=== PATIENT | female | born 1975 | race Caucasian/White ===

== ENCOUNTER 2017-11-30 16:49 | Emergency (ER) | payer MEDICAID, SELFPAY ==
[2017-11-30 17:04] VITALS: BP 144/94; PULSE 90; RESP 20; TEMP 37.1; O2SAT 100; BMI 24.1
--- NOTE | 2017-11-30 17:13 | HMH.EDUTC ---
[facility] [place] Disposition Clinical Impression: Nausea Disposition: Home, Self-Care Condition on Discharge: Good Instructions: DI for Nausea -- Adult, Sore Throat Additional Instructions: Drink plenty of fluids Take medication as prescribed FOllow up with family doctor Return if needed Small frequent meals, no fried food for next few days to allow stomach time to settle Over the counter Motrin or Tylenol as needed for fever or pain If you began to have any life threatening conditions go straight to ER Prescriptions: Ondansetron [Zofran 4mg ODT] 4 mg PO Q8H PRN #20 tab.rapdis PRN Reason: Nausea Referrals: Richie Arora [Primary Care Provider] - Forms: Work/School Release Time of Disposition: 17:24 Medical Decision Making - Medical Records Medical records reviewed: Yes: I reviewed the patient's medical records. Vital Signs: 11/30/17 17:04 Temperature 98.7 F Temperature Source Temporal Artery Scan Pulse Rate [Right Radial] 90 Respiratory Rate 20 Blood Pressure [Right Arm] 144/94 Blood Pressure Mean [Right Arm] 110 02 Sat by Pulse Oximetry 100 Oxygen Delivery Method Room Air - Lab Data Lab results reviewed: Yes: I reviewed the patient's lab results. - Jeffry Inquiry Pt receiving controlled substance: No Jeffry was queried for this patient: No [facility] [place] HPI - General Stated complaint: Nausea Mode of Arrival: Family Vehicle Source of Information: Patient Limitations: No Limitations Description of Symptoms (Recalled from Triage Doc. by RN): PT C/O NAUSEA, HEADACHE,BODYACHES AND BILATERAL EAR PAIN FOR 2 DAYS. HEENT Symptoms (Recalled from RN notes): Yes (HEADACHE, EAR PAIN,BODY ACHES) Resp Symptoms (Recalled from RN notes): No Skin Symptoms (Recalled from RN notes): No MS Symptoms (Recalled from RN notes): No Functional Status (Recalled from RN notes): NA - History of Present Illness Provider Complaint: Patient state that she has not been feeling well for 2 days State that she has been having sore throat, cough, nausea, bilateral ear pain and sore throat States that several members of her family has had the flu and she was worried that she may have it too. State that all day today she has had nausea and state that she has not vomited yet but her stomach feels very upset - Related Data Home Medications Medication Instructions Recorded Confirmed Buprenorphine HCl/Naloxone HCl 1 each SL DAILY 11/30/17 11/30/17 [Suboxone 8 mg-2 mg Sl Film] Trazodone HCl 100 mg PO DAILY 11/30/17 11/30/17 Previous Rx's Medication Instructions Recorded Ondansetron [Zofran 4mg ODT] 4 mg PO Q8H PRN #20 tab.rapdis 11/30/17 Allergies Allergy/AdvReac Type Severity Reaction Status Date / Time Penicillins [PENICILLINS] Allergy Unknown Verified 11/30/17 17:09 buspirone [From BuSpar] Allergy Verified 11/30/17 17:09 - Worker's Comp Is this a Worker's Comp case?: No [facility] History I have reviewed the patient's past medical history: Yes Medical History: Denies:: Cancer, Diabetes Mellitus Type 1, Diabetes Mellitus Type 2, MRSA Laterality Cases: Bilateral: Carpal Tunnel Release Amputation: No - Social History Smoking Status: Never smoker Tobacco Type: cigarettes Alcohol Intake: never - Psychiatric History Expresses thoughts of harming self/others: None Suicide Plan Description: No Plan ROS Obtained: Yes All systems reviewed & no additional complaints - Constitutional Constitutional: Reports body ache, Reports chills - ENT Ears, Nose, Mouth, and Throat: Reports nasal congestion, Reports sore throat - Respiratory Respiratory: Yes cough - Gastrointestinal Gastrointestingal: Reports: nausea. Denies: diarrhea, vomiting Physical Exam - General General appearance: alert, in no apparent distress - Expanded ENT Exam Comment: Throat mildly red, irritated, no exudate - Respiratory Respiratory exam: Present: normal lung sounds bilaterally. Absent: respiratory distress - Cardiova
[2017-11-30 17:15] LABS: UTC Influenza A Antigen Negative (Negative); UTC Influenza B Antigen Negative (Negative)
--- NOTE | 2017-11-30 17:16 | ED_ITS ---
[facility] [place] Disposition Clinical Impression: Nausea Disposition: Home, Self-Care Condition on Discharge: Good Instructions: DI for Nausea -- Adult, Sore Throat Additional Instructions: Drink plenty of fluids Take medication as prescribed FOllow up with family doctor Return if needed Small frequent meals, no fried food for next few days to allow stomach time to settle Over the counter Motrin or Tylenol as needed for fever or pain If you began to have any life threatening conditions go straight to ER Prescriptions: Ondansetron [Zofran 4mg ODT] 4 mg PO Q8H PRN #20 tab.rapdis PRN Reason: Nausea Referrals: Richie Arora [Primary Care Provider] - Forms: Work/School Release Time of Disposition: 17:24 Medical Decision Making - Medical Records Medical records reviewed: Yes: I reviewed the patient's medical records. Vital Signs: 11/30/17 17:04 Temperature 98.7 F Temperature Source Temporal Artery Scan Pulse Rate [Right Radial] 90 Respiratory Rate 20 Blood Pressure [Right Arm] 144/94 Blood Pressure Mean [Right Arm] 110 02 Sat by Pulse Oximetry 100 Oxygen Delivery Method Room Air - Lab Data Lab results reviewed: Yes: I reviewed the patient's lab results. - Jeffry Inquiry Pt receiving controlled substance: No Jeffry was queried for this patient: No [facility] [place] HPI - General Stated complaint: Nausea Mode of Arrival: Family Vehicle Source of Information: Patient Limitations: No Limitations Description of Symptoms (Recalled from Triage Doc. by RN): PT C/O NAUSEA, HEADACHE,BODYACHES AND BILATERAL EAR PAIN FOR 2 DAYS. HEENT Symptoms (Recalled from RN notes): Yes (HEADACHE, EAR PAIN,BODY ACHES) Resp Symptoms (Recalled from RN notes): No Skin Symptoms (Recalled from RN notes): No MS Symptoms (Recalled from RN notes): No Functional Status (Recalled from RN notes): NA - History of Present Illness Provider Complaint: Patient state that she has not been feeling well for 2 days State that she has been having sore throat, cough, nausea, bilateral ear pain and sore throat States that several members of her family has had the flu and she was worried that she may have it too. State that all day today she has had nausea and state that she has not vomited yet but her stomach feels very upset - Related Data Home Medications Medication Instructions Recorded Confirmed Buprenorphine HCl/Naloxone HCl 1 each SL DAILY 11/30/17 11/30/17 [Suboxone 8 mg-2 mg Sl Film] Trazodone HCl 100 mg PO DAILY 11/30/17 11/30/17 Previous Rx's Medication Instructions Recorded Ondansetron [Zofran 4mg ODT] 4 mg PO Q8H PRN #20 tab.rapdis 11/30/17 Allergies Allergy/AdvReac Type Severity Reaction Status Date / Time Penicillins [PENICILLINS] Allergy Unknown Verified 11/30/17 17:09 buspirone [From BuSpar] Allergy Verified 11/30/17 17:09 - Worker's Comp Is this a Worker's Comp case?: No [facility] History I have reviewed the patient's past medical history: Yes Medical History: Denies:: Cancer, Diabetes Mellitus Type 1, Diabetes Mellitus Type 2, MRSA Laterality Cases: Bilateral: Carpal Tunnel Release Amputation: No - Social History Smoking Status: Never smoker Tobacco Type: cigarettes Alcohol Intake: never - Psychiatric History Expresses thoughts of harming self/others: None Suicide Plan Description: No Plan
[2017-11-30 17:27] VITALS: BP 139/86; PULSE 87; RESP 20; TEMP 37.1; O2SAT 100
== END 2017-11-30 17:31 | disposition home or self-care (01) ==
PROVIDERS: Emergency Provider Nurse Practitioner; Family Provider Emergency Medicine; PCP Internal Medicine
DX: R11.0 Nausea (principal)
CPT/HCPCS: 87804; 99202

== ENCOUNTER 2019-03-16 12:19 | Emergency (ER) | payer MEDICAID, SELFPAY ==
[2019-03-16 12:20] VITALS: BP 128/89; PULSE 86; RESP 18; TEMP 37.1; O2SAT 98; BMI 25.0
--- NOTE | 2019-03-16 12:46 | HMH.EDUTC ---
[facility] [place] Disposition Clinical Impression: Lymphadenopathy Athlete's foot Qualifiers: Laterality: bilateral Qualified Code(s): B35.3 - Tinea pedis Disposition: Home, Self-Care Condition on Discharge: Good Instructions: DI for Lymphadenopathy Additional Instructions: Apply warm wet compresses to the affected area on your neck three or four times per day until this resolves. Follow up with your regular doctor. Take the medications as prescribed. I put refills on the medication for athlete's foot. You will probably need to repeat it on down the road. Prescriptions: Clotrimazole [Antifungal] 1 applicatio TP BID 14 Days #1 tube Clindamycin HCl [Clindamycin HCl 300mg Cap] 300 mg PO Q8 10 Days #30 cap Referrals: Richie Arora [Primary Care Provider] - Forms: Work/School Release Time of Disposition: 13:04 Medical Decision Making - Medical Records Medical records reviewed: Yes: I reviewed the patient's medical records. - Jeffry Inquiry Pt receiving controlled substance: No Jeffry was queried for this patient: No Vital Signs: 03/16/19 12:20 03/16/19 13:07 Temperature 98.8 F 98.8 F Temperature Source Oral Oral Pulse Rate 86 Pulse Rate [Left Radial] 86 Respiratory Rate 18 18 Blood Pressure 128/89 Blood Pressure [Right Arm] 128/89 Blood Pressure Mean [Right Arm] 102 Blood Pressure Source Automatic Cuff Blood Pressure Source [Right Arm] Automatic Cuff Blood Pressure Position Sitting Blood Pressure Position [Right Arm] Sitting 02 Sat by Pulse Oximetry 98 Oxygen Delivery Method Room Air Room Air [facility] [place] HPI - General Stated complaint: neck swollen Time Seen by Provider: 03/16/19 12:46 Mode of Arrival: Ambulatory Source of Information: Patient Limitations: No Limitations Description of Symptoms (Recalled from Triage Doc. by RN): swollen gland and athlete's foot HEENT Symptoms (Recalled from RN notes): Yes Resp Symptoms (Recalled from RN notes): No Skin Symptoms (Recalled from RN notes): No MS Symptoms (Recalled from RN notes): Yes Functional Status (Recalled from RN notes): wnl - History of Present Illness Provider Complaint: She has a sore throat and a swollen lymph node in the right side of her neck. This has been going on for the past 4 days. Around a month ago she had similar symptoms. She took antibiotics that were prescribed by her doctor and it got better. She also states she has athelete's foot of both her feet. - Related Data Home Medications Medication Instructions Recorded Confirmed Trazodone HCl 100 mg PO DAILY 11/30/17 02/10/19 Previous Rx's Medication Instructions Recorded Clindamycin HCl [Clindamycin HCl 300 mg PO Q8 10 Days #30 cap 03/16/19 300mg Cap] Clotrimazole [Antifungal] 1 applicatio TP BID 14 Days #1 tube 03/16/19 Allergies Allergy/AdvReac Type Severity Reaction Status Date / Time Penicillins [PENICILLINS] Allergy Unknown Verified 11/30/17 17:09 buspirone [From BuSpar] Allergy Verified 11/30/17 17:09 - Worker's Comp Is this a Worker's Comp case?: No [facility] History - Hepatitis A Screen Drug use history?: No High risk sexual behaviors?: No History of sexually transmitted infection?: No Currently employed?: No Childcare worker?: No Do you have indoor plumbing?: Yes Do you have electricity?: Yes Attestation statement:: This patient has been screened for Hepatitis A risk factors. I have reviewed the patient's past medical history: Yes Medical History: Reports:: Hypertension Denies:: Cancer, Diabetes Mellitus Type 1, Diabetes Mellitus Type 2, Gastrointestinal Bleed, MRSA, Ulcer Laterality Cases: Bilateral: Carpal Tunnel Release Other Surgeries: Yes: Appendectomy, Cholecystectomy, , Hysterectomy-Total Amputation: No Fractures: No - Social History Educational Level: Completed High School Smoking Status: Current every day smoker Tobacco Type: cigarettes # Packs/Day (cigarettes): 1 Alcohol Intake: never Occupational St
--- NOTE | 2019-03-16 12:54 | ED_ITS ---
[facility] [place] Disposition Clinical Impression: Lymphadenopathy Athlete's foot Qualifiers: Laterality: bilateral Qualified Code(s): B35.3 - Tinea pedis Disposition: Home, Self-Care Condition on Discharge: Good Instructions: DI for Lymphadenopathy Additional Instructions: Apply warm wet compresses to the affected area on your neck three or four times per day until this resolves. Follow up with your regular doctor. Take the medications as prescribed. I put refills on the medication for athlete's foot. You will probably need to repeat it on down the road. Prescriptions: Clotrimazole [Antifungal] 1 applicatio TP BID 14 Days #1 tube Clindamycin HCl [Clindamycin HCl 300mg Cap] 300 mg PO Q8 10 Days #30 cap Referrals: Richie Arora [Primary Care Provider] - Forms: Work/School Release Time of Disposition: 13:04 Medical Decision Making - Medical Records Medical records reviewed: Yes: I reviewed the patient's medical records. - Jeffry Inquiry Pt receiving controlled substance: No Jeffry was queried for this patient: No Vital Signs: 03/16/19 12:20 03/16/19 13:07 Temperature 98.8 F 98.8 F Temperature Source Oral Oral Pulse Rate 86 Pulse Rate [Left Radial] 86 Respiratory Rate 18 18 Blood Pressure 128/89 Blood Pressure [Right Arm] 128/89 Blood Pressure Mean [Right Arm] 102 Blood Pressure Source Automatic Cuff Blood Pressure Source [Right Arm] Automatic Cuff Blood Pressure Position Sitting Blood Pressure Position [Right Arm] Sitting 02 Sat by Pulse Oximetry 98 Oxygen Delivery Method Room Air Room Air [facility] [place] HPI - General Stated complaint: neck swollen Time Seen by Provider: 03/16/19 12:46 Mode of Arrival: Ambulatory Source of Information: Patient Limitations: No Limitations Description of Symptoms (Recalled from Triage Doc. by RN): swollen gland and athlete's foot HEENT Symptoms (Recalled from RN notes): Yes Resp Symptoms (Recalled from RN notes): No Skin Symptoms (Recalled from RN notes): No MS Symptoms (Recalled from RN notes): Yes Functional Status (Recalled from RN notes): wnl - History of Present Illness Provider Complaint: She has a sore throat and a swollen lymph node in the right side of her neck. This has been going on for the past 4 days. Around a month ago she had similar symptoms. She took antibiotics that were prescribed by her doctor and it got better. She also states she has athelete's foot of both her feet. - Related Data Home Medications Medication Instructions Recorded Confirmed Trazodone HCl 100 mg PO DAILY 11/30/17 02/10/19 Previous Rx's Medication Instructions Recorded Clindamycin HCl [Clindamycin HCl 300 mg PO Q8 10 Days #30 cap 03/16/19 300mg Cap] Clotrimazole [Antifungal] 1 applicatio TP BID 14 Days #1 tube 03/16/19 Allergies Allergy/AdvReac Type Severity Reaction Status Date / Time Penicillins [PENICILLINS] Allergy Unknown Verified 11/30/17 17:09 buspirone [From BuSpar] Allergy Verified 11/30/17 17:09 - Worker's Comp Is this a Worker's Comp case?: No [facility] History - Hepatitis A Screen Drug use history?: No High risk sexual behaviors?: No History of s
[2019-03-16 13:07] VITALS: BP 128/89; PULSE 86; RESP 18; TEMP 37.1; O2SAT 98
== END 2019-03-16 13:08 | disposition home or self-care (01) ==
PROVIDERS: Emergency Provider Nurse Practitioner Family; PCP Internal Medicine
DX: R59.1 Generalized enlarged lymph nodes (principal); B35.3 Tinea pedis; I10 Essential (primary) hypertension; F17.210 Nicotine dependence, cigarettes, uncomplicated; Z88.0 Allergy status to penicillin
CPT/HCPCS: 99201

== ENCOUNTER → 2019-10-27 16:56 | Outpatient (CLI) | payer OTHER, SELFPAY | PROVIDERS: Visit Provider Internal Medicine | DX: N39.0 Urinary tract infection, site not specified (principal) | CPT/HCPCS: 87086 ==

== ENCOUNTER → 2019-11-03 15:25 | Outpatient (CLI) | payer OTHER, SELFPAY ==
--- NOTE | 2019-11-03 15:38 | ECG_ITS ---
APPROVED REPORT Exam: Resting ECG HR:80 bpm ECG Measurements Heart Rate 80 AXES GA 162 P 43 QRSd 80 QRS 30 QT 388 T 2 QTc 447 <Conclusion> Normal sinus rhythm Normal ECG Electronically signed by : Richie Arora, 11/03/2019 15:46:50
== END ==
PROVIDERS: PCP Internal Medicine; Visit Provider Internal Medicine
DX: R07.9 Chest pain, unspecified (principal); R03.0 Elevated blood-pressure reading, without diagnosis of hypertension
CPT/HCPCS: 93005

== ENCOUNTER → 2019-11-09 14:16 | Outpatient (CLI) | payer OTHER, SELFPAY ==
--- NOTE | 2019-11-09 14:23 | CT_ITS ---
PROCEDURE: CT ABDOMEN PELVIS WO CON CLINICAL INDICATION: LT FLANK PAIN,HEMATURIA,H/O RENAL CALCULI Left flank pain, recently passed a stone with microscopic hematuria [facility] wo con from 02/10/2019 TECHNIQUE: Axial images obtained with sagittal and coronal reformats. All CT scans at the facility use one or more dose reduction, viz: automated exposure control, ma/kV adjustment per patient size (including targeted exams where dose is matched to indication, i.e. head), or iterative reconstruction technique. FINDINGS: LOWER THORAX: Status post cholecystectomy. Liver, spleen, adrenal glands, and pancreas have an unremarkable appearance. Kidneys have an unremarkable appearance. No renal or ureteral calculi or hydronephrosis. There is a moderate amount of retained colonic feces. Scattered small nodes are present in the mesenteries and right lower quadrant. There is history of appendectomy. There has been a prior hysterectomy. There is a small umbilical hernia which contains fat. IMPRESSION: 1. No acute finding. 2. No renal or ureteral calculi. 3. Constipation Dictated by: Simon Coburn MD 11/09/2019 14:53 Electronically signed by Simon Coburn MD in [place] 11/09/2019 14:53
== END ==
PROVIDERS: PCP Internal Medicine; Visit Provider Internal Medicine
DX: R10.9 Unspecified abdominal pain (principal); R31.0 Gross hematuria; Z87.442 Personal history of urinary calculi
CPT/HCPCS: 74176

== ENCOUNTER → 2019-11-30 10:50 | Outpatient (CLI) | payer OTHER, SELFPAY ==
--- NOTE | 2019-11-30 | CA_ITS ---
APPROVED REPORT Exam: Exercise Treadmill Technologist: Sona Haley Ht: 5 ft 4 in Wt: 150 lbs BSA: 1.73 m2 HR: 75 bpm BP: 116/89 mmHg Medical History Medical History: HTN Medications: Aspirin,,,,, Losartan,,,,, Cephalaxin,,,,, Quetiapine,,,,, NeBivolol,,,,, Allergies: PCN,BUSPIRONE Stress Test Details Test: Manual Treadmill HR Resting HR: 96 bpm Max Heart Rate (APMHR): 177 bpm Max HR Achieved: 171 bpm Target HR (85% APMHR): 150 bpm % of APMHR: 96 Recovery HR: 106 bpm BP Resting BP: 129.0/91.0 mmHg Max BP: 162.0/86.0 mmHg Recovery BP: 120.0/72.0 mmHg ECG Resting ECG: NORMAL SINUS RHYTHM Clinical Exercise duration: 07:00 min Highest Stage Achieved: Exercise capacity: 10.1 METs Stress ECG Conclusion EXERCISED 7:00 ON STEFANO PROTOCOL STOPPING DUE TO SOA. MAX HEART RATE 166 BPM WHICH IS 94% OF PM FOR AGE. MAX BP 162/86. METS = 10.1. TEST STOPPED DUE TO SOA AND LEG FATIGUE. NO CHEST PAIN. FREQUENT PAC'S AND OCCASIONAL PVC. ALLOWING FOR MOTION ARTIFACT DURING EXERCISE THE ST RESPONSE IS PROBABLY WITHIN NORMAL. WITHIN NORMAL GXT. ECHO IMAGING (REST AND STRESS) REPORTED SEPARATELY. Electronically signed by : Waqar Laurent, 12/01/2019 13:54:31
--- NOTE | 2019-11-30 10:51 | CA_ITS ---
APPROVED REPORT EXAM: Comprehensive 2D, Doppler, and color-flow Echocardiogram Machine Quilt Stuffer: Rosalee Washburn RDCS Ht: 5 ft 4 in Wt: 150lbs BSA: 1.73 BP: 124/85 mmHg Indications: Shortness of Breath R06.02, Chest Pain R07.89 STRESS ECHO Conclusion 1. The EKG portion of the exercise stress echo is negative for ischemia, patient has good exercise capacity achieved 10.1 mets of workload on treadmill, the blood pressure response to exercise was adequate, there was no exercise-induced chest discomfort. 2. No obvious echocardiographic evidence of segmental wall motion abnormality with exercise to suggest underlying ischemic heart disease, preserved left ventricular systolic function. 3. Normal exercise stress echo. Electronically signed by : Waqar Laurent, 12/01/2019 13:56:38
== END ==
PROVIDERS: PCP Internal Medicine; Visit Provider Internal Medicine Cardiovascular Disease
DX: R07.89 Other chest pain (principal); R06.09 Other forms of dyspnea; I10 Essential (primary) hypertension; F17.200 Nicotine dependence, unspecified, uncomplicated; Z82.49 Family history of ischemic heart disease and other diseases of the circulatory system
CPT/HCPCS: 93017; 93350

== ENCOUNTER 2020-10-13 13:43 | Emergency (ER) | payer OTHER, SELFPAY ==
[2020-10-13 15:30] VITALS: BP 140/103; PULSE 91; RESP 20; TEMP 36.8; O2SAT 98; BMI 27.4
--- NOTE | 2020-10-13 15:49 | HMH.EDUTC ---
[facility] [place] Disposition Clinical Impression: Bronchitis Sinusitis Qualifiers: Sinusitis location: unspecified location Chronicity: unspecified Qualified Code(s): J32.9 - Chronic sinusitis, unspecified Disposition: Home, Self-Care Condition on Discharge: Good Instructions: Sinusitis, DI for Sinusitis, Acute Bronchitis, Azithromycin, Methylprednisolone, Albuterol Oral Inhalation Additional Instructions: ? Start antibiotic today. Be sure to complete entire prescription even if feeling better ? Monitor temp. Tylenol every 4 hours as needed and / or ibuprofen every 6 hours as needed ( As long as your primary care physician has told you that it ok to take both. For fever/aches/pains ER if no less than 101 despite Tylenol or Motrin ? Humidifier/vaporizer or hot steamy shower ? Inhaler every 4-6 hours as needed like we discussed. If unsure how to use it, ask pharmacist to demonstrate how. Should help open airways and improve cough, wheezing, and shortness of breath ? Mucinex during the day for your cough and cough suppressant only at night. Be sure to drink lots of water. Insurance may not cover a prescriptions for mucinex. Might be cheaper to get 400mg tablets and take 2 tablet in the morning, mid-day and evening with lots of water. *Start steroid today. Helps with inflammation therefore, cough and wheezing. Follow directions on the package. Reviewed side effects. Patient reports taking them before. Follow up IMMEDIATELY for new or worsening of symptoms OR no noticeable improvement over the next 48-72 hours. 911 immediately for any life threatening symptoms such as chest pain or difficulty breathing You were tested for today for COVID19 your test result should be back in the next 24-48 hours, you may call to the [facility] to see if your test results are back in the next 48 hours [phone] [facility] hours are 9am-9pm You was given a handout with instructions for Self Quarantine and Self isolation for while you wait on test results and what to do if they are positive If you are positive the Health Dept will be contacting you also Prescriptions: Albuterol Sulfate [Proventil-HFA 90mcg/puff Inh] 1 - 2 puffs IH Q4HP PRN #1 inh PRN Reason: Shortness Of Breath Transmission Status: Pending to [facility] # methylPREDNISolone [Medrol 4mg tab] 4 mg PO DIRECTED #21 tab Transmission Status: Pending to [id number] [facility] # Azithromycin [Z-Keaton 250mg Tab] 250 mg PO DIRECTED #6 tab Transmission Status: Pending to [facility] # Referrals: Richie Arora [Primary Care Provider] - As needed Time of Disposition: 15:57 Medical Decision Making - Jeffry Inquiry Pt receiving controlled substance: No Jeffry was queried for this patient: No Vital Signs: 10/13/20 15:30 Temperature 98.3 F Temperature Source Oral Pulse Rate [Right Brachial] 91 H Respiratory Rate 20 Blood Pressure [Right Arm] 140/103 H Blood Pressure Mean [Right Arm] 115 Blood Pressure Source [Right Arm] Automatic Cuff Blood Pressure Position [Right Arm] Sitting 02 Sat by Pulse Oximetry 98 Oxygen Delivery Method Room Air - Lab Data Lab results reviewed: Yes: I reviewed the patient's lab results. Orders (Tests/Meds): ORDERS Category Date Time Status Covid-19 Nasal PCR ([facility]) Routine Lab 10/13/20 15:15 Received [facility] [place] HPI - General Stated complaint: cough, MUSTAFA SOB Time Seen by Provider: 10/13/20 15:49 Mode of Arrival: Ambulatory Source of Information: Patient Limitations: No Limitations Description of Symptoms (Recalled from Triage Doc. by RN): PATIENT C/O COUGH, FEVER AND CHEST CONGESTION SINCE YESTERDAY MORNING HEENT Symptoms (Recalled from RN notes): No Resp Symptoms (Recalled from RN notes): Yes Skin Symptoms (Recalled from RN notes): No MS Symptoms (Recalled from RN notes): No Functional Status (Recalled from RN notes): wnl - History of Present Illness Provider Complaint: Patient states that she has been having cough, chest
[2020-10-13 16:00] VITALS: BP 140/103; PULSE 91; RESP 20; TEMP 36.8; O2SAT 98
[2020-10-13 20:07] LABS: UTC Influenza A Antigen Negative (Negative)
[2020-10-13 20:08] LABS: UTC Influenza B Antigen Negative (Negative)
== END 2020-10-13 16:08 | disposition home or self-care (01) ==
PROVIDERS: Emergency Provider Nurse Practitioner; PCP Internal Medicine
DX: Z20.822 Contact with and (suspected) exposure to COVID-19 (principal); J20.9 Acute bronchitis, unspecified; J32.9 Chronic sinusitis, unspecified; I10 Essential (primary) hypertension; F17.210 Nicotine dependence, cigarettes, uncomplicated; Z88.0 Allergy status to penicillin; R00.2 Palpitations; Z79.899 Other long term (current) drug therapy
CPT/HCPCS: 87804; 99202; G0463; U0003

== ENCOUNTER 2021-01-08 04:22 | Emergency (ER) | payer OTHER, SELFPAY ==
[2021-01-08 04:33] VITALS: BP 136/91; PULSE 88; RESP 16; TEMP 36.6; O2SAT 98; BMI 27.4
--- NOTE | 2021-01-08 04:55 | HMH.EDEYEP ---
ED Disposition Clinical Impression: Corneal abrasion Qualifiers: Encounter type: initial encounter Laterality: right Qualified Code(s): S05.01XA - Injury of conjunctiva and corneal abrasion without foreign body, right eye, initial encounter Disposition: Home, Self-Care Condition on Discharge: Good Instructions: DI for Corneal Abrasion Additional Instructions: call dr rothman this am for close follow up Referrals: Richie Arora [Primary Care Provider] - - Critical Care Critical Care Time: No Attestation: On 01/08/21, the high probability of a clinically significant, sudden or life threatening deterioration of the following system(s) required my full and direct attention, intervention and personal management. The time I documented below is in addition to time spent performing reported procedures but includes the following listed in this critical care notation. Medical Decision Making - Medical Records Medical records reviewed: Yes: I reviewed the patient's medical records. - Jeffry Inquiry Pt receiving controlled substance: No Vital Signs: 01/08/21 04:33 Temperature 97.9 F Temperature Source Oral Pulse Rate [Right] 88 Respiratory Rate 16 Blood Pressure [Right Arm] 136/91 H Blood Pressure Mean [Right Arm] 106 Blood Pressure Source [Right Arm] Automatic Cuff Blood Pressure Position [Right Arm] Supine 02 Sat by Pulse Oximetry 98 Oxygen Delivery Method Room Air Medical Decision Narrative: call dr rothman this am for follow up Eye Problem HPI - General Chief complaint: Eye Problems Stated complaint: Pain in Rt eye Time Seen by Provider: 01/08/21 04:45 Mode of Arrival: Ambulatory Source of Information: Patient, Medical Record Limitations: No Limitations Description of Symptoms (Recalled from ER Triage Doc. by RN): Pt states she got something in her eye yesterday and it got worse tonight, Pt's right eye red and watering - History of Present Illness HPI Narrative: fb sensation rt eye worse tonight - MD chief complaint: foreign body Onset (ago): hour(s) Onset description: gradual Location: right eye Eye Symptoms: foreign body sensation Place: home Severity: moderate Treatments Prior to Arrival: none - Related Data Patient tetanus UTD: Yes Home Medications Medication Instructions Recorded Confirmed aspirin 81 mg tablet,delayed 81 mg PO DAILY 11/15/19 11/15/19 release quetiapine 50 mg tablet 50 mg PO DAILY tab 11/15/19 11/15/19 bisoprolol fumarate 5 mg tablet 5 mg PO DAILY tab 12/12/19 12/12/19 Previous Rx's Medication Instructions Recorded losartan 50 mg-hydrochlorothiazide 1 tab PO DAILY #30 tab 11/15/19 12.5 mg tablet Albuterol Sulfate [Proventil-HFA 1 - 2 puffs IH Q4HP PRN #1 inh 10/13/20 90mcg/puff Inh] Azithromycin [Z-Keaton 250mg Tab] 250 mg PO DIRECTED #6 tab 10/13/20 methylPREDNISolone [Medrol 4mg 4 mg PO DIRECTED #21 tab 10/13/20 tab] Allergies Allergy/AdvReac Type Severity Reaction Status Date / Time Penicillins [PENICILLINS] Allergy Unknown Verified 12/12/19 08:48 buspirone [From BuSpar] Allergy Verified 12/12/19 08:48 [facility] History - Hepatitis A Screen Drug use history?: No High risk sexual behaviors?: No History of sexually transmitted infection?: No Currently employed?: No Childcare worker?: No Do you have indoor plumbing?: Yes Do you have electricity?: Yes Attestation statement:: This patient has been screened for Hepatitis A risk factors. I have reviewed the patient's past medical history: Yes Medical History: Reports:: Heart Murmur, Hypertension, Palpitations Denies:: Cancer, Diabetes Mellitus Type 1, Diabetes Mellitus Type 2, Gastrointestinal Bleed, MRSA, Ulcer Laterality Cases: Bilateral: Carpal Tunnel Release Other Surgeries: Yes: Appendectomy, Cholecystectomy, , Hysterectomy-Total Amputation: No Fractures: No - Social History Smoking Status: Current every day smoker Tobacco Type: cigarettes # Packs/Day (c
[2021-01-08 05:22] VITALS: BP 132/88; PULSE 82; RESP 16; TEMP 36.6; O2SAT 98
== END 2021-01-08 05:24 | disposition home or self-care (01) ==
PROVIDERS: Emergency Provider Emergency Medicine; PCP Internal Medicine
DX: S05.01XA Injury of conjunctiva and corneal abrasion without foreign body, right eye, initial encounter (principal); I10 Essential (primary) hypertension; R01.1 Cardiac murmur, unspecified; F17.210 Nicotine dependence, cigarettes, uncomplicated; Z88.0 Allergy status to penicillin
CPT/HCPCS: 99281

== ENCOUNTER → 2021-02-03 09:46 | Outpatient (CLI) | payer OTHER, SELFPAY ==
--- NOTE | 2021-02-03 09:49 | MM_ITS ---
PROCEDURE INFORMATION: Exam: MG Screening 3D Mammography Exam date and time: 02/03/2021 9:49 AM Age: 46 years old Clinical indication: Encounter for screening mammogram for malignant neoplasm of breast TECHNIQUE: Imaging protocol: Screening tomosynthesis and 2D mammography including computer-aided detection (CAD) when performed. COMPARISON: No relevant prior studies available. FINDINGS: MAMMOGRAPHY: Breast composition: The breast tissue is heterogeneously dense, which may obscure small masses. Mass: None. Architectural distortion: None. Calcifications: No suspicious calcifications. Asymmetric density: None. Skin thickening: None. Axillary adenopathy: None. IMPRESSION: No mammographic evidence of malignancy. Annual screening is recommended unless otherwise clinically indicated. ASSESSMENT: BI-RADS Category 1: Negative
== END ==
PROVIDERS: PCP Internal Medicine; Visit Provider Internal Medicine
DX: Z12.31 Encounter for screening mammogram for malignant neoplasm of breast (principal)
CPT/HCPCS: 77063; 77067

== ENCOUNTER → 2021-02-14 14:58 | Outpatient (CLI) | payer OTHER, SELFPAY ==
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
== END ==
PROVIDERS: PCP Internal Medicine; Visit Provider Internal Medicine
DX: M25.561 Pain in right knee (principal)
CPT/HCPCS: 73562

== ENCOUNTER 2021-05-24 18:18 | Emergency (ER) | payer OTHER, SELFPAY ==
[2021-05-24 19:10] VITALS: BP 166/104; PULSE 86; RESP 18; TEMP 37.1; O2SAT 100; BMI 25.4
--- NOTE | 2021-05-24 19:32 | HMH.EDUTC ---
[facility] [place] Clinical Impression: Exposure to COVID-19 virus Sinusitis Qualifiers: Sinusitis location: unspecified location Chronicity: unspecified Qualified Code(s): J32.9 - Chronic sinusitis, unspecified Disposition: Home, Self-Care Condition on Discharge: Good Instructions: DI for COVID-19 (Suspected or Confirmed ), Coronavirus Disease 2019, Preventing the Spread of Coronavirus Discharge Instructions Additional Instructions: *Monitor Temp, Over the counter Motrin or Tylenol as directed/as needed Tylenol every 4 hours and Motrin every 6 hours (as long as your family doctor has told you that you can take it) for fever or pain. and straight to ER if unable to lower temp less than 101.0 after medication given *Warm salt water gargles may help to soothe the throat *Throat Lozenges *Warm fluids like tea with honey may help to soothe the throat *Sleep elevated *Humidifier/Vaporizer Follow up IMMEDIATELY for new or worsening symptoms or no Noticeable improvement over the next 48-72 hours. 911 for difficulty breathing or swallowing Make sure to follow up with Family Doctor for further evaluation and treatment of your Blood pressure You were tested for today for COVID19 your test result should be back in the next 24-48 hours, you may call to the [facility] to see if your test results are back in the next 48 hours [phone] [facility] hours are 9am-9pm You was given a handout with instructions for Self Quarantine and Self isolation for while you wait on test results and what to do if they are positive If you are positive the Health Dept will be contacting you also Make sure to take your Vitamins Vit. C Vit D and Zinc if you can take them Prescriptions: methylPREDNISolone [Medrol 4mg tab] 4 mg PO DIRECTED #21 tab Transmission Status: Pending to [facility] Azithromycin [Z-Keaton 250mg Tab] 250 mg PO DIRECTED #6 tab Transmission Status: Pending to [facility] Referrals: Richie Arora [Primary Care Provider] - As needed Forms: Work/School Release Time of Disposition: 20:07 Medical Decision Making - Jeffry Inquiry Pt receiving controlled substance: No Jeffry was queried for this patient: No Vital Signs: 05/24/21 19:10 05/24/21 19:53 Temperature 98.8 F 98.8 F Temperature Source Oral Pulse Rate 86 Pulse Rate [Right Brachial] 86 Respiratory Rate 18 18 Blood Pressure 166/104 H Blood Pressure [Right Arm] 166/104 H Blood Pressure Mean [Right Arm] 124 Blood Pressure Source [Right Arm] Automatic Cuff Blood Pressure Position [Right Arm] Sitting 02 Sat by Pulse Oximetry 100 Oxygen Delivery Method Room Air Orders (Tests/Meds): ED MEDICATIONS Discontinued Medications Generic Name Dose Route Start Last Admin Trade Name Freq PRN Reason Stop Dose Admin Ketorolac Tromethamine 30 mg 05/24/21 19:40 05/24/21 19:50 Ketorolac 60mg/2ml Vial IM 05/24/21 19:41 30 mg ONCE ONE Administration ORDERS Category Date Time Status Covid-19 Nasal PCR ([facility]) Routine Lab 05/24/21 19:04 Received Medical Decision Narrative: Discussed with patient about blood pressure and recommended transfer to the ED for further work up and evaluation and patient declined states that she feels like her BP is elevated due to headache and will follow up with her PCP if needed for blood pressure wants to get tested for COVID Patient states that she has taken Toradol in the past without complications or reactions Patient state that she has taken azithromycin and medrol in the past without reaction or complication state that headache is better after medication [facility] HPI - General Stated complaint: exposure, headache,sore throat Time Seen by Provider: 05/24/21 19:32 Mode of Arrival: Ambulatory Source of Information: Patient Limitations: No Limitations Description of Symptoms (Recalled from Triage Doc. by RN): COVID TEST D/T EXPOSURE. C/O HEADACHE, DIZZINESS, AND SORE THROAT HEENT Symptoms (Recalled from RN notes):
[2021-05-24 19:53] VITALS: BP 166/104; PULSE 86; RESP 18; TEMP 37.1; O2SAT 100
== END 2021-05-24 20:10 | disposition home or self-care (01) ==
PROVIDERS: Emergency Provider Nurse Practitioner; PCP Internal Medicine
DX: Z20.822 Contact with and (suspected) exposure to COVID-19 (principal); J32.9 Chronic sinusitis, unspecified; I10 Essential (primary) hypertension; R01.1 Cardiac murmur, unspecified; R00.2 Palpitations; F17.210 Nicotine dependence, cigarettes, uncomplicated; Z79.899 Other long term (current) drug therapy
CPT/HCPCS: 96372; 99202; G0463; U0003

== ENCOUNTER → 2021-07-03 16:19 | Outpatient (CLI) | payer OTHER, SELFPAY ==
--- NOTE | 2021-05-31 09:06 | PC.NURSE ---
relayed positive covid results to pt.
== END ==
PROVIDERS: Visit Provider Nurse Practitioner Family
DX: Z20.822 Contact with and (suspected) exposure to COVID-19 (principal); U07.1 COVID-19
CPT/HCPCS: U0003

== ENCOUNTER 2021-10-23 10:10 | Emergency (ER) | payer OTHER, SELFPAY ==
[2021-10-23 12:27] VITALS: BP 126/95; PULSE 67; RESP 18; TEMP 36.6; O2SAT 99; BMI 25.7
--- NOTE | 2021-10-23 12:46 | HMH.EDUTC ---
[facility] [place] Disposition Clinical Impression: Gastroenteritis, Exposure to COVID-19 virus Disposition: Home, Self-Care Condition on Discharge: Good Instructions: Gastroenteritis Diet, Viral Gastroenteritis, DI for Viral Gastroenteritis -- Adult Additional Instructions: Drink plenty of fluids. Take tylenol or ibuprofen for pain or fever. Take the medications as directed. Follow up with your regular doctor. GO TO THE ER FOR ANY WORSENING SYMPTOMS Quarantine until you know the results of your covid-19 test. Notify your school or workplace of your results and follow their instructions regarding return to work/school. The promethazine will make you drowsy, so don't drive or operate heavy machinery after taking it. The zofran shouldn't make you as drowsy as the promethazine. Prescriptions: Ondansetron [Zofran 4mg ODT] 4 mg PO Q8HP PRN #20 tab PRN Reason: Nausea Transmission Status: Pending to [facility] Promethazine HCl [Phenergan 25mg tab] 25 mg PO Q6H PRN #20 tab PRN Reason: Nausea And Vomiting Transmission Status: Pending to [facility] Referrals: Richie Arora [Primary Care Provider] - Forms: Work/School Release Time of Disposition: 12:52 Medical Decision Making - Medical Records Medical records reviewed: No: I reviewed the patient's medical records. - Jeffry Inquiry Pt receiving controlled substance: No Vital Signs: 10/23/21 12:27 Temperature 97.8 F Temperature Source Oral Pulse Rate [Left] 67 Respiratory Rate 18 Blood Pressure [Right Arm] 126/95 H Blood Pressure Mean [Right Arm] 105 02 Sat by Pulse Oximetry 99 [facility] HPI - General Stated complaint: vomiting Time Seen by Provider: 10/23/21 12:46 Mode of Arrival: Ambulatory Source of Information: Patient Limitations: No Limitations Description of Symptoms (Recalled from Triage Doc. by RN): PT C/O N/V AND FEVER. PT DECLINES FLU/COVID AND STREP SWABS. PT STATES SHE NEEDS A WORK NOTE. HEENT Symptoms (Recalled from RN notes): No Resp Symptoms (Recalled from RN notes): No Skin Symptoms (Recalled from RN notes): No MS Symptoms (Recalled from RN notes): No Functional Status (Recalled from RN notes): WNL - History of Present Illness Provider Complaint: She states that she has had n/v since 0330 this morning. She denies any diarrhea but she has had abominal cramping like it was going to start. She denies any sore throat, cough, congestion or fever. She has had some chilling. Her daughter had a stomach virus about 4 days ago. She tested negative for covid then and she got better after about 24 hours of vomiting. This patient has been fully vaccinated against covid-19 and influenza. She works at the [employer]. - Related Data Home Medications Medication Instructions Recorded Confirmed buprenorphine 2 mg-naloxone 0.5 mg 1 film BUCCAL DAILY 05/30/21 05/30/21 sublingual film estradiol 2 mg tablet 2 mg PO DAILY 05/30/21 05/30/21 trazodone 100 mg tablet 100 mg PO HS PRN 05/30/21 05/30/21 Previous Rx's Medication Instructions Recorded Ondansetron [Zofran 4mg ODT] 4 mg PO Q8HP PRN #20 tab 10/23/21 Promethazine HCl [Phenergan 25mg 25 mg PO Q6H PRN #20 tab 10/23/21 tab] Allergies Allergy/AdvReac Type Severity Reaction Status Date / Time Penicillins [PENICILLINS] Allergy Unknown Verified 05/30/21 11:21 buspirone [From BuSpar] Allergy Verified 05/30/21 11:21 - Worker's Comp Is this a Worker's Comp case?: No [facility] History - Hepatitis A Screen Drug use history?: No High risk sexual behaviors?: No History of sexually transmitted infection?: No Currently employed?: No Childcare worker?: No Do you have indoor plumbing?: Yes Do you have electricity?: Yes Attestation statement:: This patient has been screened for Hepatitis A risk factors. I have reviewed the patient's past medical history: Yes Medical History: Reports:: Heart Murmur, Hypertension, Palpitations
[2021-10-23 13:00] VITALS: BP 126/95; PULSE 67; RESP 18; TEMP 36.6
== END 2021-10-23 13:01 | disposition home or self-care (01) ==
PROVIDERS: Emergency Provider Nurse Practitioner Family; PCP Internal Medicine
DX: K52.9 Noninfective gastroenteritis and colitis, unspecified (principal); Z20.822 Contact with and (suspected) exposure to COVID-19; I10 Essential (primary) hypertension; F17.210 Nicotine dependence, cigarettes, uncomplicated; Z79.899 Other long term (current) drug therapy
CPT/HCPCS: 99202; C9803; G0463; U0003; U0005

== ENCOUNTER → 2021-10-30 12:15 | Outpatient (CLI) | payer OTHER, SELFPAY ==
[2021-10-31 11:18] LABS: Covid-19 Nasal PCR Sendout Lex NOT DETECTED
== END ==
PROVIDERS: Visit Provider Nurse Practitioner
DX: Z20.822 Contact with and (suspected) exposure to COVID-19 (principal)
CPT/HCPCS: C9803; U0004; U0005

== ENCOUNTER → 2021-11-14 14:43 | Outpatient (CLI) | payer OTHER, SELFPAY ==
--- NOTE | 2021-11-14 | ECG_ITS ---
APPROVED REPORT Exam: Resting ECG HR:74 bpm ECG Measurements Heart Rate 74 AXES RI 169 P 47 QRSd 84 QRS 45 QT 386 T 26 QTc 413 Conclusion SINUS RHYTHM NORMAL ECG UNCONFIRMED REPORT Electronically signed by : Richie Arora MD 11/19/2021 13:58:12
== END ==
PROVIDERS: PCP Internal Medicine; Visit Provider Internal Medicine
DX: R07.89 Other chest pain (principal)
CPT/HCPCS: 93005

== ENCOUNTER 2021-12-14 12:45 | Emergency (ER) | payer OTHER, SELFPAY ==
[2021-12-14 13:22] VITALS: BP 134/101; PULSE 112; RESP 16; TEMP 36.9; O2SAT 96; BMI 25.7
[2021-12-14 13:30] LABS: UTC Influenza A Antigen Negative (Negative)
[2021-12-14 13:31] LABS: UTC Influenza B Antigen Negative (Negative)
--- NOTE | 2021-12-14 13:49 | HMH.EDUTC ---
[facility] [place] Disposition Clinical Impression: Viral syndrome Disposition: Home, Self-Care Condition on Discharge: Good Instructions: Cough, DI for Viral Syndrome, DI for Nausea -- Adult Additional Instructions: *Monitor Temp, Over the counter Motrin or Tylenol as directed/as needed Tylenol every 4 hours and Motrin every 6 hours (as long as your family doctor has told you that you can take it) for fever or pain. and straight to ER if unable to lower temp less than 101.0 after medication given *Warm salt water gargles may help to soothe the throat *Throat Lozenges *Warm fluids like tea with honey may help to soothe the throat *Sleep elevated *Humidifier/Vaporizer Drink extra fluids with and between meals. If you have difficulty drinking, try very small amounts of water or suck on ice chips. ? Avoid fruit juices, as these do not replace minerals and can actually increase diarrhea. ? Children and adults can use sports drinks to replenish electrolytes. Younger children and infants should use products formulated for children, like oral rehydration solutions. ? Eat food in small amounts and let your stomach recover. ? Get lots of rest. You may feel tired or weak. ? No greasy or fried foods for the next 24-48 hours BRAT diet Bananas Rice Apples and Hendron ? Make sure to drink plenty of liquids ? Return if needed ? Straight to ER if any life threatening symptoms ? Zofran as prescribed ?? Follow up with family doctor in the next 48-72 hours if no improvement or any worsening of symptoms Follow up IMMEDIATELY for new or worsening symptoms or no Noticeable improvement over the next 48-72 hours. 911 for difficulty breathing or swallowing Prescriptions: Benzonatate [Benzonatate 100mg cap] 100 mg PO Q8HP PRN #30 cap PRN Reason: Cough [facility] Status: [facility] Ondansetron [Zofran 4mg ODT] 4 mg PO TIDP PRN #12 tab PRN Reason: Nausea Transmission Status: [facility] to [facility] Referrals: Richie Arora [Primary Care Provider] - As needed Time of Disposition: 13:57 Medical Decision Making - Jeffry Inquiry Pt receiving controlled substance: No Jeffry was queried for this patient: No Vital Signs: 12/14/21 13:22 12/14/21 13:53 Temperature 98.5 F Temperature Source Oral Pulse Rate [Left] 112 H Respiratory Rate 16 Blood Pressure [Right Arm] 134/101 H 127/97 H Blood Pressure Mean [Right Arm] 112 107 02 Sat by Pulse Oximetry 96 - Lab Data Lab results reviewed: Yes: I reviewed the patient's lab results. Lab Results 12/14/21 13:18: Influenza Type A Ag Negative, Influenza Type B Ag Negative Orders (Tests/Meds): ORDERS Category Date Time Status Full Resp Panel w/COVID ([facility]) Routine Lab 12/14/21 13:53 Ordered [facility] HPI - General Stated complaint: fever,cough Time Seen by Provider: 12/14/21 13:49 Mode of Arrival: Ambulatory Source of Information: Patient Limitations: No Limitations Description of Symptoms (Recalled from Triage Doc. by RN): pt c/o a fever, cough, fatigue and congestion x2 days. HEENT Symptoms (Recalled from RN notes): Yes Resp Symptoms (Recalled from RN notes): Yes Skin Symptoms (Recalled from RN notes): No MS Symptoms (Recalled from RN notes): No Functional Status (Recalled from RN notes): wnl - History of Present Illness Provider Complaint: Patient state that she has been having body aches, cough, and fatigue States that this morning she was having some nausea States that she didnt throw up but felt like she was going too and had a low grade fever State that she took Home COVID test and it was negative but grandchild is having similar symptoms - Related Data Home Medications Medication Instructions Recorded Confirmed buprenorphine 2 mg-naloxone 0.5 mg 1 film BUCCAL DAILY 05/30/21 05/30/21 sublingual film estradiol 2 mg tablet 2 mg PO DAILY 05/30/21 05/30/21 trazodone 100 mg tablet 100 mg PO HS PRN 05/30/21 05/30/21 Previous Rx's Med
[2021-12-14 13:53] VITALS: BP 127/97
[2021-12-14 14:02] VITALS: BP 127/97; PULSE 112; RESP 16; TEMP 36.9
[2021-12-14 14:02] LABS: Adenovirus,PCR Not Detected (NotDetected); Coronavirus 229E Not Detected (NotDetected); Coronavirus NL63 Not Detected (NotDetected); Coronavirus OC43 Not Detected (NotDetected); Coronovirus HKU1,PCR Not Detected (NotDetected); Human Metapneumovirus Not Detected (NotDetected); Influenza A, PCR Not Detected (NotDetected); Influenza AH1, 2009 Not Detected (NotDetected); Influenza AH1, PCR Not Detected (NotDetected); Influenza AH3,PCR Not Detected (NotDetected); Rhinovirus/Enterovirus Not Detected (NotDetected)
[2021-12-14 14:03] LABS: Bordetella Pertussis Not Detected (NotDetected); Chlamydophila Pneumoniae, PCR Not Detected (NotDetected); Coronavirus 19, PCR Not Detected (NotDetected); Influenza B, PCR Not Detected (NotDetected); Mycoplasma Pneumoniae, PCR Not Detected (NotDetected); Parainfluenza 1, PCR Not Detected (NotDetected); Parainfluenza 2, PCR Not Detected (NotDetected); Parainfluenza 3, PCR Not Detected (NotDetected); Parainfluenza 4, PCR Not Detected (NotDetected); Respiratory Syncytial Virus Not Detected (NotDetected)
== END 2021-12-14 14:03 | disposition home or self-care (01) ==
PROVIDERS: Emergency Provider Nurse Practitioner; PCP Internal Medicine
DX: B34.9 Viral infection, unspecified (principal); I10 Essential (primary) hypertension; F17.210 Nicotine dependence, cigarettes, uncomplicated
CPT/HCPCS: 87581; 87632; 87798; 87804; 99213; C9803; G0463; U0003; U0005

== ENCOUNTER → 2021-12-15 11:45 | Outpatient (CLI) | payer OTHER, SELFPAY ==
--- NOTE | 2021-12-15 11:49 | XR_ITS ---
FINAL REPORT CLINICAL HISTORY: FEVER AND COUGH. -COVID TEST, smoker COMPARISON: January 03, 2017 FINDINGS: Two views of the chest were obtained. The heart size and pulmonary vascularity are within normal limits. The mediastinum is normal. No acute pulmonary abnormality is identified. There is no pneumothorax. The bony thorax is intact. IMPRESSION: No active cardiopulmonary disease. Reviewed, Interpreted and Dictated by Kayden Rizvi III, MD Transcribed by Catia Garibay Authenticated by Kayden Rizvi III, MD on 12/15/2021 01:14:19 PM [facility]
== END ==
PROVIDERS: PCP Internal Medicine; Visit Provider Internal Medicine
DX: R05.9 Cough, unspecified (principal); R50.9 Fever, unspecified; Z72.0 Tobacco use
CPT/HCPCS: 71046

== ENCOUNTER 2022-07-02 16:25 | Emergency (ER) | payer OTHER, SELFPAY ==
[2022-07-02 16:26] VITALS: BP 137/89; PULSE 73; RESP 18; TEMP 36.9; O2SAT 100; BMI 25.7
--- NOTE | 2022-07-02 16:49 | EXP.UTC ---
Discharge Plan Disposition Patient Disposition: Home, Self-Care Condition: Good Prescriptions Prescriptions: New promethazine-DM 6.25-15 mg/5 mL Syrup 5 ml PO Q6H PRN (Reason: Cough) Qty: 240 0RF methylprednisolone 4 mg Tablets,Dose Pack 4 mg PO DIRECTED Qty: 21 0RF benzonatate [benzonatate] 100 mg capsule 100 mg PO TIDP PRN (Reason: Cough) Qty: 30 0RF cefdinir 300 mg capsule 300 mg PO BID Qty: 20 0RF No Action trazodone 100 mg tablet 100 mg PO HS PRN estradiol 2 mg tablet 1 mg PO DAILY ondansetron 4 MG tablet,disintegrating 4 mg PO TIDP PRN (Reason: Nausea) Qty: 12 0RF Referrals Follow up/Referrals: Richie Arora MD [Primary Care Provider] - See instructions Lisa Shine DPM [Staff Physician] - See instructions Activity Restrictions/Add. Instructions Additional Instructions/Restrictions: Drink plenty of fluids. Take tylenol or ibuprofen for pain or fever. Take the medications as directed. Follow up with your regular doctor. GO TO THE ER FOR ANY WORSENING SYMPTOMS Don't start the oral steroids until tomorrow, since you had the shot here today. The cough medication (promethazine dm) will make you drowsy, so don't drive or operate heavy machinery after taking it. Clinical Impressions Clinical Impression: Asthma exacerbation in COPD, Acute bronchitis Stand Alone Forms Stand Alone Forms: Work/School Release Instructions Patient Instructions: DI for Crush Injury Discharge ED Provider: Brad Warren [facility] General Stated complaint: COUGH, BODY ACHES POSS FEVER Mode of Arrival: Ambulatory Source of Information: Patient Time Seen by Provider: 07/02/22 16:49 Description of Symptoms (Recalled from Triage Doc. by RN): COUGH AND FEVER HEENT Symptoms (Recalled from RN notes): Yes Resp Symptoms (Recalled from RN notes): Yes Skin Symptoms (Recalled from RN notes): No MS Symptoms (Recalled from RN notes): No Functional Status (Recalled from RN notes): NA History of Present Illness Provider Complaint: She states that for the past 3 days she has had worsening chest congestion and productive cough. she has a history of copd. She does get pneumonia at times, but she refuses a chest x-ray today because she states that she does not feel that she is that bad yet. She denies shortness of breath. Related Data Home Medications Medication Instructions Recorded Confirmed trazodone 100 mg tablet 100 mg PO HS PRN 05/30/21 01/05/22 estradiol 2 mg tablet 1 mg PO DAILY 01/05/22 01/05/22 Previous Rx's Medication Instructions Recorded ondansetron 4 mg disintegrating 4 mg PO TIDP PRN Nausea #12 tabs 12/14/21 tablet benzonatate 100 mg capsule 100 mg PO TIDP PRN Cough #30 caps 07/02/22 cefdinir 300 mg capsule 300 mg PO BID #20 caps 07/02/22 methylprednisolone 4 mg tablets in 4 mg PO DIRECTED #21 tabs 07/02/22 a dose pack promethazine-DM 6.25 mg-15 mg/5 mL 5 ml PO Q6H PRN Cough #240 mL 07/02/22 oral syrup Allergies Allergy/AdvReac Type Severity Reaction Status Date / Time Penicillins [PENICILLINS] Allergy Unknown Verified 01/05/22 15:16 buspirone [From BuSpar] Allergy Verified 01/05/22 15:16 Worker's Comp Is this a Worker's Comp case?: No PFSH PFSH Medical History Chest pain Dyspnea Family history of heart disease Tobacco dependence syndrome Social History Smoking Status: Current every day smoker tobacco type: cigarettes packs per day: 2 second hand exposure: Yes alcohol intake: never substance use type: former substance user and amphetamines current occupational status: employed Travel in the last 8 weeks: None housing: house current occupational exposures/hazards: No ROS Obtained: Yes All systems reviewed & no additional complaints except as documented Constitutional Constitutional: Reports chills and Report
[2022-07-02 17:58] VITALS: BP 137/89; PULSE 73; RESP 18; TEMP 36.9; O2SAT 100
== END 2022-07-02 18:00 | disposition home or self-care (01) ==
PROVIDERS: Emergency Provider Nurse Practitioner Family; PCP Internal Medicine
DX: J44.1 Chronic obstructive pulmonary disease with (acute) exacerbation (principal); J20.9 Acute bronchitis, unspecified
CPT/HCPCS: 96372; 99212; G0463; J0696

== ENCOUNTER 2022-08-22 16:12 | Emergency (ER) | payer OTHER, SELFPAY ==
--- NOTE | 2022-08-22 17:02 | EXP.UTC ---
Discharge Plan Disposition Patient Disposition: Home, Self-Care Condition: Good Prescriptions Prescriptions: New benzonatate [benzonatate] 100 mg capsule 100 mg PO TIDP PRN (Reason: Cough) Qty: 30 0RF azithromycin [Zithromax] 250 mg tablet 250 mg PO UD DOSE PK Qty: 6 0RF Rx Instructions: Take two (2) tablets today, then one (1) tablet days #2 thru #5 methylprednisolone 4 mg Tablets,Dose Pack 4 mg PO DIRECTED Qty: 21 0RF No Action trazodone 100 mg tablet 100 mg PO HS PRN estradiol 2 mg tablet 1 mg PO DAILY ondansetron 4 MG tablet,disintegrating 4 mg PO TIDP PRN (Reason: Nausea) Qty: 12 0RF promethazine-DM 6.25-15 mg/5 mL Syrup 5 ml PO Q6H PRN (Reason: Cough) Qty: 240 0RF methylprednisolone 4 mg Tablets,Dose Pack 4 mg PO DIRECTED Qty: 21 0RF benzonatate [benzonatate] 100 mg capsule 100 mg PO TIDP PRN (Reason: Cough) Qty: 30 0RF cefdinir 300 mg capsule 300 mg PO BID Qty: 20 0RF Referrals Follow up/Referrals: Richie Arora MD [Primary Care Provider] - See instructions Activity Restrictions/Add. Instructions Additional Instructions/Restrictions: Drink plenty of fluids. Take tylenol or ibuprofen for pain or fever. Take the medications as directed. Follow up with your regular doctor. GO TO THE ER FOR ANY WORSENING SYMPTOMS Don't start the oral steroids until tomorrow, since you had the shot here today. Clinical Impressions Clinical Impression: Acute bronchitis, Sinusitis Stand Alone Forms Stand Alone Forms: Work/School Release Instructions Patient Instructions: Sinusitis, Acute Bronchitis, DI for Sinusitis, DI for Acute Bronchitis Discharge ED Provider: Brad Warren [facility] [place] HPI General Stated complaint: sore throat,cough MUSTAFA Time Seen by Provider: 08/22/22 17:02 History of Present Illness Provider Complaint: She states that for the past 5 days she has had sinus congestion, sinus drainage, and chest congestion. She has a productive cough with greenish sputum. Related Data Home Medications Medication Instructions Recorded Confirmed trazodone 100 mg tablet 100 mg PO HS PRN 08/27/21 04/04/22 estradiol 2 mg tablet 1 mg PO DAILY 01/05/22 01/05/22 Previous Rx's Medication Instructions Recorded ondansetron 4 mg disintegrating 4 mg PO TIDP PRN Nausea #12 tabs 12/14/21 tablet benzonatate 100 mg capsule 100 mg PO TIDP PRN Cough #30 caps 07/02/22 cefdinir 300 mg capsule 300 mg PO BID #20 caps 07/02/22 methylprednisolone 4 mg tablets in 4 mg PO DIRECTED #21 tabs 07/02/22 a dose pack promethazine-DM 6.25 mg-15 mg/5 mL 5 ml PO Q6H PRN Cough #240 mL 07/02/22 oral syrup azithromycin 250 mg tablet 250 mg PO UD DOSE PK #6 tabs 08/22/22 (Zithromax) benzonatate 100 mg capsule 100 mg PO TIDP PRN Cough #30 caps 08/22/22 methylprednisolone 4 mg tablets in 4 mg PO DIRECTED #21 tabs 08/22/22 a dose pack Allergies Allergy/AdvReac Type Severity Reaction Status Date / Time Penicillins [PENICILLINS] Allergy Unknown Verified 08/22/22 17:26 buspirone [From BuSpar] Allergy Verified 08/22/22 17:26 [facility] Medical History Chest pain Dyspnea Family history of heart disease Tobacco dependence syndrome Social History Smoking Status: Current every day smoker tobacco type: cigarettes packs per day: 2 second hand exposure: Yes alcohol intake: never substance use type: former substance user and amphetamines current occupational status: employed Travel in the last 8 weeks: None housing: house current occupational exposures/hazards: No ROS Obtained: Yes All systems reviewed & no additional complaints except as documented Constitutional Constitutional: Reports chills and Reports fever(s) Eyes Eyes: Denies eye discharge ENT Ears, Nose, Mouth, and Throat: Reports as per HPI Cardiovascular Cardio
[2022-08-22 17:03] LABS: Adenovirus,PCR Not Detected (NotDetected); Bordetella Pertussis Not Detected (NotDetected); Chlamydophila Pneumoniae, PCR Not Detected (NotDetected); Coronavirus 19, PCR Not Detected (NotDetected); Coronavirus 229E Not Detected (NotDetected); Coronavirus NL63 Not Detected (NotDetected); Coronavirus OC43 Not Detected (NotDetected); Coronovirus HKU1,PCR Not Detected (NotDetected); Human Metapneumovirus Not Detected (NotDetected); Influenza A, PCR Not Detected (NotDetected); Influenza AH1, 2009 Not Detected (NotDetected); Influenza AH1, PCR Not Detected (NotDetected); Influenza AH3,PCR Not Detected (NotDetected); Influenza B, PCR Not Detected (NotDetected); Mycoplasma Pneumoniae, PCR Not Detected (NotDetected); Parainfluenza 1, PCR Not Detected (NotDetected); Parainfluenza 2, PCR Not Detected (NotDetected); Parainfluenza 3, PCR Not Detected (NotDetected); Parainfluenza 4, PCR Not Detected (NotDetected); Respiratory Syncytial Virus Not Detected (NotDetected); Rhinovirus/Enterovirus Not Detected (NotDetected)
[2022-08-22 17:04] LABS: UTC Influenza A Antigen Negative (Negative); UTC Strep Screen (Rapid) Negative (Negative)
[2022-08-22 17:05] LABS: UTC Influenza B Antigen Negative (Negative)
[2022-08-22 17:23] VITALS: BP 122/92; PULSE 80; RESP 16; TEMP 36.8; O2SAT 98; BMI 25.7
[2022-08-22 18:33] VITALS: BP 122/92; PULSE 80; RESP 16; TEMP 36.8
== END 2022-08-22 18:33 | disposition home or self-care (01) ==
PROVIDERS: Emergency Provider Nurse Practitioner Family; PCP Internal Medicine
DX: J20.9 Acute bronchitis, unspecified (principal); J32.9 Chronic sinusitis, unspecified
CPT/HCPCS: 87581; 87632; 87798; 87804; 87880; 96372; 99212; C9803; G0463; J0696; U0003; U0005

== ENCOUNTER → 2022-09-01 16:31 | Outpatient (CLI) | payer OTHER, SELFPAY ==
--- NOTE | 2022-09-01 16:42 | XR_ITS ---
PROCEDURE INFORMATION: Exam: XR Chest Exam date and time: 09/01/2022 4:47 PM Age: 47 years old Clinical indication: Cough TECHNIQUE: Imaging protocol: Radiologic exam of the chest. Views: 2 views. COMPARISON: CR XR CHEST 2V 12/15/2021 11:53 AM FINDINGS: Lungs: Punctate granuloma in the left lower lobe is re-identified. No evidence of pneumonia or interstitial edema. Pleural spaces: Unremarkable. No pleural effusion. No pneumothorax. Heart/Mediastinum: Unremarkable. No cardiomegaly. Bones/joints: Unremarkable. IMPRESSION: No evidence of pneumonia or interstitial edema.
== END ==
PROVIDERS: PCP Internal Medicine; Visit Provider Internal Medicine
DX: R05.9 Cough, unspecified (principal); R06.2 Wheezing; R09.81 Nasal congestion
CPT/HCPCS: 71046

== ENCOUNTER → 2023-01-04 15:04 | Outpatient (CLI) | payer OTHER, SELFPAY ==
[2023-01-04 16:24] LABS: Basophils # 0.2 K/mm3 (0-0.2); Basophils % 1.6 % (0.1-2.0); Eosinophils # 0.2 K/mm3 (0.0-0.4); Eosinophils % 2.3 % (0.1-12.0); Hematocrit 40.1 % (37.0-47.0); Hemoglobin 12.7 g/dL (12.2-16.2); Lymphocytes % 43.2 % (10-50); Mean Corpuscular HGB Conc 31.7 g/dL (31.8-35.4); Mean Corpuscular Hemoglobin 28.7 pg (27.0-31.2); Mean Corpuscular Volume 90.6 fl (81-99); Mean Platelet Volume 8.8 fl (7.4-10.4); Monocytes # 0.6 K/mm3 (0.1-1.0); Monocytes % 6.7 % (1.7-9.3); Neutrophils # 4.3 K/mm3 (1.8-7.8); Neutrophils % 46.2 % (37.0-80.0); Platelet Count 298 K/mm3 (142-424); Red Blood Count 4.43 M/mm3 (4.20-5.40); Red Cell Distribution Width 13.5 % (11.5-17.5); White Blood Count 9.3 K/mm3 (4.8-10.8)
[2023-01-04 17:27] LABS: Alanine Aminotransferase 20 U/L (12-78); Albumin Level 4.5 g/dl (3.5-5.0); Albumin/Globulin Ratio 1.8 (1.1-1.8); Alkaline Phosphatase 52 U/L (38-126); Aspartate Amino Transferase 25 U/L (14-36); Bilirubin,Total 0.3 mg/dl (0.2-1.3); Blood Urea Nitrogen 14 mg/dl (7-17); Calcium 9.2 mg/dl (8.4-10.2); Carbon Dioxide 28 mmol/L (22.0-30.0); Chloride 101 mmol/L (98-107); Estimated Glomerular Filt Rate 67 ml/min (>60); GFR (African American) 82 ML/MIN (>60); Globulin 2.5 g/dL (1.3-3.2); Glucose 75 mg/dl (74-100); Sodium 137 mmol/L (136-145)
== END ==
PROVIDERS: PCP Internal Medicine; Visit Provider Otolaryngology
DX: Z01.818 Encounter for other preprocedural examination (principal); H93.8X2 Other specified disorders of left ear
CPT/HCPCS: 36415; 80053; 85025

== ENCOUNTER 2023-01-11 07:59 | Day surgery (SDC) | payer OTHER, SELFPAY ==
[2023-01-06 10:05] VITALS: BMI 28.1
[2023-01-11 08:12] VITALS: BP 122/75; PULSE 68; RESP 18; TEMP 36.8; O2SAT 99
--- NOTE | 2023-01-11 08:40 | EXP.ANES.CKL ---
[facility] Disclaimer: The information contained in this section may have been updated after the patient was seen, as this information can be updated by other users. Medical History Chest pain Dyspnea Family history of heart disease Migraine Tobacco dependence syndrome Surgical History History of appendectomy History of section History of cholecystectomy History of hysterectomy Family History Other Family history of cancer Family history of hypertension Social History Smoking Status: Current every day smoker tobacco type: cigarettes packs per day: 2 second hand exposure: Yes alcohol intake: never substance use type: former substance user and amphetamines current occupational status: employed Travel in the last 8 weeks: None housing: house current occupational exposures/hazards: No [facility] Anesthesia Checklist Patient Identification Patient Identification: Arm Band and Verbal (Name & ) Structural Data Admitted From: Home Planned Operative Procedure/s: Excision lesion of ear Consent for Planned Operative Procedure(s) Verified: Yes NPO Status Verified Time NPO: 00:00 Additional verifications Anesthesia Reactions: No Hx Blood Transfusions: No Airway Assessment C-Spine Mobility Assessed: Yes TMJ Mobility Assessed: Yes Dentition: Poor Dentition Neurological Assessment Level of Consciousness: Awake Hx Seizures: No Numbness or tingling in extremities: No Anesthesia Plan Anesthesia Risk discussed: Yes Anesthesia Plan: Verified ASA Class: II Anesthesia Type: MAC
[2023-01-11 10:21] VITALS: BP 98/62; PULSE 64; RESP 16; TEMP 36.6; O2SAT 100
--- NOTE | 2023-01-11 10:23 | P.OP_ITS ---
Date of procedure: 01/11/23 Pre-op Diagnosis:: Left earlobe mass Post-op Diagnosis:: Left earlobe epidermoid cyst?1.3 cm Procedure performed:: Wide local excision of left ear lobe cyst with complex closure Surgeon:: Salvador Phoenix III, MD CHOCOLATE MAKER:: Darren Celeste Anesthesia: MAC Estimated blood loss (mL): 5 Operative findings:: Cystic structure in left earlobe that extended from anterior to posterior with direct adherence to the overlying epidermal layers Operative note:: Patient was brought to the operating room and given IV sedation along with monitoring per anesthesia. The left ear was prepared and draped in usual f ashion. I then preinjected 1% lidocaine with epinephrine into the cystic structure that was densely adherent to the earlobe skin anteriorly and posteriorly. I marked out an ellipse of skin and anteriorly and remove this along with the cystic mass. The mass was carefully dissected free from the anterior and lateral attachments until I was able to isolate the posterior connection to the skin. Small ellipse of skin was removed from posteriorly in the earlobe. This did get give us a through and through laceration with a thorough removal of the cystic structure. Initially it measured approximate 1.3 cm. It was ruptured and reduced in size prior to removal. The wound was then irrigated with sterile water solution. I closed the anterior portion incision with a running vertical mattress of 5-0 fast-absorbing chromic. The posterior portion of the incision was closed with an interrupted suture of the same variety. Topical Dermabond was applied anteriorly and posteriorly. The specimen was inspected grossly but also sent for pathologic evaluation. Condition: stable Disposition: PACU Complications:: none
[2023-01-11 10:31] VITALS: BP 114/73; PULSE 56; RESP 16; O2SAT 99
[2023-01-11 10:41] VITALS: BP 105/64; PULSE 55; RESP 16; TEMP 36.6; O2SAT 100
[2023-01-11 12:39] VITALS: TEMP 43
== END 2023-01-11 10:42 | disposition home or self-care (01) ==
PROVIDERS: PCP Internal Medicine; Visit Provider Otolaryngology
PROC: (CPT 11442; principal; 2023-01-11 09:30)
DX: L72.0 Epidermal cyst (principal); F17.210 Nicotine dependence, cigarettes, uncomplicated; Z79.899 Other long term (current) drug therapy
CPT/HCPCS: 11442; 13151; J2405

== ENCOUNTER → 2023-03-17 07:27 | Outpatient (CLI) | payer OTHER, SELFPAY ==
[2023-03-17 07:32] LABS: Microscopic, Urine URINE MICROSCOPIC (MICROSCOPIC)
[2023-03-17 07:57] LABS: Appearance,Urine SL CLOUDY (Clear); Bilirubin,Urine Negative (Negative); Blood, Urine 2+ (Negative); Color,Urine YELLOW (Yellow); Glucose,Urine (UA) Negative (Negative); Ketones,Urine Negative (Negative); Leukocyte Esterase,Urine 2+ (Negative); Nitrate,Urine Negative (Negative); PH,Urine 5.5 (5.0-8.5); Protein,Urine Negative (Negative); Specific Gravity, Urine 1.025 (1.005-1.030); Urobilinogen,Urine 0.2 EU/dl (0.2)
[2023-03-17 08:04] LABS: Basophils # 0.1 K/mm3 (0-0.2); Basophils % 1.1 % (0.1-2.0); Eosinophils # 0.2 K/mm3 (0.0-0.4); Eosinophils % 2.6 % (0.1-12.0); Hematocrit 40.3 % (37.0-47.0); Hemoglobin 12.9 g/dL (12.2-16.2); Lymphocytes # 2.9 K/mm3 (0.7-4.5); Lymphocytes % 45.4 % (10-50); Mean Corpuscular HGB Conc 32.1 g/dL (31.8-35.4); Mean Corpuscular Hemoglobin 28.6 pg (27.0-31.2); Mean Corpuscular Volume 89.3 fl (81-99); Mean Platelet Volume 8.8 fl (7.4-10.4); Monocytes # 0.5 K/mm3 (0.1-1.0); Monocytes % 7.2 % (1.7-9.3); Neutrophils # 2.8 K/mm3 (1.8-7.8); Neutrophils % 43.7 % (37.0-80.0); Platelet Count 252 K/mm3 (142-424); Red Blood Count 4.51 M/mm3 (4.20-5.40); White Blood Count 6.4 K/mm3 (4.8-10.8)
[2023-03-17 08:16] LABS: Bacteria,Urine 2+ /lpf; RBC,Urine Occasional #/hpf (0-3); Trichomonas,Urine 2+ /lpf
[2023-03-17 08:52] LABS: Alanine Aminotransferase 25 U/L (12-78); Albumin Level 4.1 g/dl (3.5-5.0); Albumin/Globulin Ratio 1.6 (1.1-1.8); Alkaline Phosphatase 55 U/L (38-126); Anion Gap 12.9 mEq/L (5-15); Aspartate Amino Transferase 31 U/L (14-36); Bilirubin,Total 0.2 mg/dl (0.2-1.3); Blood Urea Nitrogen 11 mg/dl (7-17); Calcium 8.7 mg/dl (8.4-10.2); Carbon Dioxide 28 mmol/L (22.0-30.0); Chloride 105 mmol/L (98-107); Estimated Glomerular Filt Rate 90 ml/min (>60); GFR (African American) 109 ML/MIN (>60); Globulin 2.6 g/dL (1.3-3.2); Glucose 106 mg/dl (74-100); Potassium 3.9 mmoL/L (3.5-5.1); Sodium 142 mmol/L (136-145); Total Protein,Serum 6.7 g/dl (6.3-8.2)
[2023-03-17 09:30] LABS: Thyroid Stimulating Hormone 2.82 uIU/mL (0.465-4.68)
[2023-03-17 13:57] LABS: T4 (Thyroxine) 7.5 ug/dl (5.53-11.0)
== END ==
PROVIDERS: PCP Internal Medicine; Visit Provider Internal Medicine
DX: I10 Essential (primary) hypertension (principal); R60.0 Localized edema
CPT/HCPCS: 36415; 80053; 81001; 84436; 84443; 85025; 87086

== ENCOUNTER → 2023-04-07 07:56 | Outpatient (CLI) | payer OTHER, SELFPAY | PROVIDERS: PCP Internal Medicine; Visit Provider Internal Medicine | DX: R06.09 Other forms of dyspnea (principal); R60.0 Localized edema; Z82.49 Family history of ischemic heart disease and other diseases of the circulatory system | CPT/HCPCS: 93306 ==

== ENCOUNTER → 2023-06-02 15:07 | Outpatient (CLI) | payer SELFPAY ==
[2023-06-02 20:14] VITALS: BMI 27.3
== END ==
PROVIDERS: Visit Provider Nurse Practitioner
DX: Z11.1 Encounter for screening for respiratory tuberculosis (principal)
CPT/HCPCS: 86580

== ENCOUNTER → 2023-06-15 12:00 | Outpatient (CLI) | payer OTHER, SELFPAY ==
[2023-06-15 20:18] LABS: Amphetamine/Metha Screen,Urine Positive ng/ml (<1000)
[2023-06-15 20:19] LABS: Barbiturates Screen,Urine Negative ng/ml (<200)
[2023-06-15 20:20] LABS: Benzodiazepines Screen,Urine Negative ng/ml (<200); Cannabinoid Screen,Urine Negative ng/ml (<50)
[2023-06-15 20:21] LABS: Cocaine Screen,Urine Negative ng/ml (<300); Methadone Screen,Urine Negative ng/ml (<300)
[2023-06-15 20:22] LABS: Opiate Screen,Urine Negative ng/ml (<300)
[2023-06-15 20:23] LABS: Phencyclidine Screen,Urine Negative ng/ml (<25)
== END ==
PROVIDERS: PCP Emergency Medicine; Visit Provider Emergency Medicine
DX: Z79.899 Other long term (current) drug therapy (principal)
CPT/HCPCS: 80305

== ENCOUNTER → 2023-06-16 13:34 | Outpatient (CLI) | payer OTHER, SELFPAY ==
--- NOTE | 2023-06-16 13:39 | XR_ITS ---
FINAL REPORT TECHNIQUE: 5 views CLINICAL HISTORY: neck pain COMPARISON: None FINDINGS: There is no fracture present. There is no malalignment. Mild degenerative changes present in the mid and lower cervical spine. IMPRESSION: Mild degenerative change mid and lower cervical spine, no acute process. Reviewed, Interpreted and Dictated by Kayden Rizvi III, MD Transcribed by Christy Abel Authenticated and . [facility]
== END ==
PROVIDERS: PCP Emergency Medicine; Visit Provider Emergency Medicine
DX: M54.2 Cervicalgia (principal)
CPT/HCPCS: 72050

== ENCOUNTER → 2023-07-01 07:27 | Outpatient (CLI) | payer OTHER, SELFPAY ==
--- NOTE | 2023-07-01 07:27 | MR_ITS ---
FINAL REPORT TECHNIQUE: Multiplanar and multisequence imaging of the cervical spine was obtained. CLINICAL HISTORY: neck pain. unable to tilt head to the left. headache. right arm numbness and tingling COMPARISON: None FINDINGS: Alignment is normal. Vertebral body height is preserved. Signal intensity within the substance of the spinal cord is normal. There is no bone marrow edema or pathologic marrow replacement. No acute paraspinal abnormality. C2/3: There is no focal disc herniation, central stenosis or neural foraminal narrowing. C3/4: There is no focal disc herniation, central stenosis or neural foraminal narrowing. C4/5: There is no focal disc herniation, central stenosis or neural foraminal narrowing. C5/6: Annular disc bulge with mild degenerative endplate change and facet osteoarthropathy. No central canal stenosis.. Minimal bilateral foraminal narrowing.. C6/7: Annular disc bulge with mild degenerative endplate change and facet osteoarthropathy. No central canal stenosis. Mild bilateral foraminal narrowing. C7/T1: There is no focal disc herniation, central stenosis or neural foraminal narrowing. IMPRESSION: Mild degenerative disc disease at C5-6 and C6-7 as above. Authenticated and [facility]
== END ==
PROVIDERS: PCP Emergency Medicine; Visit Provider Emergency Medicine
DX: M54.2 Cervicalgia (principal)
CPT/HCPCS: 72141; 76376

== ENCOUNTER → 2023-08-11 23:34 | Outpatient (CLI) | payer OTHER, SELFPAY ==
[2023-08-11 22:58] LABS: Amphetamine/Metha Screen,Urine Positive ng/ml (<1000)
[2023-08-11 22:59] LABS: Barbiturates Screen,Urine Negative ng/ml (<200)
[2023-08-11 23:03] LABS: Benzodiazepines Screen,Urine Negative ng/ml (<200)
[2023-08-11 23:04] LABS: Cannabinoid Screen,Urine Negative ng/ml (<50); Cocaine Screen,Urine Negative ng/ml (<300)
[2023-08-11 23:05] LABS: Methadone Screen,Urine Negative ng/ml (<300)
[2023-08-11 23:06] LABS: Opiate Screen,Urine Negative ng/ml (<300); Phencyclidine Screen,Urine Negative ng/ml (<25)
== END ==
PROVIDERS: PCP Emergency Medicine; Visit Provider Emergency Medicine
DX: Z79.899 Other long term (current) drug therapy (principal)
CPT/HCPCS: 80305

== ENCOUNTER 2023-08-25 09:49 | Emergency (ER) | payer OTHER, SELFPAY ==
[2023-08-25 09:49] VITALS: BP 99/72; PULSE 77; RESP 16; TEMP 37.2; O2SAT 100; BMI 27.0
--- NOTE | 2023-08-25 10:08 | EXP.UTC ---
Discharge Plan Disposition Patient Disposition: Home, Self-Care Condition: Good Prescriptions Prescriptions: New benzonatate [benzonatate] 100 mg capsule 100 mg PO TIDP PRN (Reason: Cough) Qty: 30 0RF azithromycin [Zithromax] 250 mg tablet 250 mg PO UD DOSE PK Qty: 6 0RF Rx Instructions: Take two (2) tablets today, then one (1) tablet days #2 thru #5 methylprednisolone 4 mg Tablets,Dose Pack 4 mg PO DIRECTED Qty: 21 0RF No Action estradiol 1 mg tablet 1 mg PO DAILY Ubrelvy 50 mg tablet 50 mg PO ONCE PRN buprenorphine-naloxone 8-2 mg tablet, sublingual 1 tab sublingual DAILY hydrochlorothiazide 25 mg tablet 25 mg PO DAILY Vraylar 1.5 mg capsule 1.5 mg PO DAILY Qty: 30 2RF gabapentin 600 mg tablet 600 mg PO BID Qty: 60 1RF dextroamphetamine-amphetamine [Adderall] 20 mg tablet 20 mg PO BID Qty: 60 0RF Rx Instructions: administer doses at least 4-6 hours apart bisoprolol fumarate 5 mg tablet 5 mg PO DAILY Qty: 90 0RF losartan 50 mg tablet 50 mg PO DAILY Qty: 90 0RF trazodone 100 mg tablet 100 mg PO HS PRN (Reason: Sleep) Qty: 90 0RF Referrals Follow up/Referrals: Oniel Bhatt MD [Primary Care Provider] - See instructions Activity Restrictions/Add. Instructions Additional Instructions/Restrictions: Drink plenty of fluids. Take tylenol or ibuprofen for pain or fever. Take the medications as directed. Follow up with your regular doctor. GO TO THE ER FOR ANY WORSENING SYMPTOMS Clinical Impressions Clinical Impression: Bronchitis, Sinusitis Stand Alone Forms Stand Alone Forms: Work/School Release Instructions Patient Instructions: Sinusitis, DI for Sinusitis Discharge ED Provider: Brad Warren [facility] [place] HPI General Stated complaint: FEVER, HEADACHE, BODY ACHES Mode of Arrival: Ambulatory Source of Information: Patient Limitations: No Limitations Time Seen by Provider: 08/25/23 10:08 Description of Symptoms (Recalled from Triage Doc. by RN): c/o fever 101.8, body aches, MUSTAFA since yesterday HEENT Symptoms (Recalled from RN notes): Yes Resp Symptoms (Recalled from RN notes): No Skin Symptoms (Recalled from RN notes): No MS Symptoms (Recalled from RN notes): No Functional Status (Recalled from RN notes): wnl History of Present Illness Provider Complaint: She states that for the past 4 days she has had body aches, chills, low grade fever and malaise. Related Data Home Medications Medication Instructions Recorded Confirmed buprenorphine 8 mg-naloxone 2 mg 1 tab sublingual DAILY 01/25/23 08/11/23 sublingual tablet estradiol 1 mg tablet 1 mg PO DAILY 01/25/23 08/11/23 ubrogepant 50 mg tablet (Ubrelvy) 50 mg PO ONCE PRN 01/25/23 08/11/23 hydrochlorothiazide 25 mg tablet 25 mg PO DAILY 08/11/23 08/11/23 Previous Rx's Medication Instructions Recorded bisoprolol fumarate 5 mg tablet 5 mg PO DAILY BP #90 tabs 07/30/23 losartan 50 mg tablet 50 mg PO DAILY bp #90 tabs 07/30/23 trazodone 100 mg tablet 100 mg PO HS PRN Sleep #90 tabs 07/30/23 cariprazine 1.5 mg capsule 1.5 mg PO DAILY #30 caps 08/11/23 (Vraylar) dextroamphetamine-amphetamine 20 20 mg PO BID #60 tabs 08/11/23 mg tablet (Adderall) gabapentin 600 mg tablet 600 mg PO BID #60 tabs 08/11/23 azithromycin 250 mg tablet 250 mg PO UD DOSE PK #6 tabs 08/25/23 (Zithromax) benzonatate 100 mg capsule 100 mg PO TIDP PRN Cough #30 caps 08/25/23 methylprednisolone 4 mg tablets in 4 mg PO DIRECTED #21 tabs 08/25/23 a dose pack Allergies Allergy/AdvReac Type Severity Reaction Status Date / Time Penicillins [PENICILLINS] Allergy Unknown Verified 08/11/23 15:49 buspirone [From BuSpar] Allergy Verified 08/11/23 15:49 Worker's Comp Is this a Worker's Comp case?: No [facility] Disclaimer: The information contained in this section may have been updated after the patient was seen, as this information can be updated by other users
[2023-08-25 11:19] LABS: Influenza A, PCR Not Detected (NotDetected); Influenza B, PCR Not Detected (NotDetected)
[2023-08-25 12:12] LABS: Coronavirus 19, PCR Detected (NotDetected)
[2023-08-25 12:20] VITALS: BP 99/72; PULSE 77; RESP 18; TEMP 37.2; O2SAT 100
== END 2023-08-25 12:20 | disposition home or self-care (01) ==
PROVIDERS: Emergency Provider Nurse Practitioner Family; PCP Emergency Medicine
DX: U07.1 COVID-19 (principal); R50.9 Fever, unspecified; R51.9 Headache, unspecified; J20.9 Acute bronchitis, unspecified; J01.90 Acute sinusitis, unspecified; R53.81 Other malaise; F17.210 Nicotine dependence, cigarettes, uncomplicated
CPT/HCPCS: 87636; 99212; 99214; G0463

== ENCOUNTER 2023-10-06 06:59 | Outpatient (CLI) | payer OTHER, SELFPAY ==
[2023-10-06 19:57] LABS: Cholesterol 288 mg/dl (140-200); Triglycerides 334 mg/dl (30-150); VLDL Cholesterol 67 mg/dL (0-40)
[2023-10-06 19:58] LABS: Chol/HDL Ratio 8.5 (1-3.5); HDL Cholesterol 34 mg/dl (40-60)
[2023-10-06 20:08] LABS: Direct LDL Cholesterol 160.03 mg/dL (100-129)
[2023-10-06 22:06] LABS: Creatinine,Urine Random 41 mg/dL (Not Estab.); Microalbumin < 6.000 mg/L (0-16.7)
[2023-10-06 22:58] LABS: Amphetamine/Metha Screen,Urine Positive ng/ml (<1000); Barbiturates Screen,Urine Negative ng/ml (<200); Benzodiazepines Screen,Urine Negative ng/ml (<200); Cannabinoid Screen,Urine Negative ng/ml (<50); Cocaine Screen,Urine Negative ng/ml (<300); Methadone Screen,Urine Negative ng/ml (<300); Opiate Screen,Urine Negative ng/ml (<300); Phencyclidine Screen,Urine Negative ng/ml (<25)
== END 2023-10-06 23:59 ==
LOC: LAB.DROPOF 10-07 07:00
PROVIDERS: PCP Internal Medicine; Visit Provider Internal Medicine
DX: Z79.899 Other long term (current) drug therapy (principal); E66.3 Overweight; Z68.28 Body mass index [BMI] 28.0-28.9, adult
CPT/HCPCS: 80061; 80307; 82043; 82570

== ENCOUNTER 2023-11-09 08:53 | Outpatient (CLI) | payer OTHER, SELFPAY ==
[2023-11-08 15:59] VITALS: BMI 27.8
[2023-11-09] VITALS (7 sets, daily range): BP systolic 98–128; BP diastolic 55–87; PULSE 59–77; RESP 16–18; O2SAT 99–100
--- NOTE | 2023-11-09 08:53 | CT_ITS ---
APPROVED REPORT Leaf Stripper: CLINICAL INDICATION Chest Pain TECHNIQUE Image Acquisition: A 128 slice MDCT scanner (StackIQa View) was used for data acquisition. A noncontrast coronary calcium scan was performed. A CT attenuation threshold of 130 Hounsfield units (HU) was used for the detection of calcium in contiguous voxels of 1 sq mm in area to be counted as individual lesions. Bolus tracking in the ascending aorta with a threshold of 180 HU was performed. Immediately afterwards, ECG synchronized cardiac CT was then performed from the cardiac base to apex using retrospective gating with ECG tube current modulation. A total of 85 mL of Isovue 370 mg/mL contrast medium was administered at 5 mL/sec followed by a saline flush using a biphasic injection protocol. A tube voltage of 120 KVp was used. The patient received the following medications prior to the cardiac CT. 75 mg of oral metoprolol 15 mg of oral ivabradine 0.8 mg of sublingual nitroglycerin The average heart rate at the time of acquisition was 59 bpm and regular. Image Reconstruction Transaxial images were reconstructed at 0.67 mm slide thickness. Data was reviewed interactively on an advanced workstation capable of 2 and 3-dimensional displays in all conventional reconstruction formats, including multiplanar reformations, maximum intensity projections, curved multiplanar reformations, and volume rendered reconstructions. When applicable, selected routine images describing the relevant coronary anatomy and pathology were saved and sent to PACS. Complications None Technical Quality Overall image quality was good. Coronary artery opacification was adequate. Total DLP (Dose-Length Product) is 1497.2 mGy-cm. The reported value represents the total of one or more individual components during the CT acquisition of this date and at this time, and as such, the same value may appear in more than one CT report depending on the interpreting/reporting physicians. COMPARISON None FINDINGS CT Coronary Calcium Scoring LMA (Left Main Artery) = 0 LAD (Left Anterior Descending) = 0 LCX (Left Coronary Circumflex) = 0 RCA (Right Coronary Artery) = 0 Total Calcium Score = 0 using the AJ-130 method. The interpretation of the calcium heart score is based on the following continuum*: 0 = no calcified plaque detected (risk of coronary artery disease is very low ??? less than 5%) 1-10 = calcium detected in extremely minimal levels (risk of coronary diseases is still low ??? less than 10%) 11-100 = mild levels of plaque detected with certainty (mild or minimal narrowing of heart arteries is likely) 101-400 = definite,at least moderate levels of plaque detected (relatively high risk of a heart attack within 3-5 years) >401-999 = extensive levels of plaque detected (high risk of heart attack, high levels of vascular disease are present, high likelihood of at least one significant coronary narrowing) *The calcium heart score quantifies the burden of coronary calcification/plaque in the coronary arteries. The calcium heart score is not able to evaluate the presence or burden of non-calcified (i.e. soft) plaque. There is no identifiable calcification in the aortic valve, mitral annulus or mitral valve, pericardium, or myocardium. Coronary CT Angiography The coronary arterial system is right dominant. Quantitative Stenosis Grading: Left Main (LM): The left main originates normally from the left sinus of Valsalva. The LM bifurcates into the left anterior descending artery and left circumflex artery. The LM is patent with no evidence of atherosclerosis. Left Anterior Descending (LAD) and Diagonal Branches: The LAD gives off 2 diagonal branches. The LAD and its branches are patent with no evidence of atherosclerosis. There is no evidence of LAD bridge. Left Circumflex (LCX) and Obtuse Marginals (OM): The LCX gives off 1 Obtuse Marginal (OM) branch. The LCX and its branches are patent with no evidence of atherosclerosis. Right Coronary Artery (RCA): The RCA originates normally from the right sinus of Valsalva. The RCA gives off a posterior descending artery (PDA) and posterolateral (PL) branches. The RCA and its branches are patent with no evidence of atherosclerosis. Non-Coronary Cardiac Findings: Analysis of the left ventricular (LV) structure and function was performed after 3-D reconstruction of the LV from axial images, with user-corrected automatic contouring for assessment of LV volumes and user-defined reconstruction from oblique planes for measurement of 3-D cardiac structure and function. LVEDV: 150 mL LVESV: 61 mL SV: 89 mL LVEF: 59% -The left ventricle is normal in size with normal left ventricular systolic function. -There is no left atrial appendage filling defect. Two right pulmonary veins and two left pulmonary veins drain normally into the left atrium. -No pericardial thickening or calcification. -Central and branch pulmonary arteries in the [id number] are unremarkable. -Thoracic aorta within the visualized thoracic aortic-branches in the [id number] is unremarkable. Extracardiac Structures No significant extra-cardiac findings. Note, however, that this study is focused on the cardiac findings. IMPRESSION -No coronary calcification with an Agatston score = 0 using the AJ-130 method. -No evidence of significant flow-limiting atherosclerosis of the coronary arteries. -CAD-RADS 0. Management recommendations per ACC/AHA guidelines*, as clinically appropriate. *Recommendations: CAD RADS 0: Reassurance. Consider non-atherosclerotic causes of chest pain. CAD RADS 1: Consider non-atherosclerotic causes of chest pain. Consider preventive therapy and risk factor modification. CAD RADS 2: Consider non-atherosclerotic causes of chest pain. Consider preventive therapy and risk factor modification, particularly for patients with nonobstructive plaque in multiple segments. CAD RADS 3: Consider further functional testing. Consider symptom-guided anti-ischemic and preventive pharmacotherapy as well as risk factor modification per published guideline statements. CAD RADS 4A: Consider further functional testing or invasive coronary angiography with revascularization per published guideline statements. Consider symptom-guided anti-ischemic and preventive pharmacotherapy as well as risk factor modification per published guideline statements. CAD RADS 4B: Invasive coronary angiography recommended with revascularization per published guideline statements. Consider symptom-guided anti-ischemic and preventive pharmacotherapy as well as risk factor modification per published guideline statements. CAD RADS 5: Consider invasive angiography and/or viability assessment with revascularization per published guideline statements. Consider symptom-guided anti-ischemic and preventive pharmacotherapy as well as risk factor modification per published guideline statements. CRITICAL RESULT None COMMUNICATION Per this written report The coronary and cardiac findings of this CCTA were reviewed, reported, and signed by Braulio Coffman MD (Equity [employer]) Conclusion Electronically signed by : Geeta Coffman MD 11/11/2023 13:03:55
[2023-11-09] MEDS: METOPROLOL TARTRATE 25MG TABLET 75 MG (09:20)
[2023-11-09] MEDS: IVABRADINE HCL 7.5MG TABLET *IVABRADINE+METOPROLOL REGIMINE 15 MG PO (09:24)
[2023-11-09 09:38] LABS: Anion Gap 8.5 mEq/L (5-15); Blood Urea Nitrogen 12 mg/dl (7-17); Calcium 9.5 mg/dl (8.4-10.2); Carbon Dioxide 34 mmol/L (22.0-30.0); Chloride 102 mmol/L (98-107); Creatinine Clearance Estimated 104 mL/min (50-200); Estimated Glomerular Filt Rate 77 ml/min (>60); GFR (African American) 93 ML/MIN (>60); Glucose 79 mg/dl (74-100); Potassium 3.5 mmoL/L (3.5-5.1); Sodium 141 mmol/L (136-145)
[2023-11-09] MEDS: IOPAMIDOL-370 (76%);100ML BOTTLE 85 ML IV (10:29)
[2023-11-09] MEDS: 0.9 % SODIUM CHLORIDE 50 ML VIAL IV (10:29)
[2023-11-09] MEDS: SODIUM CHLORIDE 0.9% 10ML SYR (RAD ONLY) 10 ML IV (10:29)
== END 2023-11-09 11:00 | disposition home or self-care (01) ==
PROVIDERS: PCP Internal Medicine; Visit Provider Nurse Practitioner Family
DX: R07.9 Chest pain, unspecified (principal); F17.200 Nicotine dependence, unspecified, uncomplicated; Z82.49 Family history of ischemic heart disease and other diseases of the circulatory system
CPT/HCPCS: 75571; 75574; 80048; Q9967

== ENCOUNTER 2023-11-25 09:53 | Outpatient (CLI) | payer OTHER, SELFPAY ==
--- NOTE | 2023-11-25 09:56 | XR_ITS ---
FINAL REPORT CLINICAL HISTORY: left wrist pain COMPARISON: None FINDINGS: LEFT WRIST Three views demonstrate no acute fracture or dislocation. The visualized joint spaces are normally aligned. The soft tissues are unremarkable. IMPRESSION: No acute bony abnormality. Reviewed, Interpreted and Dictated by Johnathon Li MD Transcribed by Bella Camacho Authenticated and [facility]
--- NOTE | 2023-11-25 09:56 | XR_ITS ---
FINAL REPORT CLINICAL HISTORY: right wrist pain COMPARISON: None FINDINGS: RIGHT WRIST Three views demonstrate no acute fracture or dislocation. The visualized joint spaces are normally aligned. The soft tissues are unremarkable. IMPRESSION: No acute bony abnormality. Reviewed, Interpreted and Dictated by Johnathon Li MD Transcribed by Bella Camacho Authenticated and [facility]
== END 2023-11-25 23:59 ==
LOC: RAD 09:54
PROVIDERS: PCP Internal Medicine; Visit Provider Orthopaedic Surgery
DX: M25.531 Pain in right wrist (principal); M25.532 Pain in left wrist
CPT/HCPCS: 73110

== ENCOUNTER 2023-11-26 15:38 | Emergency (ER) | payer OTHER, SELFPAY ==
[2023-11-26 16:40] VITALS: BP 139/92; PULSE 82; RESP 18; TEMP 36.8; O2SAT 100; BMI 26.9
--- NOTE | 2023-11-26 16:51 | EXP.UTC ---
Discharge Plan Disposition Patient Disposition: Home, Self-Care Condition: Good Prescriptions Prescriptions: New azithromycin [Zithromax] 250 mg tablet 250 mg PO UD DOSE PK Qty: 6 0RF Rx Instructions: Take two (2) tablets today, then one (1) tablet days #2 thru #5 benzonatate [benzonatate] 100 mg capsule 100 mg PO TIDP PRN (Reason: Cough) Qty: 30 0RF methylprednisolone 4 mg Tablets,Dose Pack 4 mg PO DIRECTED 6 Days Qty: 21 0RF Rx Instructions: Take 1 pack as directed for 6 days No Action dextroamphetamine-amphetamine [Adderall] 20 mg tablet 20 mg PO BID Qty: 60 0RF Rx Instructions: administer doses at least 4-6 hours apart gabapentin 600 mg tablet 600 mg PO TID 30 Days Qty: 90 1RF zolpidem 10 mg tablet 10 mg PO HS 30 Days Qty: 30 1RF losartan 50 mg tablet 50 mg PO DAILY Qty: 90 0RF estradiol 1 mg tablet 1 mg PO DAILY Qty: 30 2RF hydrochlorothiazide 25 mg tablet 25 mg PO DAILY Qty: 30 2RF bisoprolol fumarate 5 mg tablet 5 mg PO DAILY Qty: 90 0RF atorvastatin 40 mg tablet 40 mg PO DAILY buprenorphine-naloxone 8-2 mg tablet, sublingual 1 tab SUBLINGUAL DAILY Patient Comments: DISSOLVE 1 & 3/4 TABLET UNDER THE TONGUE EVERY DAY Referrals Follow up/Referrals: Vazquez Quintanilla DO [Primary Care Provider] - See instructions Activity Restrictions/Add. Instructions Additional Instructions/Restrictions: Drink plenty of fluids. Take tylenol or ibuprofen for pain or fever. Take the medications as directed. Follow up with your regular doctor. GO TO THE ER FOR ANY WORSENING SYMPTOMS Clinical Impressions Clinical Impression: Sinusitis Stand Alone Forms Stand Alone Forms: Work/School Release Instructions Patient Instructions: Sinusitis, DI for Sinusitis Discharge ED Provider: Brad [place] [facility] [place] General Stated complaint: body aches, sore throat, congestion Time Seen by Provider: 11/26/23 16:50 History of Present Illness Provider Complaint: She states that for the past 2 days she has had chills, body aches, malaise, cough, and sinus congestion. Related Data Home Medications Medication Instructions Recorded Confirmed atorvastatin 40 mg tablet 40 mg PO DAILY 11/26/23 11/26/23 buprenorphine 8 mg-naloxone 2 mg 1 tab sublingual DAILY 11/26/23 11/26/23 sublingual tablet Previous Rx's Medication Instructions Recorded losartan 50 mg tablet 50 mg PO DAILY bp #90 tabs 07/30/23 estradiol 1 mg tablet 1 mg PO DAILY #30 tabs 09/28/23 hydrochlorothiazide 25 mg tablet 25 mg PO DAILY #30 tabs 09/28/23 bisoprolol fumarate 5 mg tablet 5 mg PO DAILY BP #90 tabs 10/29/23 dextroamphetamine-amphetamine 20 20 mg PO BID #60 tabs 11/03/23 mg tablet (Adderall) gabapentin 600 mg tablet 600 mg PO TID 30 days #90 tabs 11/03/23 zolpidem 10 mg tablet 10 mg PO HS 30 days #30 tabs 11/03/23 azithromycin 250 mg tablet 250 mg PO UD DOSE PK #6 tabs 11/26/23 (Zithromax) benzonatate 100 mg capsule 100 mg PO TIDP PRN Cough #30 caps 11/26/23 methylprednisolone 4 mg tablets in 4 mg PO DIRECTED 6 days #21 tabs 11/26/23 a dose pack Allergies Allergy/AdvReac Type Severity Reaction Status Date / Time Penicillins [PENICILLINS] Allergy Unknown Verified 11/25/23 10:27 buspirone [From BuSpar] Allergy Verified 11/25/23 10:27 [facility] Disclaimer: The information contained in this section may have been updated after the patient was seen, as this information can be updated by other users. Medical History Chest pain COPD (chronic obstructive pulmonary disease) Dyspnea Epidermal cyst of ear This area is healed well. Family history of heart disease High blood pressure Patient's blood pressure has been well-controlled on the current regimen. Blood pressure today is 110/90. It is running about this at home. She denies any lightheadedness no dizziness. She is tolerating this well. History of anemia HLD (hyperlipidemia) The atorvastatin was increased to 40 mg at cardiology. Will follow-up with a lipid panel at their convenience. Kidney stone Migraine Patient indicates that the uprogepant is working well. Additionally the gabapentin seems to help her headaches as well. Will continue those. Tobacco dependence syndrome Urinary tract infection Surgical History History of appendectomy History of bilateral carpal tunnel release History of section History of cholecystectomy History of hysterectomy Family History Father Family history of myocardial infarction Other Family history of cancer Family history of hypertension Social History Smoking Status: Current every day smoker tobacco type: cigarettes packs per day: 2 second hand exposure: Yes alcohol intake: current substance use type: former substance user and amphetamines current occupational status: employed Travel in the last 8 weeks: None housing: house current occupational exposures/hazards: No ROS Obtained: Yes All systems reviewed & no additional complaints except as documented Constitutional Constitutional: Reports chills and Reports fever(s) Eyes Eyes: Denies eye discharge ENT Ears, Nose, Mouth, and Throat: Reports as per HPI Cardiovascular Cardiovascular: Denies chest pain Respiratory Respiratory: Denies chest congestion and Reports cough Gastrointestinal Gastrointestingal: Reports nausea; Denies abdominal pain, constipation, cramping, diarrhea or vomiting Musculoskeletal Musculoskeletal: Denies arthralgias Integumentary/Breasts Skin/Breast: Denies rash Neurologic Neurologic: Denies paresthesias Physical Exam General General appearance: alert and in no apparent distress Eye Eye exam: Present normal appearance, PERRL and EOMI ENT ENT exam: Present mucous membranes moist and normal external ear exam Expanded ENT Exam External ear exam: Present normal external inspection TM/Canal exam: Bilateral TM: erythema and bulging Nose exam: Absent sinus tenderness Nasal speculum exam: Bilateral: normal Mouth exam: Present normal external inspection; Absent drooling Teeth exam: Present normal inspection Throat exam: Present tonsillar erythema and tonsillomegaly Neck Neck exam: Present normal inspection, full ROM and trachea midline; Absent tenderness, lymphadenopathy or thyromegaly Chest Chest inspection: Present normal inspection and symmetric chest wall rise; Absent tenderness or rash Respiratory Respiratory exam: Present normal lung sounds bilaterally; Absent respiratory distress, wheezes, stridor or accessory muscle use Cardiovascular Cardiovascular exam: Present regular rate, normal rhythm and normal heart sounds Abdominal Exam Abdominal exam: Present soft; Absent distention, tenderness, guarding, rebound or rigidity Extremities Exam Extremities exam: Present normal inspection, full ROM and normal capillary refill; Absent tenderness or calf tenderness Back Exam Back exam: Present normal inspection and full ROM; Absent tenderness Neurological Exam Neurological exam: Present alert and oriented X3 Psychiatric Psychiatric exam: Present normal affect and normal mood Skin Skin exam: Present warm, dry, intact and normal color Lymphatic Lymphatic Findings: no adenopathy Medical Decision Making Medical Records Medical records reviewed: No I reviewed the patient's medical records. Jeffry Inquiry Pt receiving controlled substance: No Lab Data Lab results reviewed: Yes I reviewed the patient's lab results. Orders (Tests/Meds): ORDERS Category Date Time Status Rapid PCR Covid and Flu A/B Stat Lab 11/26/23 16:43 Ordered
[2023-11-26 16:55] LABS: Influenza A, PCR Not Detected (NotDetected); Influenza B, PCR Not Detected (NotDetected)
[2023-11-26 17:18] VITALS: BP 139/92; PULSE 82; RESP 18; TEMP 36.8; O2SAT 100
[2023-11-26 19:46] LABS: Coronavirus 19, PCR Detected (NotDetected)
== END 2023-11-26 17:20 | disposition home or self-care (01) ==
PROVIDERS: Emergency Provider Nurse Practitioner Family; PCP Internal Medicine
DX: U07.1 COVID-19 (principal); J01.90 Acute sinusitis, unspecified; R05.9 Cough, unspecified; R09.81 Nasal congestion; F17.210 Nicotine dependence, cigarettes, uncomplicated; J44.9 Chronic obstructive pulmonary disease, unspecified; I10 Essential (primary) hypertension; E78.5 Hyperlipidemia, unspecified
CPT/HCPCS: 87636; 99212; 99214; G0463

== ENCOUNTER 2024-01-03 14:31 | Emergency (ER) | payer OTHER, SELFPAY ==
[2024-01-03 14:45] VITALS: BP 129/86; PULSE 81; RESP 18; TEMP 37; O2SAT 97; BMI 28.6
--- NOTE | 2024-01-03 14:59 | ED_ITS ---
Discharge Plan Disposition Patient Disposition: Home, Self-Care Condition: Good Prescriptions Prescriptions: New azithromycin [Zithromax] 250 mg tablet 250 mg PO UD DOSE PK Qty: 6 0RF Rx Instructions: Take two (2) tablets today, then one (1) tablet days #2 thru #5 benzonatate 100 mg capsule 100 mg PO TIDP PRN (Reason: Cough) Qty: 30 0RF methylprednisolone 4 mg Tablets,Dose Pack 4 mg PO DIRECTED 6 Days Qty: 21 0RF Rx Instructions: Take 1 pack as directed for 6 days No Action atorvastatin 40 mg tablet 40 mg PO DAILY 90 Days Qty: 90 4RF bisoprolol fumarate 5 mg tablet 5 mg PO DAILY 90 Days Qty: 90 4RF estradiol 1 mg tablet 1 mg PO DAILY Qty: 90 4RF hydrochlorothiazide 25 mg tablet 25 mg PO DAILY Qty: 90 4RF losartan 50 mg tablet 50 mg PO DAILY Qty: 90 4RF zolpidem 10 mg tablet 10 mg PO HS 30 Days Qty: 30 2RF gabapentin 600 mg tablet 600 mg PO BID 30 Days Qty: 60 2RF dextroamphetamine-amphetamine [Adderall] 20 mg tablet 40 mg PO DAILY buprenorphine-naloxone 8-2 mg tablet, sublingual 1 tab SUBLINGUAL DAILY Patient Comments: DISSOLVE 1 & 3/4 TABLET UNDER THE TONGUE EVERY DAY Referrals Follow up/Referrals: Vazquez Quintanilla DO [Primary Care Provider] - See instructions Activity Restrictions/Add. Instructions Additional Instructions/Restrictions: Drink plenty of fluids. Take tylenol or ibuprofen for pain or fever. Take the medications as directed. Follow up with your regular doctor. GO TO THE ER FOR ANY WORSENING SYMPTOMS Clinical Impressions Clinical Impression: Pharyngitis, Sinusitis Stand Alone Forms Stand Alone Forms: Work/School Release Instructions Patient Instructions: DI for Pharyngitis/Tonsillopharyngitis -- Adult, DI for Sinusitis Discharge ED Provider: Brad Warren [facility] General Stated complaint: sore throat, drainage Mode of Arrival: Ambulatory Source of Information: Patient Limitations: No Limitations Time Seen by Provider: 01/03/24 14:59 Description of Symptoms (Recalled from Triage Doc. by RN): Pt has sore throat. HEENT Symptoms (Recalled from RN notes): Yes Resp Symptoms (Recalled from RN notes): No Skin Symptoms (Recalled from RN notes): No MS Symptoms (Recalled from RN notes): No Functional Status (Recalled from RN notes): n/a History of Present Illness Provider Complaint: She states that for the past 3 days she has had sore throat, sinus congestion and a cough. She states that she has felt bad, but she denies fever/chills/body aches. Related Data Home Medications Medication Instructions Recorded Confirmed buprenorphine 8 mg-naloxone 2 mg 1 tab sublingual DAILY 11/26/23 01/03/24 sublingual tablet dextroamphetamine-amphetamine 20 40 mg PO DAILY 01/03/24 01/03/24 mg tablet (Adderall) Previous Rx's Medication Instructions Recorded atorvastatin 40 mg tablet 40 mg PO DAILY 90 days #90 tabs 12/29/23 bisoprolol fumarate 5 mg tablet 5 mg PO DAILY BP 90 days #90 tabs 12/29/23 estradiol 1 mg tablet 1 mg PO DAILY #90 tabs 12/29/23 gabapentin 600 mg tablet 600 mg PO BID 30 days #60 tabs 12/29/23 hydrochlorothiazide 25 mg tablet 25 mg PO DAILY #90 tabs 12/29/23 losartan 50 mg tablet 50 mg PO DAILY bp #90 tabs 12/29/23 zolpidem 10 mg tablet 10 mg PO HS 30 days #30 tabs 12/29/23 azithromycin 250 mg tablet 250 mg PO UD DOSE PK #6 tabs 01/03/24 (Zithromax) benzonatate 100 mg capsule 100 mg PO TIDP PRN Cough #30 caps 01/03/24 methylprednisolone 4 mg tablets in 4 mg PO DIRECTED 6 days #21 tabs 01/03/24 a dose pack Allergies Allergy/AdvReac Type Severity Reaction Status Date / Time Penicillins [PENICILLINS] Allergy Unknown Verified 01/03/24 14:54 buspirone [From BuSpar] Allergy Verified 01/03/24 14:54 Worker's Comp Is this a Worker's Comp case?: No [facility] Disclaimer: The information contained in this section may have been updated after the patient was seen, as this information can be updated by other users. Medical History Chest pain COPD (chronic obstructive pulmonary disease) Dyspnea Epidermal cyst of ear This area is healed well. Family history of heart disease High blood pressure Patient's blood pressure has been well-controlled on the current regimen. Blood pressure today is 110/90. It is running about this at home. She denies any lightheadedness no dizziness. She is tolerating this well. History of anemia HLD (hyperlipidemia) The atorvastatin was increased to 40 mg at cardiology. Will follow-up with a lipid panel at their convenience. Kidney stone Migraine Patient indicates that the uprogepant is working well. Additionally the gabapentin seems to help her headaches as well. Will continue those. Tobacco dependence syndrome Urinary tract infection Surgical History History of appendectomy History of bilateral carpal tunnel release History of section History of cholecystectomy History of hysterectomy Family History Father Family history of myocardial infarction Other Family history of cancer Family history of hypertension Social History Smoking Status: Current every day smoker tobacco type: cigarettes packs per day: 2 second hand exposure: Yes alcohol intake: current substance use type: former substance user and amphetamines current occupational status: employed Travel in the last 8 weeks: None housing: house current occupational exposures/hazards: No ROS Obtained: Yes All systems reviewed & no additional complaints except as documented Constitutional Constitutional: Reports chills and Reports fever(s) Eyes Eyes: Denies eye discharge ENT Ears, Nose, Mouth, and Throat: Reports as per HPI Cardiovascular Cardiovascular: Denies chest pain Respiratory Respiratory: Denies chest congestion and Reports cough Gastrointestinal Gastrointestingal: Reports nausea; Denies abdominal pain, constipation, cramping, diarrhea or vomiting Musculoskeletal Musculoskeletal: Denies arthralgias Integumentary/Breasts Skin/Breast: Denies rash Neurologic Neurologic: Denies paresthesias Physical Exam General General appearance: alert and in no apparent distress Head Head exam: atraumatic, normocephalic and normal inspection Eye Eye exam: Present normal appearance, PERRL and EOMI ENT ENT exam: Present mucous membranes moist and normal external ear exam Expanded ENT Exam TM/Canal exam: Bilateral TM: erythema and bulging Nose exam: Absent sinus tenderness Mouth exam: Present normal external inspection; Absent drooling Teeth exam: Present normal inspection Throat exam: Present tonsillar erythema, tonsillomegaly and tonsillar exudate Neck Neck exam: Present normal inspection, full ROM and trachea midline; Absent tenderness, meningismus or lymphadenopathy Chest Chest inspection: Present normal inspection and symmetric chest wall rise; Absent tenderness Respiratory Respiratory exam: Present normal lung sounds bilaterally; Absent respiratory distress, wheezes, stridor or accessory muscle use Cardiovascular Cardiovascular exam: Present regular rate and normal rhythm; Absent systolic murmur or diastolic murmur Abdominal Exam Abdominal exam: Present soft and normal bowel sounds; Absent distention, tenderness, guarding, rebound or rigidity Extremities Exam Extremities exam: Present normal inspection and normal capillary refill; Absent calf tenderness Back Exam Back exam: Present normal inspection and full ROM; Absent tenderness, CVA tende rness (R) or CVA tenderness (L) Neurological Exam Neurological exam: Present alert, oriented X3 and CN II-XII intact Psychiatric Psychiatric exam: Present normal affect and normal mood Skin Skin exam: Present warm, dry, intact and normal color Medical Decision Making Medical Records Medical records reviewed: No I reviewed the patient's medical records. Jeffry Inquiry Pt receiving controlled substance: No Vital Signs: 01/03/24 14:45 Temperature 98.6 F Temperature Source Oral Pulse Rate [Right Radial] 81 Respiratory Rate 18 Blood Pressure [Right Arm] 129/86 Blood Pressure Mean [Right Arm] 100 Blood Pressure Source [Right Arm] Automatic Cuff Blood Pressure Position [Right Arm] Sitting 02 Sat by Pulse Oximetry 97 Oxygen Delivery Method Room Air Lab Data Lab results reviewed: Yes I reviewed the patient's lab results.
[2024-01-03 15:05] LABS: UTC Strep Screen (Rapid) Negative (Negative)
[2024-01-03 15:38] VITALS: BP 129/86; PULSE 81; RESP 18; TEMP 37; O2SAT 97
== END 2024-01-03 15:37 | disposition home or self-care (01) ==
PROVIDERS: Emergency Provider Nurse Practitioner Family; PCP Internal Medicine
DX: J01.90 Acute sinusitis, unspecified (principal); J02.9 Acute pharyngitis, unspecified; R05.9 Cough, unspecified; R09.81 Nasal congestion; F17.210 Nicotine dependence, cigarettes, uncomplicated; J44.9 Chronic obstructive pulmonary disease, unspecified; I10 Essential (primary) hypertension; E78.5 Hyperlipidemia, unspecified
CPT/HCPCS: 87880; 99212; 99214; G0463

== ENCOUNTER 2024-03-15 15:44 | Outpatient (CLI) | payer OTHER, SELFPAY ==
--- NOTE | 2024-03-15 15:58 | XR_ITS ---
FINAL REPORT CLINICAL HISTORY: neck pain FINDINGS: CERVICAL SPINE Three views demonstrate no acute fracture. There are mild degenerative changes in the lower cervical spine. There is no malalignment. IMPRESSION: No acute process. Reviewed, Interpreted and Dictated by Kayden Rizvi III, MD Transcribed by Luann Caraballo Authenticated and [facility]
== END 2024-03-15 23:59 | disposition home or self-care (01) ==
LOC: RAD 15:47
PROVIDERS: PCP Internal Medicine; Visit Provider Family Medicine
DX: M54.2 Cervicalgia (principal)
CPT/HCPCS: 72040

== ENCOUNTER 2024-03-19 15:09 | Emergency (ER) | payer OTHER, SELFPAY ==
[2024-03-19 15:10] VITALS: BP 158/103; PULSE 96; RESP 20; TEMP 36.8; O2SAT 99; BMI 29.2
--- NOTE | 2024-03-19 15:17 | PC.NURSE ---
DR KING AT BEDSIDE
--- NOTE | 2024-03-19 15:23 | ED_ITS ---
Discharge Plan Disposition Patient Disposition: Home, Self-Care Prescriptions Prescriptions: No Action atorvastatin 40 mg tablet 40 mg PO DAILY 90 Days Qty: 90 4RF bisoprolol fumarate 5 mg tablet 5 mg PO DAILY 90 Days Qty: 90 4RF estradiol 1 mg tablet 1 mg PO DAILY Qty: 90 4RF hydrochlorothiazide 25 mg tablet 25 mg PO DAILY Qty: 90 4RF methylprednisolone 4 mg tablets,dose pack 4 mg PO DIRECTED 6 Days Qty: 21 0RF Rx Instructions: Take 1 pack as directed for 6 days cyclobenzaprine 10 mg tablet 10 mg PO HS PRN (Reason: muscle spasm) Qty: 20 0RF Wegovy 0.25 mg/0.5 mL pen injector 0.25 mg SQ Q7D Qty: 2 1RF losartan 50 mg tablet See Rx Instructions .ROUTE .COMPLEX Qty: 15 0RF Dose Instruction: TAKE ONE TABLET BY MOUTH ONCE A DAY Rx Instructions: TAKE ONE TABLET BY MOUTH ONCE A DAY zolpidem 10 mg tablet 10 mg PO HS 30 Days Qty: 30 2RF gabapentin 600 mg tablet 600 mg PO BID 30 Days Qty: 60 2RF dextroamphetamine-amphetamine [Adderall] 20 mg tablet 40 mg PO DAILY Qty: 60 0RF buprenorphine-naloxone 8-2 mg tablet, sublingual 1 tab SUBLINGUAL DAILY Patient Comments: DISSOLVE 1 & 3/4 TABLET UNDER THE TONGUE EVERY DAY Referrals Follow up/Referrals: Vazquez Quintanilla DO [Primary Care Provider] - See instructions Activity Restrictions/Add. Instructions Additional Instructions/Restrictions: Your symptoms are most consistent with a lumbosacral myofascial strain. Continue to do the medications you are already prescribed he may also talk to your primary care doctor about physical therapy for not improving. There was no evidence of infection on your urinalysis. However there was microscopic hematuria which is nonspecific could be myoglobin presents in the setting of muscle strain however other pathology remains on the differential such as genitourinary malignancy etc. Please follow-up with primary care doctor and/or urology to ensure resolution of this. Clinical Impressions Clinical Impression: Acute lumbosacral myofascial strain, Hematuria, microscopic Discharge ED Provider: Harman Whitehead General Adult HPI General Chief complaint: PAIN Stated complaint: lower left back pain Time Seen by Provider: 03/19/24 15:16 History of Present Illness HPI narrative: Patient is a 49-year-old female present today with back pain. 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 No other trauma that she is aware of. She states this began on Wednesday was located in the left paraspinal muscular region. She denies any urinary symptoms burning frequency urgency hematuria. Denies any pain in the midline. She also denies saddle anesthesia or urine or bowel incontinence lower extremity paralysis history of injection drug use or cancer. She has been being treated with 60 mg of ibuprofen Flexeril and also a steroid Dosepak without any significant improvement. Related Data Home Medications Medication Instructions Recorded Confirmed buprenorphine 8 mg-naloxone 2 mg 1 tab sublingual DAILY 11/26/23 03/15/24 sublingual tablet Previous Rx's Medication Instructions Recorded atorvastatin 40 mg tablet 40 mg PO DAILY 90 days #90 tabs 12/29/23 bisoprolol fumarate 5 mg tablet 5 mg PO DAILY BP 90 days #90 tabs 12/29/23 estradiol 1 mg tablet 1 mg PO DAILY #90 tabs 12/29/23 hydrochlorothiazide 25 mg tablet 25 mg PO DAILY #90 tabs 12/29/23 losartan 50 mg tablet See Rx Instructions .Route 01/06/24 .COMPLEX #15 tabs zolpidem 10 mg tablet 10 mg PO HS 30 days #30 tabs 02/02/24 gabapentin 600 mg tablet 600 mg PO BID 30 days #60 tabs 03/01/24 dextroamphetamine-amphetamine 20 40 mg (2 x 20 mg) PO DAILY #60 tabs 03/02/24 mg tablet (Adderall) cyclobenzaprine 10 mg tablet 10 mg PO HS PRN muscle spasm #20 03/15/24 tabs methylprednisolone 4 mg tablets in 4 mg PO DIRECTED 6 days #21 tabs 03/15/24 a dose pack semaglutide (weight loss) 0.25 0.25 mg (0.5 mL) SQ Q7D #2 mL 03/15/24 mg/0.5 mL subcutaneous pen injector (Wegovy) Allergies Allergy/AdvReac Type Severity Reaction Status Date / Time Penicillins [PENICILLINS] Allergy Unknown Verified 03/15/24 14:59 buspirone [From BuSpar] Allergy Verified 03/15/24 14:59 [facility] Disclaimer: The information contained in this section may have been updated after the patient was seen, as this information can be updated by other users. Medical History (Updated 03/19/24 @ 15:55 by Harman Whitehead MD) Vomiting Viral pharyngitis Nausea Pharyngitis Sinusitis Urinary tract infection Kidney stone COPD (chronic obstructive pulmonary disease) History of anemia HLD (hyperlipidemia) Epidermal cyst of ear Migraine Tobacco dependence syndrome Family history of heart disease Dyspnea Chest pain High blood pressure Surgical History History of bilateral carpal tunnel release History of appendectomy History of cholecystectomy History of hysterectomy History of section Family History Father Family history of myocardial infarction Other Family history of cancer Family history of hypertension Social History Smoking Status: Current every day smoker tobacco type: cigarettes packs per day: 2 second hand exposure: Yes alcohol intake: current substance use type: former substance user and amphetamines current occupational status: employed Travel in the last 8 weeks: None housing: house current occupational exposures/hazards: No ROS Obtained: Yes All systems reviewed & no additional complaints except as documented Physical Exam General General appearance: alert Respiratory Respiratory exam: Present normal lung sounds bilaterally Cardiovascular Cardiovascular exam: Present regular rate Back Exam Back exam: Present tenderness (There is tenderness in the left paraspinal and lumbosacral region also some tenderness in the left CVA region no midline cervical thoracic or lumbar spine tenderness lower extremity neurovascular exam is normal) and CVA tenderness (L) Neurological Exam Neurological exam: Present alert and oriented X3 Medical Decision Making Jeffry Inquiry Pt receiving controlled substance: No Vital Signs: 03/19/24 15:10 Temperature 98.2 F Temperature Source Oral Pulse Rate [Right] 96 H Respiratory Rate 20 Blood Pressure [Right Arm] 158/103 H Blood Pressure Mean [Right Arm] 121 Blood Pressure Source [Right Arm] Automatic Cuff 02 Sat by Pulse Oximetry 99 Oxygen Delivery Method Room Air Lab Data Lab results reviewed: Yes I reviewed the patient's lab results. Lab Results 03/19/24 15:16: Urine Color Yellow, Urine Appearance Clear, Urine pH 6.5, Ur Specific [place] 1.020, Urine Protein Negative, Urine Glucose (UA) Negative, Urine Ketones Negative, Urine Blood 2+, Urine Nitrate Negative, Urine Bilirubin Negative, Urine Urobilinogen 0.2, Ur Leukocyte Esterase Negative, Urine RBC 3-5, Urine WBC None, Ur Squamous Epith Cells Occasional, Urine Bacteria None, Urine HCG, Qual Negative Orders (Tests/Meds): ED MEDICATIONS Discontinued Medications Generic Name Dose Route Start Last Admin Trade Name Alonzo PRN Reason Stop Dose Admin Lidocaine 1 each 03/19/24 15:21 03/19/24 15:45 Lidocaine 5% Transdermal Patch TP 03/19/24 15:22 1 each ONCE ONE Administration ORDERS Category Date Time Status UA [Urinalysis and Microscopic] Stat Lab 03/19/24 15:16 Completed Urine , HCG Qual. Stat Lab 03/19/24 15:16 Completed Medical Decision Narrative: 49-year-old female presenting today with above history and physical no red flags from a [employer]OW [employer] standpoint no indication for any imaging. Most likely lumbosacral strain. However she does have some tenderness over her CVA region we will get a urinalysis pyelonephritis is on the differential but is unlikely. I have applied a lidocaine patch and she will continue the medication she is already trying at home. She may follow-up with her primary care doctor for physical therapy as well. Reassessment 3:56 PM urinalysis returned which does not demonstrate any evidence of urinary tract infection will not treat for pyelonephritis. However there is microscopic hematuria patient had a hysterectomy 23 years ago is not on her period. She denies any gross hematuria. Genitourinary malignancy kidney stone are still on the differential. Also myoglobin and muscle strain certainly could be the cause of this as well. This is nonspecific. I offered her a CT scan for further evaluation management and she declined this and will follow-up closely with her primary care doctor. She is aware of the microscopic hematuria and will follow this with her doctor to resolution or further workup. She has been advised to continue medications already prescribed. She was discharged in stable condition. Critical Care Critical Care Time Critical Care Time: No
[2024-03-19 15:26] LABS: Microscopic, Urine URINE MICROSCOPIC (MICROSCOPIC)
[2024-03-19 15:30] LABS: Appearance,Urine CLEAR (Clear); Bilirubin,Urine Negative (Negative); Blood, Urine 2+ (Negative); Color,Urine YELLOW (Yellow); Glucose,Urine (UA) Negative (Negative); Ketones,Urine Negative (Negative); Leukocyte Esterase,Urine Negative (Negative); Nitrate,Urine Negative (Negative); PH,Urine 6.5 (5.0-8.5); Protein,Urine Negative (Negative); Urobilinogen,Urine 0.2 EU/dl (0.2)
[2024-03-19 15:34] LABS: Urine Pregnancy, HCG Qual. Negative (Negative)
[2024-03-19] MEDS: LIDOCAINE 5% TRANSDERMAL PATCH 1 EACH TP (15:45)
[2024-03-19 15:48] LABS: Squamous Epithelial Cell,Urine Occasional #/hpf (0-5)
[2024-03-19 15:58] VITALS: BP 133/91; PULSE 82; RESP 18; TEMP 36.7; O2SAT 98
--- NOTE | 2024-03-19 15:59 | PC.NURSE ---
Pt refusing to get further treatment to r/o hematuria. States she will be alight. I'll talk to Dr. Quintanilla about the urine .
== END 2024-03-19 15:59 | disposition home or self-care (01) ==
PROVIDERS: Emergency Provider Student in an Organized Health Care Education/Training Program; PCP Internal Medicine
DX: S39.012A Strain of muscle, fascia and tendon of lower back, initial encounter (principal); R31.29 Other microscopic hematuria; F17.210 Nicotine dependence, cigarettes, uncomplicated; X50.0XXA Overexertion from strenuous movement or load, initial encounter
CPT/HCPCS: 81001; 81025; 99283

== ENCOUNTER 2024-06-21 14:40 | Outpatient (CLI) | payer OTHER, SELFPAY ==
[2024-06-24 00:08] LABS: QuantiFERON-TB Gold Plus Negative (Negative)
== END 2024-06-21 23:59 | disposition home or self-care (01) ==
LOC: LAB 14:41
PROVIDERS: PCP Internal Medicine; Visit Provider Internal Medicine
DX: Z11.1 Encounter for screening for respiratory tuberculosis (principal)
CPT/HCPCS: 86480

== ENCOUNTER 2024-07-09 17:04 | Emergency (ER) | payer OTHER, SELFPAY ==
[2024-07-09 17:38] VITALS: BP 120/95; PULSE 97; RESP 20; TEMP 36.6; O2SAT 98; BMI 29.2
--- NOTE | 2024-07-09 17:39 | EXP.UTC ---
Discharge Plan Disposition Patient Disposition: Home, Self-Care Condition: Good Prescriptions Prescriptions: New methylprednisolone 4 mg Tablets,Dose Pack 4 mg PO DIRECTED 6 Days Qty: 21 0RF Rx Instructions: Take 1 pack as directed for 6 days No Action dextroamphetamine-amphetamine [Adderall] 20 mg tablet 40 mg PO DAILY 30 Days Qty: 60 0RF gabapentin 600 mg tablet 600 mg PO BID 30 Days Qty: 60 2RF estradiol 1 mg tablet 1 mg PO DAILY Qty: 90 4RF losartan 50 mg tablet See Rx Instructions .ROUTE .COMPLEX Qty: 15 0RF Dose Instruction: TAKE ONE TABLET BY MOUTH ONCE A DAY Rx Instructions: TAKE ONE TABLET BY MOUTH ONCE A DAY zolpidem 10 mg tablet 10 mg PO HS 30 Days Qty: 30 2RF Referrals Follow up/Referrals: Montez Humphrey DO [Staff Physician] - See instructions Vazquez Quintanilla DO [Primary Care Provider] - See instructions Activity Restrictions/Add. Instructions Additional Instructions/Restrictions: Rest the extremity, Wear the devin wrap for compression, Elevate the extremity as tolerated while you are resting. Take the medication as directed. Follow up with Dr. Humphrey (orthopedics). I put in a referral but you need to call his office and schedule an appointment. Follow up with your regular doctor. GO TO THE ER FOR ANY WORSENING SYMPTOMS Clinical Impressions Clinical Impression: Effusion of left knee joint, Left knee pain Stand Alone Forms Stand Alone Forms: Work/School Release Instructions Patient Instructions: DI for Knee Effusion, DI for Knee Pain Print Language Print Language: Qatari Discharge ED Provider: Brad Warren [facility] General Stated complaint: left knee is swollen , pressure Time Seen by Provider: 07/09/24 17:39 Related Data Previous Rx's ?Medication ?Instructions ?Recorded estradiol 1 mg tablet 1 mg PO DAILY #90 tabs 12/29/23 losartan 50 mg tablet See Rx Instructions .Route 01/06/24 .COMPLEX #15 tabs zolpidem 10 mg tablet 10 mg PO HS 30 days #30 tabs 05/23/24 dextroamphetamine-amphetamine 20 40 mg (2 x 20 mg) PO DAILY 30 days 06/15/24 mg tablet (Adderall) #60 tabs gabapentin 600 mg tablet 600 mg PO BID 30 days #60 tabs 06/15/24 methylprednisolone 4 mg tablets in 4 mg PO DIRECTED 6 days #21 tabs 10/06/24 a dose pack Allergies Allergy/AdvReac Type Severity Reaction Status Date / Time Penicillins [PENICILLINS] Allergy Unknown Verified 06/14/24 15:07 buspirone [From BuSpar] Allergy Verified 06/14/24 15:07 sumatriptan [From Imitrex] AdvReac Mild Verified 06/14/24 15:07 [facility] Disclaimer: The information contained in this section may have been updated after the patient was seen, as this information can be updated by other users. Medical History (Updated 07/09/24 @ 18:10 by Brad Warren APRN) Tuberculosis screening Vomiting Viral pharyngitis Nausea Pharyngitis Sinusitis Urinary tract infection Kidney stone COPD (chronic obstructive pulmonary disease) History of anemia HLD (hyperlipidemia) Epidermal cyst of ear Migraine Tobacco dependence syndrome Family history of heart disease Dyspnea Chest pain High blood pressure Surgical History History of bilateral carpal tunnel release History of appendectomy History of cholecystectomy History of hysterectomy History of section Family History Father Family history of myocardial infarction Other Family history of cancer Family history of hypertension Social History Smoking Status: Current every day smoker tobacco type: cigarettes packs per day: 2 second hand exposure: Yes alcohol intake: current substance use type: former substance user and amphetamines current occupational status: employed Travel in the last 8 weeks: None housing: house current occupational exposures/hazards: No ROS Obtained: Yes All systems reviewed & no additional complaints except as documented Constitutional Constitutional: Denies chills and Denies fever(s) Eyes Eyes: Denies eye discharge ENT Ears, Nose, Mouth, and Throat: Denies dizziness, Denies otalgia and Denies sore throat Cardiovascular Cardiovascular: Denies chest pain Respiratory Respiratory: Denies shortness of breath, Denies chest congestion, Denies cough, Denies stridor and Denies wheezing Gastrointestinal Gastrointestingal: Denies nausea or vomiting Musculoskeletal Musculoskeletal: Reports system reviewed and no additional complaints, except as documented and Denies arthralgias Integumentary/Breasts Skin/Breast: Denies rash Neurologic Neurologic: Denies dizziness and Denies paresthesias Allergic/Immunologic Allergic/Immunologic: Denies wheezing Physical Exam General General appearance: alert and in no apparent distress Head Head exam: atraumatic, normocephalic and normal inspection Eye Eye exam: Present normal appearance, PERRL and EOMI ENT ENT exam: Present normal exam, normal oropharynx, mucous membranes moist, TM's normal bilaterally and normal external ear exam Neck Neck exam: Present normal inspection, full ROM and trachea midline; Absent meningismus or lymphadenopathy Chest Chest inspection: Present normal inspection and symmetric chest wall rise; Absent tenderness Respiratory Respiratory exam: Present normal lung sounds bilaterally; Absent respiratory distress Cardiovascular Cardiovascular exam: Present regular rate and normal rhythm; Absent JVD Abdominal Exam Abdominal exam: Present soft and normal bowel sounds; Absent distention, tenderness or guarding Extremities Exam Extremities exam: Present normal inspection, full ROM and normal capillary refill; Absent calf tenderness Back Exam Back exam: Present normal inspection; Absent tenderness Neurological Exam Neurological exam: Present alert and oriented X3 Psychiatric Psychiatric exam: Present normal affect and normal mood Skin Skin exam: Present warm, dry, intact and normal color Lymphatic Lymphatic Findings: no adenopathy Medical Decision Making Medical Records Medical records reviewed: No I reviewed the patient's medical records. Screening: Per USPSTF and CDC recommendations, given the prevalence of disease in our region, it is our hospital?s policy to screen for HIV and viral Hepatitis for all patients aged 18 and over and those with ongoing risk factors. Jeffry Inquiry Pt receiving controlled substance: No
[2024-07-09 18:12] VITALS: BP 120/95; PULSE 97; RESP 20; TEMP 36.6
== END 2024-07-09 18:16 | disposition home or self-care (01) ==
PROVIDERS: Emergency Provider Nurse Practitioner Family; PCP Internal Medicine
DX: M25.462 Effusion, left knee (principal); M25.562 Pain in left knee
CPT/HCPCS: 99213; G0381

== ENCOUNTER 2024-07-19 15:39 | Outpatient (CLI) | payer OTHER, SELFPAY ==
[2024-07-19 18:01] LABS: Basophils # 0.2 K/mm3 (0-0.2); Basophils % 1.5 % (0.1-2.0); Eosinophils # 0.2 K/mm3 (0.0-0.4); Eosinophils % 1.9 % (0.1-12.0); Hematocrit 39.7 % (37.0-47.0); Hemoglobin 13.7 g/dL (12.2-16.2); Lymphocytes # 3.8 K/mm3 (0.7-4.5); Lymphocytes % 38.5 % (10-50); Mean Corpuscular HGB Conc 34.5 g/dL (31.8-35.4); Mean Corpuscular Hemoglobin 30.2 pg (27.0-31.2); Mean Corpuscular Volume 87.7 fl (81-99); Mean Platelet Volume 8.6 fl (7.4-10.4); Monocytes # 0.7 K/mm3 (0.1-1.0); Monocytes % 6.7 % (1.7-9.3); Neutrophils % 51.4 % (37.0-80.0); Platelet Count 261 K/mm3 (142-424); Red Blood Count 4.53 M/mm3 (4.20-5.40); Red Cell Distribution Width 13.5 % (11.5-17.5); White Blood Count 9.8 K/mm3 (4.8-10.8)
[2024-07-19 19:19] LABS: Albumin Level 4.7 g/dl (3.5-5.0); Chloride 101 mmol/L (98-107)
[2024-07-19 19:20] LABS: Potassium 3.6 mmoL/L (3.5-5.1); Sodium 137 mmol/L (136-145)
[2024-07-19 19:22] LABS: Alanine Aminotransferase 49 U/L (12-78); Albumin/Globulin Ratio 1.7 (1.1-1.8); Alkaline Phosphatase 76 U/L (38-126); Anion Gap 7.6 mEq/L (5-15); Aspartate Amino Transferase 37 U/L (14-36); Bilirubin,Total 0.4 mg/dl (0.2-1.3); Blood Urea Nitrogen 16 mg/dl (7-17); Carbon Dioxide 32 mmol/L (22.0-30.0); Cholesterol 303 mg/dl (140-200); Estimated Glomerular Filt Rate 89 ml/min (>60); GFR (African American) 108 ML/MIN (>60); Globulin 2.8 g/dL (1.3-3.2); Total Protein,Serum 7.5 g/dl (6.3-8.2); Triglycerides 353 mg/dl (30-150); VLDL Cholesterol 71 mg/dL (0-40)
[2024-07-19 19:23] LABS: Calcium 10.1 mg/dl (8.4-10.2); Chol/HDL Ratio 6.1 (1-3.5); Glucose 85 mg/dl (74-100); HDL Cholesterol 50 mg/dl (40-60)
[2024-07-19 19:34] LABS: Direct LDL Cholesterol 158.08 mg/dL (100-129)
[2024-07-19 19:40] LABS: Free T4 (Free Thyroxine) 1.09 ng/dl (0.78-2.19)
[2024-07-19 19:52] LABS: Thyroid Stimulating Hormone 0.91 uIU/mL (0.465-4.68)
== END 2024-07-19 23:59 | disposition home or self-care (01) ==
LOC: LAB.DROPOF 07-20 13:32
PROVIDERS: PCP Nurse Practitioner Acute Care; Visit Provider Nurse Practitioner Acute Care
DX: R53.83 Other fatigue (principal); Z13.220 Encounter for screening for lipoid disorders; R63.5 Abnormal weight gain; Z68.29 Body mass index [BMI] 29.0-29.9, adult
CPT/HCPCS: 80050; 80053; 80061; 84439; 84443; 85025

== ENCOUNTER 2024-09-20 13:43 | Outpatient (CLI) | payer OTHER, SELFPAY ==
[2024-09-20 22:47] LABS: Creatinine,Urine Random 59 mg/dL (Not Estab.); Microalbumin < 6.000 mg/L (0-16.7)
== END 2024-09-20 23:59 | disposition home or self-care (01) ==
LOC: LAB.DROPOF 09-28 13:43
PROVIDERS: PCP Internal Medicine; Visit Provider Internal Medicine
DX: I10 Essential (primary) hypertension (principal)
CPT/HCPCS: 82043; 82570

== ENCOUNTER 2024-09-29 11:07 | Emergency (ER) | payer OTHER, SELFPAY ==
[2024-09-29 12:55] VITALS: BP 126/84; PULSE 101; RESP 21; TEMP 37.9; O2SAT 98; BMI 29.1
--- NOTE | 2024-09-29 13:12 | EXP.UTC ---
Discharge Plan Disposition Patient Disposition: Home, Self-Care Condition: Good Prescriptions Prescriptions: New oseltamivir [Tamiflu] 75 mg capsule 75 mg PO BID 5 Days Qty: 10 0RF No Action dextroamphetamine-amphetamine [Adderall] 20 mg tablet 40 mg PO DAILY 60 Days Qty: 120 0RF gabapentin 600 mg tablet 600 mg PO BID 30 Days Qty: 60 2RF zolpidem 10 mg tablet 10 mg PO HS 30 Days Qty: 30 2RF losartan 50 mg tablet See Rx Instructions .ROUTE .COMPLEX Qty: 15 0RF Dose Instruction: TAKE ONE TABLET BY MOUTH ONCE A DAY Rx Instructions: TAKE ONE TABLET BY MOUTH ONCE A DAY estradiol 1 mg tablet See Rx Instructions .ROUTE .COMPLEX Qty: 90 0RF Dose Instruction: TAKE ONE TABLET BY MOUTH ONCE A DAY Rx Instructions: TAKE ONE TABLET BY MOUTH ONCE A DAY bisoprolol fumarate 5 mg tablet 5 mg PO DAILY Qty: 90 0RF atorvastatin 40 mg tablet See Rx Instructions .ROUTE .COMPLEX Qty: 90 0RF Dose Instruction: TAKE ONE TABLET BY MOUTH ONCE A DAY Rx Instructions: TAKE ONE TABLET BY MOUTH ONCE A DAY Referrals Follow up/Referrals: Vazquez Quintanilla DO [Primary Care Provider] - See instructions Activity Restrictions/Add. Instructions Additional Instructions/Restrictions: Start Tamiflu today if you are going to take it. Discussed risk and possible benefits. Lots of rest Increase Fluids water, Gatorade, powerade, pedialyte,if infant/toddler/child Alternate Tylenol and / or ibuprofen as discussed for fever, aches, chills Follow up IMMEDIATELY with your family doctor for new or worsening Symptoms OR no noticeable improvement over the next 48-72 hours, 911 for difficulty or breathing You or your child area contagious until no fever, aches, chills for 24 hours with medication for symptoms Help Prevent the spread of influenza: ?Wash your hands often. Use soap and water. Wash your hands after you use the bathroom, change a child's diapers, or sneeze. Wash your hands before you prepare or eat food. Use gel hand cleanser that has 60% alcohol, when soap and water are not available. Do not touch your eyes, nose, or mouth unless you have washed your hands first. Cover your mouth when you sneeze or cough. Cough into a tissue or the bend of your arm. If you use a tissue, throw it away immediately and wash your hands. Clean shared items with a germ-killing yard cleaner. Clean table surfaces, doorknobs, and light switches. Do not share towels, silverware, and dishes with people who are sick. Wash bed sheets, towels, silverware, and dishes with soap and water. Wear a mask over your mouth and nose if you are sick. The face mask may help protect others from becoming infected with the flu. Wear the mask when in common areas of your home or if you seek care with a healthcare provider. Stay away from others if you are sick. Stay at home until 24 hours after your fever and symptoms are gone. Clinical Impressions Clinical Impression: Influenza Instructions Patient Instructions: DI for Influenza -- Adult, Influenza Print Language Print Language: Bolivian Discharge ED Provider: Rebeca Dominguez [facility] HPI General Stated complaint: fever, headache, cough, body aches, flu exp Time Seen by Provider: 09/29/24 13:12 History of Present Illness Provider Complaint: Patient states that she was exposed to flu now she is having symptoms States that she started yesterday with fever, chills, headache, body aches, and nasal congestion States today she was feeling worse so she came in to get checked Related Data Previous Rx's ?Medication ?Instructions ?Recorded losartan 50 mg tablet See Rx Instructions .Route 01/06/24 .COMPLEX #15 tabs zolpidem 10 mg tablet 10 mg PO HS 30 days #30 tabs 08/30/24 dextroamphetamine-amphetamine 20 40 mg (2 x 20 mg) PO DAILY 60 days 09/20/24 mg tablet (Adderall) #120 tabs gabapentin 600 mg tablet 600 mg PO BID 30 days #60 tabs 09/20/24 atorvastatin 40 mg tablet See Rx Instructions .Route 09/28/24 .COMPLEX #90 tabs bisoprolol fumarate 5 mg tablet 5 mg PO DAILY BP #90 tabs 09/28/24 estradiol 1 mg tablet See Rx Instructions .Route 09/28/24 .COMPLEX #90 tabs oseltamivir 75 mg capsule (Tamiflu) 75 mg PO BID 5 days #10 caps 09/29/24 Allergies Allergy/AdvReac Type Severity Reaction Status Date / Time Penicillins (PENICILLINS) Allergy Unknown Verified 09/20/24 14:38 buspirone (From BuSpar) Allergy Verified 09/20/24 14:38 sumatriptan (From Imitrex) AdvReac Mild Verified 09/20/24 14:38 [facility] Disclaimer: The information contained in this section may have been updated after the patient was seen, as this information can be updated by other users. Medical History ADD (attention deficit disorder) Tuberculosis screening Vomiting Viral pharyngitis Nausea Pharyngitis Sinusitis Urinary tract infection Kidney stone COPD (chronic obstructive pulmonary disease) History of anemia HLD (hyperlipidemia) Epidermal cyst of ear This area is healed well. Migraine Tobacco dependence syndrome Family history of heart disease Dyspnea Chest pain High blood pressure Patient's blood pressure has been well-controlled on the current regimen. Blood pressure today is 110/90. It is running about this at home. She denies any lightheadedness no dizziness. She is tolerating this well. Surgical History History of bilateral carpal tunnel release History of appendectomy History of cholecystectomy History of hysterectomy History of section Family History Father Family history of myocardial infarction Other Family history of cancer Family history of hypertension Social History Smoking Status: Current every day smoker tobacco type: cigarettes packs per day: 2 second hand exposure: Yes alcohol intake: current substance use type: former substance user and amphetamines current occupational status: employed Travel in the last 8 weeks: None housing: house current occupational exposures/hazards: No Have you lived/traveled outside [place] in past 30 days?: No Contact w/someone who lives/traveled outside [place] past 30 days?: No Exposure to someone with infectious disease in past 14 days?: No Do you have a fever (greater than 100.4 F or 38 C)?: Yes Have you tested positive for COVID-19: No Exposed to someone with COVID-19 in past 14 days?: No Do you have a sore throat?: Yes Do you have a cough?: Yes Do you have any weakness?: No Do you have any diarrhea?: No Are you experiencing any unusual bleeding?: No Do you have any muscle aches/pain?: No Do you have any abdominal pain?: No Are you experiencing loss of taste or smell?: No ROS Obtained: Yes All systems reviewed & no additional complaints except as documented and Yes Systems reviewed as appropriate & no additional complaints except as documented Constitutional Constitutional: Reports system reviewed and no additional complaints, except as documented, Reports as per HPI, Reports body ache, Reports chills, Reports fever(s) and Reports headache(s) ENT Ears, Nose, Mouth, and Throat: Reports system reviewed and no additional complaints, except as documented, Reports headache(s), Reports nasal congestion and Reports nasal discharge Cardiovascular Cardiovascular: Reports system reviewed and no additional complaints, except as documented and Reports as per HPI Respiratory Respiratory: Reports system reviewed and no additional complaints, except as documented and Reports as per HPI Gastrointestinal Gastrointestingal: Reports system reviewed and no additional complaints, except as documented and as per HPI Neurologic Neurologic: Reports headache(s) Physical Exam General General appearance: alert and in no apparent distress ENT ENT exam: Present mucous membranes moist Expanded ENT Exam Nose exam: Present other (clear drainage) Throat exam: Present normal inspection Respiratory Respiratory exam: Present normal lung sounds bilaterally; Absent respiratory distress or wheezes Cardiovascular Cardiovascular exam: Present regular rate, normal rhythm and normal heart sounds Abdominal Exam Abdominal exam: Present soft and normal bowel sounds; Absent distention or tenderness Neurological Exam Neurological exam: Present alert, oriented X3 and normal gait Medical Decision Making Medical Records Screening: Per USPSTF and CDC recommendations, given the prevalence of disease in our region, it is our hospital?s policy to screen for HIV and viral Hepatitis for all patients aged 18 and over and those with ongoing risk factors. Jeffry Inquiry Pt receiving controlled substance: No Jeffry was queried for this patient: No Lab Data Lab results reviewed: Yes I reviewed the patient's lab results.
[2024-09-29 13:14] LABS: UTC Influenza A Antigen Positive (Negative)
[2024-09-29 13:15] LABS: UTC Influenza B Antigen Negative (Negative)
[2024-09-29 13:16] VITALS: BP 126/84; PULSE 101; RESP 21; TEMP 37.9; O2SAT 98
== END 2024-09-29 13:19 | disposition home or self-care (01) ==
PROVIDERS: Emergency Provider Nurse Practitioner; PCP Internal Medicine
DX: J10.1 Influenza due to other identified influenza virus with other respiratory manifestations (principal)
CPT/HCPCS: 87804; 99213; G0381

== ENCOUNTER 2024-12-30 09:57 | Outpatient (CLI) | payer OTHER, SELFPAY ==
[2024-12-30 17:14] LABS: Coronavirus 19, PCR Not Detected (NotDetected); Influenza A, PCR Not Detected (NotDetected); Influenza B, PCR Not Detected (NotDetected)
== END 2024-12-30 23:59 | disposition home or self-care (01) ==
LOC: LAB.DROPOF 01-01 09:58
PROVIDERS: PCP Internal Medicine; Visit Provider Nurse Practitioner Family
DX: R52 Pain, unspecified (principal); Z20.828 Contact with and (suspected) exposure to other viral communicable diseases
CPT/HCPCS: 87636

== ENCOUNTER 2025-01-03 15:20 | Outpatient (CLI) | payer OTHER, SELFPAY ==
[2025-01-03 20:13] LABS: Alanine Aminotransferase 99 U/L (12-78); Albumin Level 4.3 g/dl (3.5-5.0); Albumin/Globulin Ratio 1.6 (1.1-1.8); Alkaline Phosphatase 110 U/L (38-126); Anion Gap 13.1 mEq/L (5-15); Aspartate Amino Transferase 76 U/L (14-36); Bilirubin,Direct 0.2 mg/dl (0.0-0.4); Bilirubin,Indirect 0.1 mg/dL (0.0-0.9); Bilirubin,Total 0.3 mg/dl (0.2-1.3); Bilirubin,Unconjugated 0.1 mg/dL (0.0-1.1); Blood Urea Nitrogen 10 mg/dl (7-17); Calcium 9.4 mg/dl (8.4-10.2); Carbon Dioxide 27 mmol/L (22.0-30.0); Chloride 104 mmol/L (98-107); Chol/HDL Ratio 3.3 (1-3.5); Cholesterol 159 mg/dl (140-200); Estimated Glomerular Filt Rate 89 ml/min (>60); GFR (African American) 108 ML/MIN (>60); Globulin 2.7 g/dL (1.3-3.2); Glucose 76 mg/dl (74-100); HDL Cholesterol 48 mg/dl (40-60); Potassium 4.1 mmoL/L (3.5-5.1); Sodium 140 mmol/L (136-145); Triglycerides 182 mg/dl (30-150); VLDL Cholesterol 36 mg/dL (0-40)
[2025-01-03 20:25] LABS: Direct LDL Cholesterol 77.97 mg/dL (100-129)
[2025-01-03 21:00] LABS: HIV Combo NEGATIVE (Negative)
[2025-01-03 21:03] LABS: Vitamin B12 545 pg/mL (239-931)
[2025-01-03 21:06] LABS: Hepatitis C Ab Qual. W/ RFX NEGATIVE (Negative)
[2025-01-03 21:59] LABS: Hemoglobin A1C 5.7 % (4.0-6.0)
== END 2025-01-03 23:59 | disposition home or self-care (01) ==
LOC: LAB.DROPOF 01-04 09:48
PROVIDERS: PCP Family Medicine; Visit Provider Family Medicine
DX: Z11.59 Encounter for screening for other viral diseases (principal); Z13.1 Encounter for screening for diabetes mellitus; I10 Essential (primary) hypertension; E78.2 Mixed hyperlipidemia; G47.00 Insomnia, unspecified
CPT/HCPCS: 80053; 80061; 80076; 82607; 83036; 86803; 87389

== ENCOUNTER 2025-01-18 16:43 | Outpatient (CLI) | payer OTHER, SELFPAY ==
[2025-01-18 18:15] LABS: Albumin Level 4.5 g/dl (3.5-5.0)
[2025-01-18 18:18] LABS: Alanine Aminotransferase 26 U/L (12-78); Alkaline Phosphatase 79 U/L (38-126); Aspartate Amino Transferase 32 U/L (14-36); Bilirubin,Indirect 0.2 mg/dL (0.0-0.9); Bilirubin,Total 0.2 mg/dl (0.2-1.3); Bilirubin,Unconjugated 0.2 mg/dL (0.0-1.1); Total Protein,Serum 7.3 g/dl (6.3-8.2)
[2025-01-20 08:12] LABS: Hepatitis B Core Antibody, IgM Negative (Negative); Hepatitis B Surface Antigen Negative (Negative)
== END 2025-01-18 23:59 | disposition home or self-care (01) ==
LOC: LAB.DROPOF 16:43
PROVIDERS: PCP Internal Medicine; Visit Provider Internal Medicine
DX: R74.8 Abnormal levels of other serum enzymes (principal)
CPT/HCPCS: 80076; 86705; 87340

== ENCOUNTER 2025-01-26 07:51 | Outpatient (CLI) | payer OTHER, SELFPAY ==
--- NOTE | 2025-01-26 08:07 | US_ITS ---
FINAL REPORT CLINICAL HISTORY: elevated liver enzymes COMPARISON: None FINDINGS: Sonographic images of the right upper quadrant were obtained. The pancreas is partially obscured. There is mild intrahepatic biliary ductal dilatation. The gallbladder has been surgically resected. The common bile duct is enlarged, measuring 13 mm in diameter. No evidence of choledocholithiasis is seen. Limited images of the right kidney are unremarkable. IMPRESSION: Prior cholecystectomy. Enlarged common bile duct, measuring 13 mm in diameter. Mild intrahepatic biliary ductal dilatation is noted as well. No evidence of choledocholithiasis is seen, however would consider MRCP for further evaluation, particularly of the distal common bile duct. Reviewed, Interpreted and Dictated by Johnathon Li MD Transcribed by Christy Abel Authenticated and [facility]
== END 2025-01-26 23:59 | disposition home or self-care (01) ==
PROVIDERS: PCP Internal Medicine; Visit Provider Internal Medicine
DX: R74.8 Abnormal levels of other serum enzymes (principal)
CPT/HCPCS: 76705

== ENCOUNTER 2025-02-08 08:48 | Outpatient (CLI) | payer OTHER, SELFPAY ==
--- NOTE | 2025-02-08 09:00 | MR_ITS ---
FINAL REPORT TECHNIQUE: Multiplanar multisequence imaging of the abdomen was obtained without contrast. MRCP images were obtained and evaluated as well, with multiplanar 3D reconstructions obtained. CLINICAL HISTORY: Elevated liver enzymes, abnormal bile ducts dilate COMPARISON: None FINDINGS: The liver is homogeneous. There is no focal hepatic lesion. The gallbladder is absent. The spleen is normal in size and signal intensity. The adrenal glands and pancreas are unremarkable. The kidneys are without mass or hydronephrosis. Limited evaluation of the GI tract is within normal limits. There is no ascites or lymphadenopathy. The gallbladder is absent. There is intra and extrahepatic biliary ductal dilatation, the common bile duct measuring up to 13 mm in size. No filling defect or stricture is identified. There is a low medial insertion of the cystic duct, a not uncommon normal variant. The pancreatic duct appears normal. IMPRESSION: Intra and extrahepatic biliary ductal dilatation without filling defect or stricture. Favor that this is related to prior cholecystectomy. Reviewed, Interpreted and Dictated by Fatemeh [place] MD Transcribed by Christy Abel Authenticated and [facility]
== END 2025-02-08 23:59 | disposition home or self-care (01) ==
LOC: RAD 08:48
PROVIDERS: PCP Internal Medicine; Visit Provider Internal Medicine
DX: R74.8 Abnormal levels of other serum enzymes (principal); K83.9 Disease of biliary tract, unspecified
CPT/HCPCS: 74181; 76376

== ENCOUNTER 2025-04-28 16:04 | Emergency (ER) | payer OTHER, SELFPAY ==
[2025-04-28 16:16] VITALS: BP 168/95; PULSE 99; RESP 18; TEMP 37.4; O2SAT 100; BMI 28.3
--- NOTE | 2025-04-28 16:20 | ED_ITS ---
Discharge Plan Prescriptions Prescriptions: No Action buprenorphine-naloxone 8-2 mg tablet, sublingual 1 tab sublingual DAILY famotidine 20 mg tablet 20 mg PO HS Qty: 30 1RF naproxen 500 mg tablet 500 mg PO BID PRN (Reason: pain in feet) Qty: 60 1RF Rx Instructions: Take with food or meal trazodone 50 mg tablet 50 mg PO HS Qty: 90 1RF hydrochlorothiazide 25 mg tablet 25 mg PO DAILY Qty: 90 1RF Ubrelvy 50 mg tablet 50 mg PO ONCE PRN (Reason: migraine) Qty: 90 1RF dextroamphetamine-amphetamine [Adderall] 20 mg tablet 20 mg PO BID Qty: 60 0RF Rx Instructions: administer doses at least 4-6 hours apart escitalopram oxalate [Lexapro] 10 mg tablet 10 mg PO DAILY Qty: 30 2RF bisoprolol fumarate 5 mg tablet 5 mg PO DAILY Qty: 90 1RF atorvastatin 40 mg tablet 40 mg PO HS Qty: 90 1RF estradiol 1 mg tablet See Rx Instructions .ROUTE .COMPLEX Qty: 90 1RF Dose Instruction: TAKE ONE TABLET BY MOUTH ONCE A DAY Rx Instructions: TAKE ONE TABLET BY MOUTH ONCE A DAY losartan 50 mg tablet 50 mg .ROUTE .COMPLEX Qty: 90 1RF Rx Instructions: 50 mg ; ondansetron 4 mg tablet,disintegrating 4 mg PO Q8H PRN (Reason: nausea and vomiting) Qty: 30 1RF Referrals Follow up/Referrals: Demetrius Pitt PA [Primary Care Provider, Medical] - See instructions Print Language Print Language: Thai Discharge ED Provider: Taya Pascual General Adult HPI General Stated complaint: A/O 04-28 1600 Cut left hand knife Time Seen by Provider: 04/28/25 16:12 History of Present Illness HPI narrative: This patient is a 50-year-old female with a history of obesity, Genny's, hypertension, tobacco dependence, migraines, hyperlipidemia, anxiety, ADHD, COPD presenting to the emergency department for evaluation with concern her body has gone crazy. Patient is alert, oriented, and conversational but is having generalized body tremors, eye fluttering, frequent bleeding. Patient states that she was feeling fine with nothing out of the ordinary until today, when she states that her body started going crazy, feeling weird and shaking all over. She arrives by EMS who noted tremulousness en route, but they state the patient was alert and conversational the entire time. They noted she was afebrile with reassuring vitals. They administered IM Versed and a bolus of IV fluids without good improvement in her symptoms. Patient states that nothing like this is ever happened before. Her only complaint aside from the tremulousness is headache. She denies any recent medication changes, fevers, chills, infectious symptoms, traumatic injury, or other concerns. Related Data Home Medications ?Medication ?Instructions ?Recorded ?Confirmed buprenorphine 8 mg-naloxone 2 mg 1 tab sublingual DUNG Y 12/30/24 03/26/25 sublingual tablet Previous Rx's ?Medication ?Instructions ?Recorded hydrochlorothiazide 25 mg tablet 25 mg PO DAILY #90 ta bs 01/03/25 ubrogepant 50 mg tablet (Ubrelvy) 50 mg PO ONCE PRN mi graine #90 tabs 01/03/25 famotidine 20 mg tablet 20 mg PO HS For GI protectio n 01/18/25 while on NSAID #30 tabs naproxen 500 mg tablet 500 mg PO BID PRN pain in fe et #60 01/18/25 tabs trazodone 50 mg tablet 50 mg PO HS #90 tabs 5 atorvastatin 40 mg tablet 40 mg PO HS #90 tabs 5 bisoprolol fumarate 5 mg tablet 5 mg PO DAILY BP #90 t abs 01/26/25 estradiol 1 mg tablet See Rx Instructions .Route 0 01/26/25 .COMPLEX #90 tabs losartan 50 mg tablet 50 mg .Route .COMPLEX #90 ta bs 01/26/25 ondansetron 4 mg disintegrating 4 mg PO Q8H PRN nausea and 02/13/25 tablet vomiting #30 tabs dextroamphetamine-amphetamine 20 20 mg PO BID #60 tabs 03/26/25 mg tablet (Adderall) escitalopram oxalate 10 mg tablet 10 mg PO DAILY #30 t abs 03/26/25 (Lexapro) Allergies Allergy/AdvReac Type Severity Reaction Status Date / Time Penicillins (PENICILLINS) Allergy Unknown Unknown Verified 04/28/25 16:26 allergy reaction buspirone (From BuSpar) Allergy Unknown Verified 04/28/25 16:26 allergy reaction sumatriptan (From Imitrex) AdvReac Mild Unknown Verified 04/28/25 16:26 allergy reaction [facility] Disclaimer: The information contained in this section may have been updated after the patient was seen, as this information can be updated by other users. Medical History Sinusitis Sinusitis Acute bronchitis Asthma exacerbation in COPD Viral syndrome Gastroenteritis Exposure to COVID-19 virus Corneal abrasion Sinusitis Parotitis, acute Athlete's foot Lymphadenopathy Bronchitis Influenza Right lateral epicondylitis Upper respiratory infection, viral ADD (attention deficit disorder) Tuberculosis screening Vomiting Viral pharyngitis Nausea Pharyngitis Sinusitis Urinary tract infection Kidney stone COPD (chronic obstructive pulmonary disease) History of anemia HLD (hyperlipidemia) Epidermal cyst of ear Migraine Tobacco dependence syndrome Family history of heart disease Dyspnea Chest pain High blood pressure Surgical History History of bilateral carpal tunnel release History of appendectomy History of cholecystectomy History of hysterectomy History of section Family History Father Family history of myocardial infarction Other Family history of cancer Family history of hypertension Social History Smoking Status: Current every day smoker tobacco type: cigarettes packs per day: 2 second hand exposure: Yes alcohol intake: current substance use type: former substance user and amphetamines current occupational status: employed Travel in the last 8 weeks?: None housing: house current occupational exposures/hazards: No Other Medical History Have you received the Flu Vaccine for this season: No Have you received the Pneumonia Vaccine: No ROS Obtained: Yes All systems reviewed & no additional complaints except as documented Physical Exam General General appearance: alert Comment: Generalized tremulousness, head shaking, bleeding frequently, eye rolling. Alert, oriented, conversational Head Head exam: atraumatic and normocephalic Eye Eye exam: Present normal appearance, PERRL and EOMI ENT ENT exam: Present normal exam, normal oropharynx, mucous membranes moist and normal external ear exam Neck Neck exam: Present normal inspection, full ROM and trachea midline; Absent tenderness Chest Chest inspection: Present normal inspection and symmetric chest wall rise; Absent tenderness Respiratory Respiratory exam: Present normal lung sounds bilaterally; Absent respiratory distress, wheezes, stridor or accessory muscle use Cardiovascular Cardiovascular exam: Present regular rate and normal rhythm Abdominal Exam Abdominal exam: Present soft; Absent distention, tenderness or guarding Extremities Exam Extremities exam: Present normal inspection, full ROM and normal capillary refill; Absent tenderness or edema Back Exam Back exam: Present normal inspection and full ROM; Absent tenderness Neurological Exam Neurological exam: Present alert, oriented X3 and other (Tremulousness as above, difficult to tell whether she has clonus in her lower extremities versus involuntary movements versus rigidity. No obvious focal deficits) Psychiatric Psychiatric exam: Present normal affect and normal mood Skin Skin exam: Present warm and dry Medical Decision Making Medical Records Medical records reviewed: Yes I reviewed the patient's medical records. Screening: Per USPSTF and CDC recommendations, given the prevalence of disease in our region, it is our hospital?s policy to screen for HIV and viral Hepatitis for all patients aged 18 and over and those with ongoing risk factors. Jeffry Inquiry Pt receiving controlled substance: No Lab Data Lab results reviewed: Yes I reviewed the patient's lab results. Medical Decision Narrative: In summary, this patient is a 50-year-old female presenting to the Emergency Department for evaluation of tremulousness and shaking all over, stating her body has gone crazy. Differential diagnoses considered include but are not limited to serotonin syndrome, extraparametal effects from dopaminergic medications, seizure, complex migraine, PNES, electrolyte derangements among others. Ruling out the most morbid conditions drove assessment. It should be noted patient's history includes obesity, generalized anxiety disorder, major depressive disorder, ADHD, hypothyroidism, hypertension, tobacco abuse, hyperlipidemia which may or may not be at goal therapy. This complicates all aspects of care by increasing patient's risk for morbidity. I reviewed patient's past medical records and noted prior evaluations by behavioral health as well as by PCP for maintenance of health. She is on multiple medications that could potentially have serotonergic/dopaminergic effects including buprenorphine, Adderall, Lexapro, trazodone. On exam, patient has generalized tremulousness, eye fluttering, involuntary head movements. I do not feel that she likely has true seizure activity at this time, as she is alert and oriented. Given that she has generalized body shaking, I would not expect that she would be able to converse and verbally res pond if she were truly having seizure activity. She is afebrile and nontoxic- appearing with reassuring vitals on cardiac telemetry. Workup included lab evaluation to evaluate for infectious, metabolic, cardiac derangements as well as EKG, CT head without contrast, CT angiogram head and neck. I administered IV Valium and a bolus of IV fluids to assess for symptomatic improvement. I independently interpreted [] prior to the radiologist read and noted []. Please see their read for final interpretation. Labs were obtained that demonstrated []. On reassessment, patient had [] improvement after administration of []. At this time, patient was deemed to be appropriate for []. I had an interactive discussion with [] who advised []. The patient was given instructions for close outpatient follow-up, very strict return precautions, and the patient was discharged in stable condition with prescriptions for []. It should be noted that social factors including [] complicates care. We discu ssed [].
[2025-04-28 16:30] VITALS: BP 136/94; PULSE 78; O2SAT 98
--- OUTSIDE RECORDS SUMMARY | 2025-04-28 16:34 | XMS_ITS | Clinical Summary ---
Author Organization [facility] Address [address] [place] [address] Phone Care Team Providers Care Benefits Manager Name Role Phone Unavailable Primary Care Provider Unavailabl e Social History Tobacco Use Types Packs/Day Years Used Date Smoking Tobacco: Never Assessed Comments Unknown Sex and Gender Information Value Date Recorded Sex Assigned at Not on file Legal Sex Female 11:41 AM EDT Gender Identity Not on file Sexual Orientation Not on file Plan of Treatment Health Maintenance Due Date Last Done Comments Annual Wellness Exam 01/28/1979 DTaP/TDaP/Td (1 - Tdap) 01/28/1995 Hepatitis B Vaccine (1 of 3 - 19+ 3-dose series) 01/28/1995 Cologuard 01/28/2021 Colon Cancer Screening 01/28/2021 Colonoscopy 01/28/2021 FIT 01/28/2021 Sigmoidoscopy 01/28/2021 Virtual Colonography 01/28/2021 COVID-19 Vaccine (1 - 2023-2 5 season) 2024 Influenza Vaccine (#1) 2025 Meningococcal B Vaccine Aged Out No l onger eligible based on patient's age to complete this topic Pneumococcal Vaccine 0-49 Aged Out No longer eligible based on patient's age to complete this topic
--- OUTSIDE RECORDS SUMMARY | 2025-04-28 16:34 | XMS_ITS | Clinical Summary ---
Author Organization [facility] Address [address] [place] [address] Care Team Providers Care Pharmacogeneticist Name Role Phone Unavailable Primary Care Provider Unavailabl e Social History Tobacco Use Types Packs/Day Years Used Date Smoking Tobacco: Never Assessed Comments Unknown Sex and Gender Information Value Date Recorded Sex Assigned at Not on file Legal Sex Female 7:38 PM EDT Gender Identity Not on file Sexual Orientation Not on file Last Filed Vital Signs Vital Sign Reading Time Taken Comments Blood Pressure 122/79 04/07/2023 11:15 AM EDT Pulse - - Temperature - - Respiratory Rate - - Oxygen Saturation - - Inhaled Oxygen Concentration - - Weight 73.5 kg (162 lb) 04/07/2023 11:15 AM EDT Height 162.6 cm (5' 4 ) 04/07/2023 11:15 AM EDT Body Mass Index 27.81 04/07/2023 11:15 AM EDT Plan of Treatment Health Maintenance Due Date Last Done Comments [facility]-Depression Screening 1976 [facility]-Infant/Child/Adol SDOH Screenings 1975 [facility]- SDOH Screenings 01/28/1994 [facility]-Adult SDOH Screenings 01/28/1994 [facility]-Hepatitis B Vaccines (1 of 3 - 19+ 3-dose series) 01/28/1995 [facility]-Pap Smear 01/28/1997 [facility]-Cervical Cancer Screening 01/28/2006 [facility]-HPV/Cotest 01/28/2006 CT Colonography 01/28/2021 Colonoscopy 01/28/2021 FIT-DNA 01/28/2021 FIT 01/28/2021 FOBT 01/28/2021 Sigmoidoscopy 01/28/2021 [facility]-Colorectal Cancer Screening 01/28/2021 [id number] Vaccine (2 - 20 24-25 season) 2024 01/08/2021 [facility]-Influenza Vaccine (#1) 2025 [facility]-Zoster Vaccines (1 of 2) 01/28/2026 [facility]-DTaP,Tdap,and Td Vaccine s (2 - Td or Tdap) 04/22/2026 04/22/2016 [facility]-Hepatitis A Vaccines Aged Out 10/01/2018 No longer eligible based on patient's age to complete this topic HPV Vaccines Aged Out No longer eligi ble based on patient's age to complete this topic [facility]-HIB Vaccines Aged Out No longer e ligible based on patient's age to complete this topic [facility]-IPV Vaccines Aged Out No longer e ligible based on patient's age to complete this topic [facility]-Pneumococcal Vaccine: Pediatrics (0 to 5 Years) and At-Risk Patients (6 to 49 Years) Aged Out No long er eligible based on patient's age to complete this topic [facility]-Rotavirus Vaccines Aged Out No lo nger eligible based on patient's age to complete this topic Insurance [employer] [facility] MEDICAID
--- OUTSIDE RECORDS SUMMARY | 2025-04-28 16:34 | XMS_ITS | Continuity of Care Document ---
Author Organization [facility] Address [address] [place] [address] Care Team Providers Care Medical Billing Associate Name Role Phone MATIAS LAKHANI Primary Care Provider Assessment No assessment recorded. Plan of Treatment Reminders Order Date Submit Date Provider Last Modified By Organization Details Last Modified Time Details Appointments Medicatio n Managemen t 30 2024 03:00P LESLIE ANGLIN Not available Not available Not available Medicatio n Managemen t 30 2024 03:30P LESLIE ANGLIN Not available Not available Not available Establish ed Visit 30 min 2025 08:00A M ALIYAH WU Not available Not available Not available Lab urinalysi s, dipstick 2024 025 tpardini [facility], [address] [place], [address], 04/16/2025 08:26:10 lipid panel, serum 2024 025 [facility] (Laboratory), [address] [place] [address] [place], [address], 04/16/2025 13:28:59 Referral None recorded. Procedures None recorded. Surgeries None recorded. Imaging None recorded. Medication Orders hydrochlo rothiazid e 25 mg tablet 2024 025 [facility], [address], [address], [place], [address], 04/16/2025 08:32:34 Ubrelvy 50 mg tablet 2024 025 [facility], [address] [place] [address], [place] [address], [place], [address], 04/16/2025 08:32:32 bisoprolo l fumarate 5 mg tablet 2024 025 [facility], [address] [place] [address], [address], [address], 04/16/2025 08:32:35 losartan 50 mg tablet 2024 025 [facility], [address] [place] [address], [address], 04/16/2025 08:32:29 atorvasta tin 40 mg tablet 2024 025 [facility], [address] [place] [address], [address], 04/16/2025 08:32:31 Patient TargetsNo targets recorded. Patient InstructionsNo instructions recorded. Reason for Referral None Reported. Results Created Date Observation Date Name Description Value Unit Range Abnormal Flag Note LastModifiedBy Organization Detail LastModifiedTime 04/16/2004/16/2025 LIPID PANEL triglyceride 112 mg/dL 20-200 [facility] (COUNT INCLUDES THE [facility] ) has set the follo wing guide lines for Fasti ng Trigl yceri cornelius: CATHY L: <150 mg/dL BORDE RLINE HIGH: 150 - 199 mg/dL HIGH: 200 - 499 mg/dL VERY HIGH: > or =500 mg/dL Not Available [facility] (Lab Registration) [address], [place], [address], 04/16/2025 13:28:59 04/16/20 25 04/16/2025 LIPID PANEL cholesterol 128 mg/dL 0-200 [facility] (COUNT INCLUDES THE [facility] ) has set the follo wing guide lines for Fasti ng Mena stero l: CHARANJIT ABLE: <200 mg/dL BORDE RLINE HIGH: 200 - 239 mg/dL HIGH: > or =240 mg/dL Not Available [facility] (Lab Registration) [address], [place], [address], 04/16/2025 13:28:59 04/16/20 25 04/16/2025 LIPID PANEL HDL cholesterol 42 mg/dL 60- low [facility] (COUNT INCLUDES THE [facility] ) has set the follo wing guide lines for Fasti ng HDL Mena stero l: LOW HDL: <40 mg/dL CATHY L: 40 - 60 mg/dL CHARANJIT ABLE: >60 mg/dL Not Available [facility] (Lab Registration) [address] [place], [address], 04/16/2025 13:28:59 04/16/20 25 04/16/2025 LIPID PANEL LDL calculated 64 mg/dL 100- low [facility] (COUNT INCLUDES THE [facility] ) has set the follo wing guide lines for Fasti ng LDL Mena stero l: OPTIM AL: < 100 mg/dL LOW RISK: 100 - 129 mg/dL BORDE RLINE HIGH: 130 - 159 mg/dL HIGH: 160 - 189 mg/dL VERY HIGH: > or = 190 mg/dL Not Available [facility] (Lab Registration) [address], [place], [address], 04/16/2025 13:28:59 04/16/20 25 04/16/2025 LIPID PANEL chol/HDL ratio 3 -5 Not Available [facility] (Lab Registration) [address] [place], [address], 04/16/2025 13:28:59 04/16/20 25 04/16/2025 LIPID PANEL note Unles s other underwood noted testi ng perfo rmed at: [facility] [address] [place] [address] [phone] Mario villa MD CLIA: [id number] Not Available [facility] (Lab Registration) [address] [place], [address], 04/16/2025 13:28:59 04/16/20 25 04/16/2025 urina lysis , dipst ick Leukocytes (reference range) negati ve Not Available [address] [place], [address], 04/16/2025 08:18:48 04/16/20 25 04/16/2025 urina lysis , dipst ick Nitrite (reference range:) negati ve Not Available [address] [place], [address], 04/16/2025 08:18:48 04/16/20 25 04/16/2025 urina lysis , dipst ick Urobilinogen (reference range) 0.2 Not Available [address] [place], [address], 04/16/2025 08:18:48 04/16/20 25 04/16/2025 urina lysis , dipst ick Protein (reference range) negati ve Not Available [address] [place], [address], 04/16/2025 08:18:48 04/16/20 25 04/16/2025 urina lysis , dipst ick pH (reference range 5-8.5) 5.5 Not Available [address] [place], [address], 04/16/2025 08:18:48 04/16/20 25 04/16/2025 urina lysis , dipst ick Blood (reference range:) small Not Available [address] [place], [address], 04/16/2025 08:18:48 04/16/20 25 04/16/2025 urina lysis , dipst ick Specific Antler (reference range) 1.025 Not Available [address] [place], [address], 04/16/2025 08:18:48 04/16/20 25 04/16/2025 urina lysis , dipst ick Ketone (reference range) negati ve Not Available [address] [place], [address], 04/16/2025 08:18:48 04/16/20 25 04/16/2025 urina lysis , dipst ick Bilirubin (reference range) negati ve Not Available [address] [place], [address], 04/16/2025 08:18:48 04/16/20 25 04/16/2025 urina lysis , dipst ick Glucose (reference range) negati ve Not Available [address] [place], [address], 04/16/2025 08:18:48 04/16/2004/16/2025 urina lysis , dipst ick Color (reference range: yellow-brown ) Yellow Not Available [address] [place], [address], 04/16/2025 08:18:48 Result Notes None recorded. Problems Name Problem SNOMED Code Status Onset Date Resolution Date Notes Provider Name and Address Organization Details Recorded Time Essential hypertension 07075192 Active 2024 Dmitry Davi null, [place] - [facility] - [place] & [place] 5 08:31:47 Attention deficit hyperactivity disorder 984543862 Active 2024 Dmitry Tomlinson null, [place] - [facility] [place] [facility] [place] 5 08:31:56 Hyperlipidemia 31472980 Active 2024 Dmitry Tomlinson null, [place] - [facility] - [place] [facility] [place] 5 08:32:10 Migraine 68416292 Active 2024 [place] Pantoja - [facility] & [place] 08:32:35 Insomnia 618739017 Active 2024 [place] Pantoja - [facility] - [place] [facility] [place] 08:33:10 Problem Notes None recorded. Procedures Surgical History Date Name Laterality Status Provider Name and Address Organization Details Recorded Time 10/04/19 Carpal Tunnel Surgery completed Dmitry FARRELL - [facility] & [place] 03/15/2025 08:35:36 03/15/20 appendectomy completed Dmitry FARRELL - [facility] & [place] 03/15/2025 08:35:58 10/04/19 hysterectomy completed Dmitry Castro [facility] & [place] 03/15/2025 08:36:35 11/05/19 00 section completed Dmitry Castro [facility] & [place] 03/15/2025 08:36:18 10/04/18 98 Gallbladder Surgery completed Dmitry Castro [facility] & [place] 03/15/2025 08:36:53 Other completed Sandra Granadosi [place] - [facility] & [place] 04/16/2025 08:03:57 Appendectomy completed Sandra Fernandezdini [place] - [facility] & [place] 04/16/2025 08:03:57 Colonoscopy completed Sandra Fernandezdini [place] - [facility] & [place] 04/16/2025 08:03:57 Floor Director Surgery completed Sandra Fernandezdini [place] - [facility] & [place] 04/16/2025 08:03:57 Imaging Results None recorded. Procedure Notes None recorded. Medical Equipment None Reported. Allergies Allergen ID Allergen Name Allergen Category Reaction Reaction Severity Criticality Documentation Date Start Date Code Code System Note Provider Name and Address Organization Details Recorded Time 447149 Product containin g penicilli n (product) medicatio n rash Not available high 03/15/2025 88740 8001 SNOMED BUD Pantoja - [facility] - [place] [facility] [place] 08:29:45 574537 Imitrex medicatio n hallucina tions Not available high 03/15/2025 78966 3 RxNorm [place] Pantoja - [facility] & [place] 5 08:30:09 371662 buspirone medicatio n myalgias (muscle pain) Not available [facility] 03/15/2025 1827 RxNorm [place] Pantoja - [facility] & [place] 5 08:30:26 Medications Name Sig Start Date Stop Date Status Note LastModified by Organization Details LastModified Time losartan 50 mg tablet Take 1 tablet every day by oral route for 30 days. 2024 active Not Available Not Available Not Avai lable atorvastati n 40 mg tablet Take 1 tablet every day by oral route for 30 days. 2024 active Not Available Not Available Not Avai lable Adderall 20 mg tablet Take 1 tablet twice a day by oral route. active Not Available Not Available No t Available gabapentin 600 mg tablet Take 1 tablet twice a day by oral route. active Not Available Not Available No t Available trazodone 50 mg tablet Take 1 tablet every day by oral route for 30 days. 2024 active Not Available Not Available Not Avai lable meloxicam 15 mg tablet TAKE ONE TABLET BY MOUTH ONCE A DAY 03/15 completed Not Available Not Available Not Available bisoprolol fumarate 5 mg tablet Take 1 tablet every day by oral route for 30 days. 2024 active Not Available Not Available Not Avai lable estradiol 1 mg tablet TAKE 1 TABLET BY MOUTH ONCE DAILY 2024 active Not Available Not Available Not Avai lable docusate sodium 100 mg capsule TAKE 2 CAPSULES BY MOUTH ONCE A DAY NEEDED 03/15 completed Not Available Not Available Not Available hydrochloro thiazide 25 mg tablet Take 1 tablet every day by oral route for 30 days. 2024 active Not Available Not Available Not Avai lable buprenorphi ne 8 mg-naloxone 2 mg sublingual tablet DISSOLVE 1 AND 1/4 tablets UNDER THE TONGUE ONCE A DAY active Not Available Not Available No t Available Ubrelvy 50 mg tablet Take 1 tablet as needed by oral route. 2024 active Not Available Not Available Not Avai lable Vitals Date Recorded Body height Body mass index (BMI) Body weight Body temperature Oxygen saturation Oxygen saturation in Arterial blood by Pulse oximetry Heart rate Respiratory rate Systolic And Diastolic Provider Name and Address Organization Details Last Updated DateTime 165.1 cm 27.4 kg/m2 12237.3 g 97.8 [degF] 98 % 98 % 75 /min 14 /min 120/75 mm[Hg] Sandra Arnold [facility] & [place] 08:03:31 Social History Question Answer Notes LastModified by Organizat ion Details LastModified Time Tobacco Smoking Status Current Every Day Smoker Dmitry cotter, [facility] & [place] 03/15/2025 08:34:28 Do You Have An Advance Directive? No [email or web address] Information not available 03/15/2025 If You Are , What Was Your Level Of Alcohol Consumption Prior To ? None [email or web address] Information not available 03/15/2025 Do You Wear A Helmet When Biking? Yes [email or web address] Information not available 03/15/2025 Are You Blind Or Do You Have Difficulty Seeing? No [email or web address] Information not available 03/15/2025 What Is Your Level Of Caffeine Consumption? Occasional [email or web address] Information not available 03/15/2025 In The 14 Days Before Symptom Onset, Have You Had Close Contact With A Laboratory-confir med COVID-19 While That Case Was Ill? No Information not available 03/15/2025 In The 14 Days Before Symptom Onset, Have You Had Close Contact With A Person Who Is Under Investigation For COVID-19 While That Person Was Ill? No [email or web address] Information not available 03/15/2025 Have You Been To An Area Known To Be High Risk For COVID-19? No [email or web address] Information not available 03/15/2025 Are You Deaf Or Do You Have Serious Difficulty Hearing? No [email or web address] Information not available 03/15/2025 What Type Of Diet Are You Following? REGULAR [email or web address] Information not available 03/15/2025 Have You Processed Blood Or Body Fluids From An Ebola Virus Disease Patient Without Appropriate PPE? No [email or web address] Information not available 03/15/2025 Do You Reside In Or Have You Traveled To An Area Where Ebola Virus Transmission Is Active? No [email or web address] Information not available 03/15/2025 Have There Been Any Changes To Your Family Or Social Situation? No [email or web address] Information no t available 03/15/2025 What Is The Fluoride Status Of Your Home? Unknown Information not available 03/15/2025 Are There Any Guns Present In Your Home? No [email or web address] Information not available 03/15/2025 Have You Recently Or Are You Planning To Travel To An Area With Zika Virus? No Information not available 03/15/2025 Do You Use Insect Repellent Routinely? Yes [email or web address] Information not available 03/15/2025 Do You Feel Safe At Home? Yes [email or web address] Information not available 03/15/2025 Do You Have A Medical Power Of Production Sanitizer? No [email or web address] Information not available 03/15/2025 What Was The Date Of Your Most Recent Tobacco Screening? 03/15/2025 [email or web address] Information not available 03/15/2025 What Is Your Current Pack Years? 10-19packyears [email or web address] Information not available 03/15/2025 Do You Have Any Pets? No [email or web address] Information not available 03/15/2025 Do You Use Your Seat Belt Or Car Seat Routinely? Yes [email or web address] Information not available 03/15/2025 Do You Have Smoke And Carbon Monoxide Detectors In Your Home? Yes [email or web address] Information not available 03/15/2025 Are You Passively Exposed To Smoke? No [email or web address] Information no t available 03/15/2025 How Much Tobacco Do You Smoke? 1 PPD [email or web address] Information not available 03/15/2025 Do You Use Sunscreen Routinely? Yes [email or web address] Information not available 03/15/2025 Has Tobacco Cessation Counseling Been Provided? Yes [email or web address] Information not available 03/15/2025 On What Date Was Tobacco Cessation Counseling Provided? 03/15/2025 [email or web address] Information not available 03/15/2025 How Many Years Have You Smoked Tobacco? 30 [email or web address] Information not available 03/15/2025 Do You Have Difficulty Walking Or Climbing Stairs? No [email or web address] Information not available 03/15/2025 Are You Currently In School? No [email or web address] Information not available 03/15/2025 Sex: Female Functional Status Question Answer Note LastModified by Organizat ion Details LastModified Time Do you use any illicit or recreational drugs? No [email or web address] Information not available 03/15/2025 Do you or have you ever used any other forms of tobacco or nicotine? No [email or web address] Information not available 03/15/2025 What is your level of alcohol consumption? None [email or web address] Information not available 03/15/2025 Are you currently employed? Yes [email or web address] Information not available 03/15/2025 Do you have transportation difficulties? No [email or web address] Information not available 03/15/2025 Are you able to walk? YESWOREST [email or web address] Information not available 03/15/2025 Do you have difficulty doing errands alone? No [email or web address] Information not available 03/15/2025 Are you able to care for yourself independently? Yes [email or web address] Information not available 03/15/2025 Do you have difficulty dressing, bathing, grooming, or toileting? No Information not available 03/15/2025 What is your exercise level? None [email or web address] Information not available 03/15/2025 Mental Status Question Answer Note LastModified by Organizat ion Details LastModified Time Do you feel stressed (tense, restless, nervous, or anxious, or unable to sleep at night)? [id number] [email or web address] Information not available 04/16/2025 Do you have difficulty concentrating, remembering or making decisions? No [email or web address] Information no t available 03/15/2025 Family History Relationship Description Onset Age of this Age Resolved Age Notes LastModified by Organization Details LastModified Time Unspecified Relation Allergy CHART_MERGE Not available 03/15 11:10:17 Unspecified Relation Arthritis [email or web address] Not available 04/03 07:52:14 Unspecified Relation Malignant tumor of stomach [email or web address] Not available 04/16 07:52:14 Unspecified Relation Hyperlipidem ia [email or web address] Not available 04/16 07:52:14 Unspecified Relation Essential hypertension [email or web address] Not available 07:52:14 Unspecified Relation Migraine [email or web address] Not available 04/16 07:52:14 Unspecified Relation Kidney stone [email or web address] Not available 0 04/16/2025 07:52:14 Unspecified Relation Ischemic stroke [email or web address] Not available 04/16 07:52:14 Medical History Condition Response Osteoporosis/Osteopenia Y Obesity Y Substance Abuse Y High Cholesterol Y Psychiatric/Mental Health Condition Y Headaches Y Back Problems Y Hypertension Y Gynecological History Statement/Question Response Menses Monthly N Abnormal Pap N Date of LMP 10/04/2000 Sexually Active? N Obstetrics History GPAL:G 0 P 0 0 0 0 Past Encounters Encounter ID Performer Location Encounter Start Date Encounter Closed Date Diagnosis/Indication Diagnosis SNOMED-CT Code Diagnosis ICD10 Code Diagnosis Note [id number] ALIYAH WU [facility] [address] [place] [address] 04/16/2025 07:51:40 04/16/2025 16:17:39 Hyperlipidemia 55911967 E78.5 awaiting lab resultsMed ication refillTake medication as prescribed Essential hypertension 62658227 I10 negative UAMedicati on refillTake medication as directedBP is compliant; continue current medication regimen Edema of l ower extremity 834108645 R60.0 reports longstandi ng history of peripheral edemaTake medication as prescribed Medication refill Migraine 38323954 G43.90 9 reports success with UbrelvyNo current symptomsMe dication refillTake medication as prescribed Follow-up with office if symptoms worsen Health Concerns Section Related Observation LastModified by Organization Detai ls LastModified Time None Recorded Concern Status LastModified by Organization Details LastModified Time None Recorded Payers Encounter Date Sequence Insurance Name Policy Number Policy Torres Covered Member ID Torres Member ID Guarantor Name 04/16/2025 1 [facility] (MEDICAID HMO) Arleth Whitehead [id number] Geni Whitehead Notes Date Note Type Note Provider Name and Address Organization Details Recorded Time 04/16/2025 text/html ROS as noted in the HPI 50-year-old female with past medical history of ADHD, hypertension, and hyperlipidemia presents to the clinic for medication refill and a 1 month follow-up since establishment of care. Patient has no new complaints or concerns. Patient reports that she has not been contacted by GI to schedule a colonoscopy or has been contacted by imaging to get a mammogram scheduled. Reports that she is fasting today. Reports no new concerns with medication. Denies chest pain, shortness of breath, abdominal pain, headaches, vision abnormalities, nausea, vomiting, and fever. ALIYAH WU [address] [place] [address], [place], [address], [facility] & [place] 04/16/2025 08:30:04 OBGyn Episode No OBEpisode recorded.
--- OUTSIDE RECORDS SUMMARY | 2025-04-28 16:34 | XMS_ITS | Continuity of Care Document ---
Author Organization [facility] Address [address] [address] Care Team Providers Care Hand Baseball Sewer Name Role Phone MATIAS PITT Primary Care Provider Assessment No assessment recorded. Plan of Treatment Reminders Order Date Submit Date Provider Last Modified By Organization Details Last Modified Time Details Appointments Medicatio n Managemen t 30 2024 03:00P HELEN ANGLINP Not available Not available Not available Medicatio n Managemen t 30 2024 03:30P ELEUTERIO ANGLINHNShona Not available Not available Not available Establish ed Visit 30 min 2025 08:00A M ALIYAH WU Not available Not available Not available Lab CBC w/ auto diff 2024 025 [facility] (Laboratory), [address] [place], [address], 03/15/2025 14:29:20 iron + TIBC + ferritin, serum [address] (Laboratory), [address] [place], [address], 03/22/2025 09:41:17 vitamin B12 + folate, serum or blood [address] (Laboratory), [address] [place], [address], 03/22/2025 09:41:17 TSH + free T4, serum [email or web address] [place] [address] (Laboratory), [address] [place], [address], 03/22/2025 09:41:17 hemoglobi n A1C/hemog lobin total, QN, blood [email or web address] (Laboratory), [address] [place], [address], 03/22/2025 09:41:17 CMP, serum or plasma 2024 025 [facility] (Laboratory), [address] [place], [address], 03/15/2025 14:28:16 vitamin D, 25-hydrox y, total, serum [email or web address] (Laboratory), [address] [place], [address], 03/22/2025 09:41:17 Referral gastroent erologist referral - colonosco py; previousl y done 10+ years ago 2024 025 [email or web address] Ren Malagon MD, [address], [place], [address], 04/12/2025 10:07:49 behaviora health referral 2024 025 [email or web address] Jefry Moyer Pmhnp, [address] [place], [address], 03/22/2025 09:41:25 Procedures None recorded. Surgeries None recorded. Imaging MAMMO, screening , bilateral [email or web address] (Scheduling), [address] [place], [address], 03/29/2025 08:07:15 Medication Orders trazodone 50 mg tablet 2024 025 [facility], [address] [place] [address], [address], [place], [address], 03/15/2025 10:04:45 losartan 50 mg tablet [address] [place] [address], [address] [place] [address], [facility], [place], [address], 03/15/2025 10:04:48 bisoprolo l fumarate 5 mg tablet [address] [place] [address], [address] [place] [address], [facility], [place], [address], 03/15/2025 10:04:47 atorvasta tin 40 mg tablet [address] [place] [address], [address] [place] [address], [facility], [place], [address], 03/15/2025 10:04:49 hydrochlo rothiazid e 25 mg tablet [address] [place] [address], [address] [place] [address], [facility], [place], [address], 03/15/2025 10:04:51 Ubrelvy 50 mg tablet [address] [place] [address], [address] [place] [address], [facility], [place], [address], 03/15/2025 10:04:53 Patient TargetsNo targets recorded. Patient InstructionsNo instructions recorded. 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 malignant neoplasm of colon colonoscopy; previously done 10+ years ago Referring Physician: Family Ga [facility], Encounter Date: 03/15/2025 Behavioral Health Referral f or Attention deficit hyperactivity disorder Referring Physician: Matias [facility], Encounter Date: 03/15/2025 Results Created Date Observation Date Name Description Value Unit Range Abnormal Flag Note LastModifiedBy Organization Detail LastModifiedTime 03/15/20 25 03/15/2025 CBC AUTO W DIFF WBC 9.0 10 4.5-11 .5 Not Available [facility] (Lab Registration) [address] [place], [address], 03/15/2025 12:43:32 03/15/20 25 03/15/2025 CBC AUTO W DIFF RBC 4.53 10 4.25-5 .57 Not Available [facility] (Lab Registration) [address] [place], [address], 03/15/2025 12:43:32 03/15/20 25 03/15/2025 CBC AUTO W DIFF HGB 13.3 g/dL 12.0-1 5.7 Not Available [facility] (Lab Registration) [address] [place], [address], 03/15/2025 12:43:32 03/15/20 25 03/15/2025 CBC AUTO W DIFF HCT 40.0 % 36.0-4 7.0 Not Available [facility] (Lab Registration) [address] [place], [address], 03/15/2025 12:43:32 03/15/20 25 03/15/2025 CBC AUTO W DIFF MCV 88.3 fL 80-95 Not Available [facility] (Lab Registration) [address] [place], [address], 03/15/2025 12:43:32 03/15/20 25 03/15/2025 CBC AUTO W DIFF MCH 29.4 pg 27.0-3 4.0 Not Available [facility] (Lab Registration) [address] [place], [address], 03/15/2025 12:43:32 03/15/20 25 03/15/2025 CBC AUTO W DIFF MCHC 33.3 g/dL 32.0-3 6.0 Not Available [facility] (Lab Registration) [address] [place], [address], 03/15/2025 12:43:32 03/15/20 25 03/15/2025 CBC AUTO W DIFF platelet count 277 10 150-45 0 Not Available [facility] (Lab Registration) [address] [place], [address], 03/15/2025 12:43:32 03/15/20 25 03/15/2025 CBC AUTO W DIFF RDW 12.4 % 12.3-1 5.1 Not Available [facility] (Lab Registration) [address] [place], [address], 03/15/2025 12:43:32 03/15/20 25 03/15/2025 CBC AUTO W DIFF MPV 11.7 fL 7.4-10 .4 high Not Available [facility] (Lab Registration) [address] [place], [address], 03/15/2025 12:43:32 03/15/20 25 03/15/2025 CBC AUTO W DIFF granulocyte% 62.5 % 40-75 Not Available [facility] (Lab Registration) [address] [place], [address], 03/15/2025 12:43:32 03/15/20 25 03/15/2025 CBC AUTO W DIFF lymphocyte% 28.4 % 15-57 Not Available [facility] (Lab Registration) [address] [place], [address], 03/15/2025 12:43:32 03/15/20 25 03/15/2025 CBC AUTO W DIFF monocyte% 6.7 % 4.0-12 .0 Not Available [facility] (Lab Registration) [address] [place], [address], 03/15/2025 12:43:32 03/15/20 25 03/15/2025 CBC AUTO W DIFF eosinophil% 1.3 % 0.0-4. 0 Not Available [facility] (Lab Registration) [address] [place], [address], 03/15/2025 12:43:32 03/15/20 25 03/15/2025 CBC AUTO W DIFF basophil% 1.0 % 0.0-1. 0 Not Available [facility] (Lab Registration) [address] [place], [address], 03/15/2025 12:43:32 03/15/20 25 03/15/2025 CBC AUTO W DIFF immature granulocytes % 0.1 % 0.0-0. 8 Not Available [facility] (Lab Registration) [address] [place], [address], 03/15/2025 12:43:32 03/15/20 25 03/15/2025 CBC AUTO W DIFF granulocyte# 5.62 10 Not Available [facility] (Lab Registration) [address] [place], [address], 03/15/2025 12:43:32 03/15/20 25 03/15/2025 CBC AUTO W DIFF lymphocyte# 2.55 10 Not Available [facility] (Lab Registration) [address] [place], [address], 03/15/2025 12:43:32 03/15/20 25 03/15/2025 CBC AUTO W DIFF monocyte# 0.60 10 Not Available [facility] (Lab Registration) [address] [place], [address], 03/15/2025 12:43:32 03/15/20 25 03/15/2025 CBC AUTO W DIFF eosinophil# 0.12 10 Not Available [facility] (Lab Registration) [address] [place], [address], 03/15/2025 12:43:32 03/15/20 25 03/15/2025 CBC AUTO W DIFF basophil# 0.09 10 Not Available [facility] (Lab Registration) [address] [place], [address], 03/15/2025 12:43:32 03/15/20 25 03/15/2025 CBC AUTO W DIFF immature granulocytes # 0.01 10 Not Available [facility] (Lab Registration) [address] [place], [address], 03/15/2025 12:43:32 03/15/20 25 03/15/2025 CBC AUTO W DIFF manual differential NO Not Available [facility] (Lab Registration) [address] [place], [address], 03/15/2025 12:43:32 03/15/20 25 03/15/2025 CBC AUTO W DIFF note Unles s other underwood noted testi ng perfo [facility]med at: [facility] [address] [place] [address] [phone] Mario villa MD CLIA: [id number] Not Available [facility] (Lab Registration) [address] [place], [address], 03/15/2025 12:43:32 03/15/20 25 03/15/2025 HEMOG LOBIN A1C glycosylated hemoglobin A1C 5.7 % 4.5-6. 2 Not Available [facility] (Lab Registration) [address] [place], [address], 03/15/2025 12:43:37 03/15/20 25 03/15/2025 HEMOG LOBIN A1C estimated average glucose 117 mg/dL 82-131 Not Available [facility] (Lab Registration) [address] [place], [address], 03/15/2025 12:43:37 03/15/20 25 03/15/2025 HEMOG LOBIN A1C note Unles s other underwood noted testi ng perfo rmed at: [facility] [address] [place] [address] [phone] Mario villa MD CLIA: [id number] Not Available [facility] (Lab Registration) [address] [place], [address], 03/15/2025 12:43:37 03/15/20 25 03/15/2025 UA DIP ONLY NO MICRO SCOPI C color yellow yellow Not Available [facility] (Lab Registration) [address] [place], [address], 03/15/2025 13:21:13 03/15/20 25 03/15/2025 UA DIP ONLY NO MICRO SCOPI C appearance clear clear Not Available [facility] (Lab Registration) [address] [place], [address], 03/15/2025 13:21:13 03/15/20 25 03/15/2025 UA DIP ONLY NO MICRO SCOPI C glucose NORM normal Not Available [facility] (Lab Registration) [address] [place], [address], 03/15/2025 13:21:13 03/15/20 25 03/15/2025 UA DIP ONLY NO MICRO SCOPI C bilirubin NEGATI VE negati ve Not Available [facility] (Lab Registration) [address] [place], [address], 03/15/2025 13:21:13 03/15/20 25 03/15/2025 UA DIP ONLY NO MICRO SCOPI C ketone NEGATI VE mg/dL negati ve Not Available [facility] (Lab Registration) [address] [place], [address], 03/15/2025 13:21:13 03/15/20 25 03/15/2025 UA DIP ONLY NO MICRO SCOPI C specific gravity 1.005 1.005- 1.035 Not Available [facility] (Lab Registration) [address] [place], [address], 03/15/2025 13:21:13 03/15/20 25 03/15/2025 UA DIP ONLY NO MICRO SCOPI C blood 25 (1+) /mcL negati ve Not Available [facility] (Lab Registration) [address] [place], [address], 03/15/2025 13:21:13 03/15/20 25 03/15/2025 UA DIP ONLY NO MICRO SCOPI C pH 6.50 5.0-7. 5 Not Available [facility] (Lab Registration) [address] [place], [address], 03/15/2025 13:21:13 03/15/20 25 03/15/2025 UA DIP ONLY NO MICRO SCOPI C protein NEGATI VE mg/dL negati ve Not Available [facility] (Lab Registration) [address] [place], [address], 03/15/2025 13:21:13 03/15/20 25 03/15/2025 UA DIP ONLY NO MICRO SCOPI C urobilnogen NORM mg/dL normal Not Available [facility] (Lab Registration) [address] [place], [address], 03/15/2025 13:21:13 03/15/20 25 03/15/2025 UA DIP ONLY NO MICRO SCOPI C nitrite NEGATI VE negati ve Not Available [facility] (Lab Registration) [address] [place], [address], 03/15/2025 13:21:13 03/15/20 25 03/15/2025 UA DIP ONLY NO MICRO SCOPI C leukocyte esterase NEGATI VE /mcL negati ve Not Available [facility] (Lab Registration) [address] [place], [address], 03/15/2025 13:21:13 03/15/20 25 03/15/2025 UA DIP ONLY NO MICRO SCOPI C dip comment NONE Not Available [facility] (Lab Registration) [address] [place], [address], 03/15/2025 13:21:13 03/15/20 25 03/15/2025 UA DIP ONLY NO MICRO SCOPI C note Unles s other underwood noted testi ng perfo rmed at: [facility] [address] [place] [address] [phone] Mario villa MD CLIA: [id number] Not Available [facility] (Lab Registration) [address], [place], [address], 03/15/2025 13:21:13 03/15/20 25 03/15/2025 THYRO ID STIMU LATIN G HORMO NE thyroid stimulating hormone 0.66 mIU/m L 0.34-4 .80 Not Available [facility] (Lab Registration) [address], [place], [address], 03/15/2025 13:30:05 03/15/20 25 03/15/2025 THYRO ID STIMU LATIN G HORMO NE note Unles s other underwood noted testi ng perfo rmed at: [facility] [address] [place] [address] [phone] Mario villa MD CLIA: [id number] Not Available [facility] (Lab Registration) [address], [place], [address], 03/15/2025 13:30:05 03/15/20 25 03/15/2025 T4 FREE T4,free 1.08 NG/dL 0.76-1 .46 Effec tive today 013 new Refer ence Range . Not Available [facility] (Lab Registration) [address], [place], [address], 03/15/2025 13:30:06 03/15/20 25 03/15/2025 T4 FREE note Unles s other underwood noted testi ng perfo rmed at: [facility] [address] [place] [address] [phone] Mario villa MD CLIA: [id number] Not Available [facility] (Lab Registration) [address] [place], [address], 03/15/2025 13:30:06 03/15/20 25 03/15/2025 VITAM IN D TOTAL (D2+D 3) vitamin D25 (D2+D3) 62.2 NG/mL 30-100 Not Available [facility] (Lab Registration) [address] [place], [address], 03/15/2025 13:30:07 03/15/20 25 03/15/2025 VITAM IN D TOTAL (D2+D 3) note Unles s other underwood noted testi ng perfo rmed at: [facility] [address] [place] [address] [phone] Mario villa MD CLIA: [id number] Not Available [facility] (Lab Registration) [address] [place], [address], 03/15/2025 13:30:07 03/15/20 25 03/15/2025 VITAM IN B12 vitamin B12 680 pg/mL 193-98 6 Not Available [facility] (Lab Registration) [address] [place], [address], 03/15/2025 13:30:08 03/15/20 25 03/15/2025 VITAM IN B12 folate (folic acid), serum 15.4 NG/mL 8.6-58 .9 Not Available [facility] (Lab Registration) [address] [place], [address], 03/15/2025 13:30:08 03/15/20 25 03/15/2025 VITAM IN B12 note Brooke villa other underwood noted testi ng perfo rmed at: [facility] [address] [place] [address] [phone] Mario villa MD CLIA: [id number] Not Available [facility] (Lab Registration) [address] [place], [address], 03/15/2025 13:30:08 03/15/20 25 03/15/2025 COMP METAB OLIC PANEL sodium 139 mmol/ L 136-14 5 Not Available [facility] (Lab Registration) [address] [place], [address], 03/15/2025 13:30:09 03/15/20 25 03/15/2025 COMP METAB OLIC PANEL potassium 3.5 mmol/ L 3.5-5. 1 Not Available [facility] (Lab Registration) [address] [place], [address], 03/15/2025 13:30:09 03/15/20 25 03/15/2025 COMP METAB OLIC PANEL chloride 102 mmol/ L 98-107 Not Available [facility] (Lab Registration) [address] [place], [address], 03/15/2025 13:30:09 03/15/20 25 03/15/2025 COMP METAB OLIC PANEL carbon dioxide 31 mmol/ L 21-32 Not Available [facility] (Lab Registration) [address] [place], [address], 03/15/2025 13:30:09 03/15/20 25 03/15/2025 COMP METAB OLIC PANEL anion gap 6.0 Not Available [facility] (Lab Registration) [address] [place], [address], 03/15/2025 13:30:09 03/15/20 25 03/15/2025 COMP METAB OLIC PANEL glucose 98 mg/dL 70-110 Not Available [facility] (Lab Registration) [address] [place], [address], 03/15/2025 13:30:09 03/15/20 25 03/15/2025 COMP METAB OLIC PANEL blood urea nitrogen 13 mg/dL 7-18 Not Available [facility] (Lab Registration) [address] [place], [address], 03/15/2025 13:30:09 03/15/20 25 03/15/2025 COMP METAB OLIC PANEL creatinine 1.1 mg/dL 0.6-1. 0 high Not Available [facility] (Lab Registration) [address], [place], [address], 03/15/2025 13:30:09 03/15/20 25 03/15/2025 COMP METAB OLIC PANEL BUN/creatini ne ratio 11.8 9-21 Not Available [facility] (Lab Registration) [address], [place], [address], 03/15/2025 13:30:09 03/15/20 25 03/15/2025 COMP METAB OLIC PANEL estimated glom filtration rate 62 mL/mi n >60- GFR LIMIT ATION : The eGFR equat ion CKD-E PI 2020 is not appli cable for pedia tric patie nts or great er than 90 years of age. The follo wing condi tions may alter the GFR resul t: extre mes in body size, malnu triti on or obesi ty, skele dimas muscl e disea se, parap legia or quadr ipleg ia, veget alexandru diet or rapid ly cooper ing kiney funct ion. Not Available [facility] (Lab Registration) [address], [place], [address], 03/15/2025 13:30:09 03/15/20 25 03/15/2025 COMP METAB OLIC PANEL osmolality (calculated) 289 mOsm/ kg 275-30 1 OSMOL ALITY IS A CALCU LATIO N UTILI ZING THE SERUM /PLAS MA SODIU M, GLUCO SE AND UREA NITRO GEN (BUN) LEVEL S. FOR THE MOST ACCUR ATE RESUL T A MEASU RED SERUM OSMOL ALITY IS SUGGE STED. Not Available [facility] (Lab Registration) [address], [place], [address], 03/15/2025 13:30:09 03/15/20 25 03/15/2025 COMP METAB OLIC PANEL total protein 7.7 g/dL 6.4-8. 2 Not Available [facility] (Lab Registration) [address] [place], [address], 03/15/2025 13:30:09 03/15/20 25 03/15/2025 COMP METAB OLIC PANEL albumin 4.1 g/dL 3.4-5. 0 Not Available [facility] (Lab Registration) [address] [place], [address], 03/15/2025 13:30:09 03/15/20 25 03/15/2025 COMP METAB OLIC PANEL calcium 9.5 mg/dL 8.5-10 .1 Not Available [facility] (Lab Registration) [address] [place], [address], 03/15/2025 13:30:09 03/15/20 25 03/15/2025 COMP METAB OLIC PANEL corrected calcium 9.4 mg/dL 8.5-10 .1 Not Available [facility] (Lab Registration) [address] [place], [address], 03/15/2025 13:30:09 03/15/20 25 03/15/2025 COMP METAB OLIC PANEL bilirubin total 0.2 mg/dL 0.4-1. 5 low Not Available [facility] (Lab Registration) [address] [place], [address], 03/15/2025 13:30:09 03/15/20 25 03/15/2025 COMP METAB OLIC PANEL AST (SGOT) 25 U/L 15-37 Not Available [facility] (Lab Registration) [address] [place], [address], 03/15/2025 13:30:09 03/15/20 25 03/15/2025 COMP METAB OLIC PANEL ALT (SGPT) 25 U/L 12-78 Not Available [facility] (Lab Registration) [address] [place], [address], 03/15/2025 13:30:09 03/15/20 25 03/15/2025 COMP METAB OLIC PANEL alk phosphatase 81 U/L 50-120 Not Available [facility] (Lab Registration) [address] [place], [address], 03/15/2025 13:30:09 03/15/20 25 03/15/2025 COMP METAB OLIC PANEL note Unles s other underwood noted testi ng perfo rmed at: [facility] [address] [place] [address] [phone] Mario villa MD CLIA: [id number] Not Available [facility] (Lab Registration) [address] [place], [address], 03/15/2025 13:30:09 03/15/20 25 03/15/2025 TJ TIN ferritin 296 NG/mL 8-388 Not Available [facility] (Lab Registration) [address] [place], [address], 03/15/2025 13:30:09 03/15/20 25 03/15/2025 TJ TIN note Unles s other underwood noted testi ng perfo rmed at: [facility] [address] [place] [address] [phone] Mario villa MD CLIA: [id number] Not Available [facility] (Lab Registration) [address] [place], [address], 03/15/2025 13:30:09 03/15/20 25 03/15/2025 IRON/ TIBC/ %SAT (IRON STUDI ES) iron 104 ug/dL 35-150 Not Available [facility] (Lab Registration) [address] [place], [address], 03/15/2025 15:38:04 03/15/20 25 03/15/2025 IRON/ TIBC/ %SAT (IRON STUDI ES) total iron bind cap (TIBC) 318 ug/dL 250-45 0 Not Available [facility] (Lab Registration) [address] [place], [address], 03/15/2025 15:38:04 03/15/20 25 03/15/2025 IRON/ TIBC/ %SAT (IRON STUDI ES) % saturation 33 % 15-55 Not Available [facility] (Lab Registration) [address] [place], [address], 03/15/2025 15:38:04 03/15/20 25 03/15/2025 IRON/ TIBC/ %SAT (IRON STUDI ES) note Unles s other underwood noted testi ng perfo rmed at: [facility] [place] [address] [phone] Mario villa MD CLIA: [id number] Not Available [facility] (Lab Registration) [address] [place], [address], 03/15/2025 15:38:04 Result Notes None recorded. Problems Name Problem SNOMED Code Status Onset Date Resolution Date Notes Provider Name and Address Organization Details Recorded Time Essential hypertension 97508003 Active 2024 Dmitry Tomlinson null, [place] - [facility] [place] 5 08:31:47 Attention deficit hyperactivity disorder 067251773 Active 2024 Dmitry Tom[place]inson null, [place] [facility] [place] 5 08:31:56 Hyperlipidemia 37790484 Active 2024 Dmitry Tomlinson null, [place] - [place] [facility] [place] 5 08:32:10 Migraine 82720758 Active 2024 Dmitry Toml[place] null, [place] - [place] [facility] [place] 5 08:32:35 Insomnia 807447461 Active 2024 Dmitry Tomlinson null, [place] - [place] - [place] [facility] [place] 5 08:33:10 Problem Notes None recorded. Procedures Surgical History Date Name Laterality Status Provider Name and Address Organization Details Recorded Time 10/04/19 12 Carpal Tunnel Surgery completed Dmitry Tomlinson [place] - [facility] [place] 03/15/2025 08:35:36 03/15/20 appendectomy completed Dmitry Davi REYES [facility] [place] 03/15/2025 08:35:58 10/04/19 01 hysterectomy completed Dmitry REYES [facility] [place] 03/15/2025 08:36:35 11/05/19 00 section completed Dmitry REYES [facility] [place] 03/15/2025 08:36:18 10/04/18 98 Gallbladder Surgery completed Dmitry REYES [facility] [place] 03/15/2025 08:36:53 Other completed Sandra REYES [facility] [place] 04/16/2025 08:03:57 Appendectomy completed Sandramookie FARRELL ERIC [facility] [place] 04/16/2025 08:03:57 Colonoscopy completed Sandramookie FARRELL ERIC [facility] [place] 04/16/2025 08:03:57 Funeral Service Apprentice Surgery completed SandraLasha REYES [facility] [place] 04/16/2025 08:03:57 Imaging Results None recorded. Procedure Notes None recorded. Medical Equipment None Reported. Allergies Allergen ID Allergen Name Allergen Category Reaction Reaction Severity Criticality Documentation Date Start Date Code Code System Note Provider Name and Address Organization Details Recorded Time 069593 Product containin g penicilli n (product) medicatio n rash Not available [facility] 03/15/2025 06535 8001 SNOMED [facility]mitry cotter [facility] [place] 5 08:29:45 246568 Imitrex medicatio n hallucina tions Not available [facility] 03/15/2025 84823 3 RxNorm BUD Pantoja [facility] [place] 5 08:30:09 216571 buspirone medicatio n myalgias (muscle pain) Not available [facility] 03/15/2025 1827 RxNorm Dmitry cotter, BUD Castro SOLANGE [facility] [place] 5 08:30:26 Medications Name Sig Start Date [...] and Address Organization Details Last Updated DateTime 5 165.1 cm 28.5 kg/m2 16598.3 g 98.7 [degF] 99 % 99 % 74 /min 18 /min 111/74 mm[Hg] Dmitry REYES [facility] [place] 5 08:28:49 Social History Question Answer Notes LastModified by Organizat ion Details LastModified Time Tobacco Smoking Status Current Every Day Smoker [facility] [place] [facility] 03/15/2025 08:34:28 Do You Have An Advance Directive? No [email or web address] Information not available 03/15/2025 If You Are , What Was Your Level Of Alcohol Consumption Prior To ? None [email or web address] Information not available 03/15/2025 Do You Wear A Helmet When Biking? Yes [email or web address] Information not available 03/15/2025 Are You Blind Or Do You Have Difficulty Seeing? No [email or web address] Information not available 03/15/2025 What Is Your Level Of Caffeine Consumption? Occasional [email or web address] Information not available 03/15/2025 In The 14 Days Before Symptom Onset, Have You Had Close Contact With A Laboratory-confir med COVID-19 While That Case Was Ill? No [email or web address] Information not available 03/15/2025 In The 14 Days Before Symptom Onset, Have You Had Close Contact With A Person Who Is Under Investigation For COVID-19 While That Person Was Ill? No [email or web address] Information not available 03/15/2025 Have You Been To An Area Known To Be High Risk For COVID-19? No Information not available 03/15/2025 Are You Deaf Or Do You Have Serious Difficulty Hearing? No [email or web address] Information not available 03/15/2025 What Type Of Diet Are You Following? REGULAR [email or web address] Information not available 03/15/2025 Have You Processed Blood Or Body Fluids From An Ebola Virus Disease Patient Without Appropriate PPE? No [email or web address] Information not available 03/15/2025 Do You Reside In Or Have You Traveled To An Area Where Ebola Virus Transmission Is Active? No [email or web address] Information not available 03/15/2025 Have There Been Any Changes To Your Family Or Social Situation? No [email or web address] Information no t available 03/15/2025 What Is The Fluoride Status Of Your Home? Unknown [email or web address] Information not available 03/15/2025 Are There Any Guns Present In Your Home? No [email or web address] Information not available 03/15/2025 Have You Recently Or Are You Planning To Travel To An Area With Zika Virus? No [email or web address] Information not available 03/15/2025 Do You Use Insect Repellent Routinely? Yes [email or web address] Information not available 03/15/2025 Do You Feel Safe At Home? Yes [email or web address] Information not available 03/15/2025 Do You Have A Medical Power Of Licensed Nuclear Control Room Operator? No Information not available 03/15/2025 What Was The Date Of Your Most Recent Tobacco Screening? 03/15/2025 [email or web address] Information not available 03/15/2025 What Is Your Current Pack Years? 10-19packyears [email or web address] Information not available 03/15/2025 Do You Have Any Pets? No [email or web address] Information not available 03/15/2025 Do You Use Your Seat Belt Or Car Seat Routinely? Yes [email or web address] Information not available 03/15/2025 Do You Have Smoke And Carbon Monoxide Detectors In Your Home? Yes Information not available 03/15/2025 Are You Passively Exposed To Smoke? No [email or web address] Information no t available 03/15/2025 How Much Tobacco Do You Smoke? 1 PPD [email or web address] Information not available 03/15/2025 Do You Use Sunscreen Routinely? Yes [email or web address] Information not available 03/15/2025 Has Tobacco Cessation Counseling Been Provided? Yes [email or web address] Information not available 03/15/2025 On What Date Was Tobacco Cessation Counseling Provided? 03/15/2025 Information not available 03/15/2025 How Many Years Have You Smoked Tobacco? 30 Information not available 03/15/2025 Do You Have Difficulty Walking Or Climbing Stairs? No Information not available 03/15/2025 Are You Currently In School? No [email or web address] Information not available 03/15/2025 Sex: Female Functional Status Question Answer Note LastModified by Organizat ion Details LastModified Time Do you use any illicit or recreational drugs? No [email or web address] Information not available 03/15/2025 Do you or have you ever used any other forms of tobacco or nicotine? No [email or web address] Information not available 03/15/2025 What is your level of alcohol consumption? None [email or web address] Information not available 03/15/2025 Are you currently employed? Yes [email or web address] Information not available 03/15/2025 Do you have transportation difficulties? No Information not available 03/15/2025 Are you able to walk? YESWOREST [email or web address] Information not available 03/15/2025 Do you have difficulty doing errands alone? No [email or web address] Information not available 03/15/2025 Are you able to care for yourself independently? Yes [email or web address] Information not available 03/15/2025 Do you have difficulty dressing, bathing, grooming, or toileting? No [email or web address] Information not available 03/15/2025 What is your exercise level? None [email or web address] Information not available 03/15/2025 Mental Status Question Answer Note LastModified by Organizat ion Details LastModified Time Do you feel stressed (tense, restless, nervous, or anxious, or unable to sleep at night)? [id number] [email or web address] Information not available 04/16/2025 Do you have difficulty concentrating, remembering or making decisions? No [email or web address] Information no t available 03/15/2025 Family History [...] available 04/16 07:52:14 Medical History Condition Response Obesity Y Osteoporosis/Osteopenia Y Substance Abuse Y High Cholesterol Y [...] SNOMED-CT Code Diagnosis ICD10 Code Diagnosis Note [id number] ALIYAH [facility] [address] [place] [address] 03/15/2025 08:04:00 03/15/2025 11:42:24 History and physical examination, annual for health maintenance 85951113 Z00.00 Counseled regarding contracept serenity options, and need for contracept ion until no menses for 1 year. BSE reviewed and recommende d . Reviewed calcium needs, exercise, and prevention of osteoporos is . Reviewed normal perimenopa usal transition . Mammogram recommende d yearly . Colonoscop y recommende d due to family history and previous initial colonoscop y 10+ years ago. The patient was advised to continue a healthy diet and exercise regularly. Patient presents for annual visit. Vision screening: Not up to date; last examinatio n last yearDental screening: Not up to dateAny falls, fractures surgeries: deniesSpec ialist: behavioral referral for ADHDColono scopy: Not up to date; previously 10+ years agoFamily hx of colon, prostate cancer?: yes; stomach cancerAnxi ety/Depres bess screening: UTDMammogr am: Not up to date; previously 4-5 years agofamily hx of breast/cer vical cancer: deniesDEXA : not recommende d for pt age or risk factorsImm unizations : Not up to date Screening mammography 24 331925 Z12.31 referral sent Diabetes m ellitus screening 034514537 Z13.1 awaiting lab workestabl ishing baseline for pt Iron defic iency screening 851964433 Z13.0 awaiting lab workestabl ishing baseline for pt Screening for osteoporosis 209930933 Z13.820 awaiting lab workestabl ishing baseline for pt Screening for malignant neoplasm of colon 122578412 Z12.11 referral sentreport s previously having a colonoscop y > 10 years agoreports having polyp removal previously Thyroid di sorder screening 954465659 Z13.29 awaiting lab workestabl ishing baseline for pt Attention deficit hyperactivity disorder 256074380 F90.9 history of ADHDreferr al sentcurren tly taking adderall 20 mginformed pt would be unable to fill without referral Essential hypertension 85289769 I10 controlled on current regimenmed ication refillwill continue to monitorf/u in 1 month Hyperlipidemia 63162971 E78.5 controlled on current regimenmed ication refillwill continue to monitorf/u in 1 monthawait ing lab results Insomnia 015404364 G47.0 0 controlled on current medication medication refilldisc uss during behavioral health referral Migraine [id number] G43.90 9 previously tried and failed several medication s in the past including Maxalt and Imitrexsta bilized with current medication medication refillrepo rts no new concerns or issuesf/u with office for new or worsening symptoms Edema of l ower extremity 536836200 R60.0 reports history of bilateral lower extremity edemacurre ntly taking HCTZ for management medication refillawai ting lab results to determine best course for pt Health Concerns Section Related Observation LastModified by Organization Detai ls LastModified Time None Recorded Concern Status LastModified by Organization Details LastModified Time None Recorded Payers Encounter Date Sequence Insurance Name Policy Number Policy Torres Covered Member ID Torres Member ID Guarantor Name 03/15/2025 1 [facility] (MEDICAID HMO) Arleth Whitehead [id number] Geni Whitehead Notes Date Note Type Note Provider Name and Address Organization Details Recorded Time 03/15/2025 text/html ROS as noted in the HPI 50 y/o female with history of HTN, HLD, insomnia, migraines, and ADHD presents to clinic for establishment of care. Reports no new concerns or complaints. Reports that she previously had been seeing Dr. Quintanilla in [place] for primary care but reports that he had moved locations. Discussed pts PMH and past surgical history. Reports that her chronic ailments are well controlled on her medication but would need several refills since her last PCP moved locations. Reports that she received carpal tunnel surgery on both wrists in the past. She reports that her symptoms have returned to her left hand but they had been previously not an issue after the surgery for ~10 years. She reports mild symptom return in her left hand. Reports history of migraines for which she currently takes Ubrelvy. Reports having tried and failed several medications in the past including Maxalt and Imitrex. Reports successful therapy controlling symptoms with Ubrelvy. Reports history of anxiety and depression. Reports that she lost her son 9 years ago but has found healthy coping methods. Reports that she currently has no interest in anxiety medication or seeing behavioral medicine for anxiety. Reports history of ADHD and was referred to behavioral to address her medication. Reports that she stays active and avoids drinking sugary beverages. Reports that she used to drink several Mt. Dews a day but is no longer drinking them. Reports that she witnessed noticeable differences in her health since dropping the Mt. Dew. Discussed tobacco cessation with pt who currently is not interested in NRT or treatment. Reports that her last colonoscopy was 10+ years ago. Denies CP, SOB, abdominal pain, MUSTAFA, fever, chills, diarrhea, constipation, vision abnormalities, hearing loss or changes, and urinary complaints. ALIYAH WU [address] [place] [address], [id number], [facility] [place] 03/15/2025 12:53:49 OBGyn Episode No OBEpisode recorded.
--- OUTSIDE RECORDS SUMMARY | 2025-04-28 16:34 | XMS_ITS | Data Portability ---
Author Organization [facility] ADMIN Address [address] [place] [id number] Care Team Providers Care Mine Deputy Name Role Phone MATIAS PITT Primary Care Provider Assessment No assessment recorded. Plan of Treatment Reminders Order Date Submit Date Provider Last Modified By Organization Details Last Modified Time Details Appointments Medicatio n Managemen t 30 2024 03:00P M ELEUTERIO COCHRANHNP Not available Not available Not available Medicatio n Managemen t 30 2024 03:30P M ELEUTERIO COCHRANHNShona Not available Not available Not available Establish ed Visit 30 min 2025 08:00A M ALIYAH WU Not available Not available Not available Lab urinalysi s, dipstick 2024 025 tpardini [facility], [address] [place], [address], 04/16/2025 08:26:10 lipid panel, serum 2024 025 [facility] (Laboratory), [address] [place], [address], 04/16/2025 13:28:59 CBC w/ auto diff 2024 025 [facility] (Laboratory), [address] [place], [address], 03/15/2025 14:29:20 iron + TIBC + ferritin, serum [address] (Laboratory), [address] [place], [address], 03/22/2025 09:41:17 vitamin B12 + folate, serum or blood [address] (Laboratory), [address] [place], [address], 03/22/2025 09:41:17 TSH + free T4, serum [address] [place] [address] (Laboratory), [address] [place], [address], 03/22/2025 09:41:17 hemoglobi n A1C/hemog lobin total, QN, blood [address] [place] [address] (Laboratory), [address] [place], [address], 03/22/2025 09:41:17 CMP, serum or plasma [address] [place] [address] (Laboratory), [address] [place], [address], 03/15/2025 14:28:16 vitamin D, 25-hydrox y, total, serum [address] [place] [address] (Laboratory), [address] [place], [address], 03/22/2025 09:41:17 Referral gastroent erologist referral - colonosco py; previousl y done 10+ years ago 2024 025 Ren Malagon MD, [address], [place], [address], 04/12/2025 10:07:49 behaviora l health referral 2024 025 [email or web address], [address] [place], [address], 03/22/2025 09:41:25 Procedures None recorded. Surgeries None recorded. Imaging MAMMO, screening , bilateral [address] ([facility]), [address], [place], [address], 03/29/2025 08:07:15 Medication Orders hydrochlo rothiazid e 25 mg tablet 2024 025 [facility], [address] [place] [address], [facility], [place], [address], 04/16/2025 08:32:34 Ubrelvy 50 mg tablet 2024 025 [facility], [address] [place] [address], [facility], [place], [address], 04/16/2025 08:32:32 bisoprolo l fumarate 5 mg tablet 2024 025 [facility], [address] [place] [address], [facility], [place], [address], 04/16/2025 08:32:35 losartan 50 mg tablet 2024 025 [facility], [address] [place] [address], [facility] 2, [place], [address], 04/16/2025 08:32:29 atorvasta tin 40 mg tablet 2024 025 [facility], [address] [place] [address], [facility], [place], [address], 04/16/2025 08:32:31 trazodone 50 mg tablet 2024 025 [facility], [address] [place] [address], [facility], [place], [address], 03/15/2025 10:04:45 losartan 50 mg tablet 2024 025 [facility], [address] [place] [address], [facility], [place], [address], 03/15/2025 10:04:48 bisoprolo l fumarate 5 mg tablet 2024 025 [facility], [address] [place] [address], [facility], [place], [address], 03/15/2025 10:04:47 atorvasta tin 40 mg tablet 2024 025 [facility], [address] [place] [address], [facility], [place], [address], 03/15/2025 10:04:49 hydrochlo rothiazid e 25 mg tablet 2024 025 [facility], [address] [place] [address], [facility], [place], [address], 03/15/2025 10:04:51 Ubrelvy 50 mg tablet 2024 025 [facility], [address] [place] [address], [facility], [place], [address], 03/15/2025 10:04:53 Patient TargetsNo targets recorded. Patient InstructionsNo instructions recorded. 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 Referral for Screening for malignant neoplasm of colon colonoscopy; previously done 10+ years ago Referring Physician: [facility], Encounter Date: 03/15/2025 Behavioral Health Referral f or Attention deficit hyperactivity disorder Referring Physician: [facility] Medicine, Encounter Date: 03/15/2025 Results Created Date Observation Date Name Description Value Unit Range Abnormal Flag Note LastModifiedBy Organization Detail LastModifiedTime 03/15/2003/15/2025 CBC AUTO W DIFF WBC 9.0 10 4.5-11 .5 Not Available [facility] (Lab Registration) [address] [place], [address], 03/15/2025 12:43:32 03/15/20 25 03/15/2025 CBC AUTO W DIFF RBC 4.53 10 4.25-5 .57 Not Available [facility] (Lab Registration) [address] [place], [address], 03/15/2025 12:43:32 03/15/20 25 03/15/2025 CBC AUTO W DIFF HGB 13.3 g/dL 12.0-1 5.7 Not Available [facility] (Lab Registration) [address] [place], [address], 03/15/2025 12:43:32 03/15/20 25 03/15/2025 CBC AUTO W DIFF HCT 40.0 % 36.0-4 7.0 Not Available [facility] (Lab Registration) [address] [place], [address], 03/15/2025 12:43:32 03/15/20 25 03/15/2025 CBC AUTO W DIFF MCV 88.3 fL 80-95 Not Available [facility] (Lab Registration) [address] [place], [address], 03/15/2025 12:43:32 03/15/20 25 03/15/2025 CBC AUTO W DIFF MCH 29.4 pg 27.0-3 4.0 Not Available [facility] (Lab Registration) [address] [place], [address], 03/15/2025 12:43:32 03/15/20 25 03/15/2025 CBC AUTO W DIFF MCHC 33.3 g/dL 32.0-3 6.0 Not Available [facility] (Lab Registration) [address] [place], [address], 03/15/2025 12:43:32 03/15/20 25 03/15/2025 CBC AUTO W DIFF platelet count 277 10 150-45 0 Not Available [facility] (Lab Registration) [address] [place], [address], 03/15/2025 12:43:32 03/15/20 25 03/15/2025 CBC AUTO W DIFF RDW 12.4 % 12.3-1 5.1 Not Available [facility] (Lab Registration) [address] [place], [address], 03/15/2025 12:43:32 03/15/20 25 03/15/2025 CBC AUTO W DIFF MPV 11.7 fL 7.4-10 .4 high Not Available [facility] (Lab Registration) [address] [place], [address], 03/15/2025 12:43:32 03/15/20 25 03/15/2025 CBC AUTO W DIFF granulocyte% 62.5 % 40-75 Not Available [facility] (Lab Registration) [address] [place], [address], 03/15/2025 12:43:32 03/15/20 25 03/15/2025 CBC AUTO W DIFF lymphocyte% 28.4 % 15-57 Not Available [facility] (Lab Registration) [address] [place], [address], 03/15/2025 12:43:32 03/15/20 25 03/15/2025 CBC AUTO W DIFF monocyte% 6.7 % 4.0-12 .0 Not Available [facility] (Lab Registration) [address] [place], [address], 03/15/2025 12:43:32 03/15/20 25 03/15/2025 CBC AUTO W DIFF eosinophil% 1.3 % 0.0-4. 0 Not Available [facility] (Lab Registration) [address] [place], [address], 03/15/2025 12:43:32 03/15/20 25 03/15/2025 CBC AUTO W DIFF basophil% 1.0 % 0.0-1. 0 Not Available [facility] (Lab Registration) [address] [place], [address], 03/15/2025 12:43:32 03/15/20 25 03/15/2025 CBC AUTO W DIFF immature granulocytes % 0.1 % 0.0-0. 8 Not Available [facility] (Lab Registration) [address] [place], [address], 03/15/2025 12:43:32 03/15/20 25 03/15/2025 CBC AUTO W DIFF granulocyte# 5.62 10 Not Available [facility] (Lab Registration) [address] [place], [address], 03/15/2025 12:43:32 03/15/20 25 03/15/2025 CBC AUTO W DIFF lymphocyte# 2.55 10 Not Available [facility] (Lab Registration) [address] [place], [address], 03/15/2025 12:43:32 03/15/20 25 03/15/2025 CBC AUTO W DIFF monocyte# 0.60 10 Not Available [facility] (Lab Registration) [address] [place], [address], 03/15/2025 12:43:32 03/15/20 25 03/15/2025 CBC AUTO W DIFF eosinophil# 0.12 10 Not Available [facility] (Lab Registration) [address] [place], [address], 03/15/2025 12:43:32 03/15/20 25 03/15/2025 CBC AUTO W DIFF basophil# 0.09 10 Not Available [facility] (Lab Registration) [address] [place], [address], 03/15/2025 12:43:32 03/15/20 25 03/15/2025 CBC AUTO W DIFF immature granulocytes # 0.01 10 Not Available [facility] (Lab Registration) [address] [place], [address], 03/15/2025 12:43:32 03/15/20 25 03/15/2025 CBC AUTO W DIFF manual differential NO Not Available [facility] (Lab Registration) [address] [place], [address], 03/15/2025 12:43:32 03/15/20 25 03/15/2025 CBC AUTO W DIFF note Unles s other underwood noted testi ng perfo rmed at: [facility] [address] [place] [address] [phone] Mario villa MD CLIA: [id number] Not Available [facility] (Lab Registration) [address] [place], [address], 03/15/2025 12:43:32 03/15/20 25 03/15/2025 HEMOG LOBIN A1C glycosylated hemoglobin A1C 5.7 % 4.5-6. 2 Not Available [facility] (Lab Registration) [address] [place], [address], 03/15/2025 12:43:37 03/15/20 25 03/15/2025 HEMOG LOBIN A1C estimated average glucose 117 mg/dL 82-131 Not Available [facility] (Lab Registration) [address] [place], [address], 03/15/2025 12:43:37 03/15/20 25 03/15/2025 HEMOG LOBIN A1C note Brooke villa other underwood noted testi ng perfo rmed at: [facility] [address] [place] [address] [phone] Mario villa MD CLIA: [id number] Not Available [facility] (Lab Registration) [address] [place], [address], 03/15/2025 12:43:37 03/15/20 25 03/15/2025 UA DIP ONLY NO MICRO SCOPI C color yellow yellow Not Available [facility] (Lab Registration) [address] [place], [address], 03/15/2025 13:21:13 03/15/20 25 03/15/2025 UA DIP ONLY NO MICRO SCOPI C appearance clear clear Not Available [facility] (Lab Registration) [address] [place], [address], 03/15/2025 13:21:13 03/15/20 25 03/15/2025 UA DIP ONLY NO MICRO SCOPI C glucose NORM normal Not Available [facility] (Lab Registration) [address] [place], [address], 03/15/2025 13:21:13 03/15/20 25 03/15/2025 UA DIP ONLY NO MICRO SCOPI C bilirubin NEGATI VE negati ve Not Available [facility] (Lab Registration) [address] [place], [address], 03/15/2025 13:21:13 03/15/20 25 03/15/2025 UA DIP ONLY NO MICRO SCOPI C ketone NEGATI VE mg/dL negati ve Not Available [facility] (Lab Registration) [address] [place], [address], 03/15/2025 13:21:13 03/15/20 25 03/15/2025 UA DIP ONLY NO MICRO SCOPI C specific gravity 1.005 1.005- 1.035 Not Available [facility] (Lab Registration) [address] [place], [address], 03/15/2025 13:21:13 03/15/20 25 03/15/2025 UA DIP ONLY NO MICRO SCOPI C blood 25 (1+) /mcL negati ve Not Available [facility] (Lab Registration) [address] [place], [address], 03/15/2025 13:21:13 03/15/20 25 03/15/2025 UA DIP ONLY NO MICRO SCOPI C pH 6.50 5.0-7. 5 Not Available [facility] (Lab Registration) [address] [place], [address], 03/15/2025 13:21:13 03/15/20 25 03/15/2025 UA DIP ONLY NO MICRO SCOPI C protein NEGATI VE mg/dL negati ve Not Available [facility] (Lab Registration) [address] [place], [address], 03/15/2025 13:21:13 03/15/20 25 03/15/2025 UA DIP ONLY NO MICRO SCOPI C urobilnogen NORM mg/dL normal Not Available [facility] (Lab Registration) [address] [place], [address], 03/15/2025 13:21:13 03/15/20 25 03/15/2025 UA DIP ONLY NO MICRO SCOPI C nitrite NEGATI VE negati ve Not Available [facility] (Lab Registration) [address] [place], [address], 03/15/2025 13:21:13 03/15/20 25 03/15/2025 UA DIP ONLY NO MICRO SCOPI C leukocyte esterase NEGATI VE /mcL negati ve Not Available [facility] (Lab Registration) [address] [place], [address], 03/15/2025 13:21:13 03/15/20 25 03/15/2025 UA DIP ONLY NO MICRO SCOPI C dip comment NONE Not Available [facility] (Lab Registration) [address] [place], [address], 03/15/2025 13:21:13 03/15/20 25 03/15/2025 UA DIP ONLY NO MICRO SCOPI C note Unles s other underwood noted testi ng perfo rmed at: [facility] [address] [facility] [place] [address] [phone] Mario villa MD CLIA: [id number] Not Available [facility] (Lab Registration) [address] [place], [address], 03/15/2025 13:21:13 03/15/20 25 03/15/2025 THYRO ID STIMU LATIN G HORMO NE thyroid stimulating hormone 0.66 mIU/m L 0.34-4 .80 Not Available [facility] (Lab Registration) [address] [place], [address], 03/15/2025 13:30:05 03/15/20 25 03/15/2025 THYRO ID STIMU LATIN G HORMO NE note Unles s other under[place] noted testi ng perfo rmed at: [facility] [address] [place] [address] [phone] Mario villa MD CLIA: [id number] Not Available [facility] (Lab Registration) [address] [place], [address], 03/15/2025 13:30:05 03/15/20 25 03/15/2025 T4 FREE T4,free 1.08 NG/dL 0.76-1 .46 Effec tive today 013 new Refer ence Range . Not Available [facility] (Lab Registration) [address] [place], [address], 03/15/2025 13:30:06 03/15/20 25 03/15/2025 T4 FREE note Unles s other underwood noted testi ng perfo rmed at: [facility] [address] [place] [address] [phone] Mario villa MD CLIA: [id number] Not Available [facility] (Lab Registration) [address] [place], [address], 03/15/2025 13:30:06 03/15/20 25 03/15/2025 VITAM IN D TOTAL (D2+D 3) vitamin D25 (D2+D3) 62.2 NG/mL 30-100 Not Available [facility] (Lab Registration) [address] [place], [address], 03/15/2025 13:30:07 03/15/20 25 03/15/2025 VITAM IN D TOTAL (D2+D 3) note Unles s other underwood noted testi ng perfo rmed at: [facility] [address] [place] [address] [phone] Mario villa MD CLIA: [id number] Not Available [facility] (Lab Registration) [address] [place], [address], 03/15/2025 13:30:07 03/15/20 25 03/15/2025 VITAM IN B12 vitamin B12 680 pg/mL 193-98 6 Not Available [facility] (Lab Registration) [address] [place], [address], 03/15/2025 13:30:08 03/15/20 25 03/15/2025 VITAM IN B12 folate (folic acid), serum 15.4 NG/mL 8.6-58 .9 Not Available [facility] (Lab Registration) [address] [place], [address], 03/15/2025 13:30:08 03/15/20 25 03/15/2025 VITAM IN B12 note Unles s other underwood noted testi ng per[facility]med [facility] [address] [place] [address] [phone] Mario villa MD CLIA: [id number] Not Available [facility] (Lab Registration) [address] [place], [address], 03/15/2025 13:30:08 03/15/20 25 03/15/2025 COMP METAB OLIC PANEL sodium 139 mmol/ L 136-14 5 Not Available [facility] (Lab Registration) [address] [place], [address], 03/15/2025 13:30:09 03/15/20 25 03/15/2025 COMP METAB OLIC PANEL potassium 3.5 mmol/ L 3.5-5. 1 Not Available [facility] (Lab Registration) [address] [place], [address], 03/15/2025 13:30:09 03/15/20 25 03/15/2025 COMP METAB OLIC PANEL chloride 102 mmol/ L 98-107 Not Available [facility] (Lab Registration) [address] [place], [address], 03/15/2025 13:30:09 03/15/20 25 03/15/2025 COMP METAB OLIC PANEL carbon dioxide 31 mmol/ L 21-32 Not Available [facility] (Lab Registration) [address] [place], [address], 03/15/2025 13:30:09 03/15/20 25 03/15/2025 COMP METAB OLIC PANEL anion gap 6.0 Not Available [facility] (Lab Registration) [address] [place], [address], 03/15/2025 13:30:09 03/15/20 25 03/15/2025 COMP METAB OLIC PANEL glucose 98 mg/dL 70-110 Not Available [facility] (Lab Registration) [address] [place], [address], 03/15/2025 13:30:09 03/15/20 25 03/15/2025 COMP METAB OLIC PANEL blood urea nitrogen 13 mg/dL 7-18 Not Available [facility] (Lab Registration) [address] [place], [address], 03/15/2025 13:30:09 03/15/20 25 03/15/2025 COMP METAB OLIC PANEL creatinine 1.1 mg/dL 0.6-1. 0 high Not Available [facility] (Lab Registration) [address] [place], [address], 03/15/2025 13:30:09 03/15/20 25 03/15/2025 COMP METAB OLIC PANEL BUN/creatini ne ratio 11.8 9-21 Not Available [facility] (Lab Registration) [address], [place], [address], 03/15/2025 13:30:09 03/15/20 25 03/15/2025 COMP METAB [...] cooper ing kiney funct ion. Not Available [facility] (Lab Registration) [address], [place], [address], 03/15/2025 13:30:09 03/15/20 25 03/15/2025 COMP METAB OLIC PANEL osmolality (calculated) 289 mOsm/ kg 275-30 1 OSMOL ALITY IS A CALCU LATIO N UTILI ZING THE SERUM /PLAS MA SODIU M, GLUCO SE AND UREA NITRO GEN (BUN) LEVEL S. FOR THE MOST ACCUR ATE RESUL T A MEASU RED SERUM OSMOL ALITY IS SUGGE STED. Not Available [facility] (Lab Registration) [address], [place], [address], 03/15/2025 13:30:09 03/15/20 25 03/15/2025 COMP METAB OLIC PANEL total protein 7.7 g/dL 6.4-8. 2 Not Available [facility] (Lab Registration) [address], [place], [address], 03/15/2025 13:30:09 03/15/20 25 03/15/2025 COMP METAB OLIC PANEL albumin 4.1 g/dL 3.4-5. 0 Not Available [facility] (Lab Registration) [address] [place], [address], 03/15/2025 13:30:09 03/15/20 25 03/15/2025 COMP METAB OLIC PANEL calcium 9.5 mg/dL 8.5-10 .1 Not Available [facility] (Lab Registration) [address] [place], [address], 03/15/2025 13:30:09 03/15/20 25 03/15/2025 COMP METAB OLIC PANEL corrected calcium 9.4 mg/dL 8.5-10 .1 Not Available [facility] (Lab Registration) [address] [place], [address], 03/15/2025 13:30:09 03/15/20 25 03/15/2025 COMP METAB OLIC PANEL bilirubin total 0.2 mg/dL 0.4-1. 5 low Not Available [facility] (Lab Registration) [address] [place], [address], 03/15/2025 13:30:09 03/15/20 25 03/15/2025 COMP METAB OLIC PANEL AST (SGOT) 25 U/L 15-37 Not Available [facility] (Lab Registration) [address] [place], [address], 03/15/2025 13:30:09 03/15/20 25 03/15/2025 COMP METAB OLIC PANEL ALT (SGPT) 25 U/L 12-78 Not Available [facility] (Lab Registration) [address] [place], [address], 03/15/2025 13:30:09 03/15/20 25 03/15/2025 COMP METAB OLIC PANEL alk phosphatase 81 U/L 50-120 Not Available [facility] (Lab Registration) [address] [place], [address], 03/15/2025 13:30:09 03/15/20 25 03/15/2025 COMP METAB OLIC PANEL note Unles s other underwood noted testi ng perfo rmed at: [facility] [address] [place] [phone] Mario villa MD CLIA: [id number] Not Available [facility] (Lab Registration) [address] [place], [address], 03/15/2025 13:30:09 03/15/20 25 03/15/2025 TJ TIN ferritin 296 NG/mL 8-388 Not Available [facility] (Lab Registration) [address] [place], [address], 03/15/2025 13:30:09 03/15/20 25 03/15/2025 TJ TIN note Unles s other underwood noted testi ng perfo rmed at: [facility] [address] [place] [phone] Mario villa MD CLIA: [id number] Not Available [facility] (Lab Registration) [address] [place], [address], 03/15/2025 13:30:09 03/15/20 25 03/15/2025 IRON/ TIBC/ %SAT (IRON STUDI ES) iron 104 ug/dL 35-150 Not Available [facility] (Lab Registration) [address] [place], [address], 03/15/2025 15:38:04 03/15/20 25 03/15/2025 IRON/ TIBC/ %SAT (IRON STUDI ES) total iron bind cap (TIBC) 318 ug/dL 250-45 0 Not Available [facility] (Lab Registration) [address] [place], [address], 03/15/2025 15:38:04 03/15/20 25 03/15/2025 IRON/ TIBC/ %SAT (IRON STUDI ES) % saturation 33 % 15-55 Not Available [facility] (Lab Registration) [address] [place], [address], 03/15/2025 15:38:04 03/15/20 25 03/15/2025 IRON/ TIBC/ %SAT (IRON STUDI ES) note Unles s other underwood noted testi ng perfo rmed at: [facility] [address] [place] [address] [phone] Mario villa MD CLIA: [id number] Not Available [facility] (Lab Registration) [address] [place], [address], 03/15/2025 15:38:04 04/16/20 25 04/16/2025 LIPID PANEL triglyceride 112 mg/dL 20-200 The Natio nal [employer] t[employer] am (NCEP ) has set the follo wing guide lines for Fasti ng Trigl yceri cornelius: CATHY L: <150 mg/dL BORDE RLINE HIGH: 150 - 199 mg/dL HIGH: 200 - 499 mg/dL VERY HIGH: > or =500 mg/dL Not Available [facility] (Lab Registration) [address], [place], [address], 04/16/2025 13:28:59 04/16/20 25 04/16/2025 LIPID PANEL cholesterol 128 mg/dL 0-200 The [employer]io nal [employer]ca t[employer]gr am (NCEP ) has set the follo wing guide lines for Fasti ng Mena stero l: CHARANJIT ABLE: <200 mg/dL BORDE RLINE HIGH: 200 - 239 mg/dL HIGH: > or =240 mg/dL Not Available [facility] (Lab Registration) [address] [place], [address], 04/16/2025 13:28:59 04/16/20 25 04/16/2025 LIPID PANEL HDL cholesterol 42 mg/dL 60- low The [employer]io nal [employer] l [employer]ca t[employer]gr am (NCEP ) has set the follo wing guide lines for Fasti ng HDL Mena stero l: LOW HDL: <40 mg/dL CATHY L: 40 - 60 mg/dL CHARANJIT ABLE: >60 mg/dL Not Available [facility] (Lab Registration) [address], [place], [address], 04/16/2025 13:28:59 04/16/20 25 04/16/2025 LIPID PANEL LDL calculated 64 mg/dL 100- low The [employer]io nal [employer]ca t[employer]gr am (NCEP ) has set the follo wing guide lines for Fasti ng LDL Mena stero l: OPTIM AL: < 100 mg/dL LOW RISK: 100 - 129 mg/dL BORDE RLINE HIGH: 130 - 159 mg/dL HIGH: 160 - 189 mg/dL VERY HIGH: > or = 190 mg/dL Not Available [facility] (Lab Registration) [address] [place], [address], 04/16/2025 13:28:59 04/16/20 25 04/16/2025 LIPID PANEL chol/HDL ratio 3 -5 Not Available [facility] (Lab Registration) [address] [place], [address], 04/16/2025 13:28:59 04/16/20 25 04/16/2025 LIPID PANEL note Unles s other underwood noted testi ng perfo rmed at: [facility] [address] [place] [address] [phone] Mario villa MD CLIA: [id number] Not Available [facility] (Lab Registration) [address] [place], [address], 04/16/2025 13:28:59 04/16/20 25 04/16/2025 urina lysis , dipst ick Leukocytes (reference range) negati ve Not Available [place] [address] [place], [address], 04/16/2025 08:18:48 04/16/20 25 04/16/2025 urina lysis , dipst ick Nitrite (reference range:) negati ve Not Available [place] [address] [place], [address], 04/16/2025 08:18:48 04/16/20 25 04/16/2025 urina lysis , dipst ick Urobilinogen (reference range) 0.2 Not Available [address] [place], [address], 04/16/2025 08:18:48 04/16/20 25 04/16/2025 urina lysis , dipst ick Protein (reference range) negati ve Not Available [address] [place], [address], 04/16/2025 08:18:48 04/16/20 25 04/16/2025 urina lysis , dipst ick pH (reference range 5-8.5) 5.5 Not Available [address] [place], [address], 04/16/2025 08:18:48 04/16/20 25 04/16/2025 urina lysis , dipst ick Blood (reference range:) small Not Available [address] [place], [address], 04/16/2025 08:18:48 04/16/20 25 04/16/2025 urina lysis , dipst ick Specific [place] (reference range) 1.025 Not Available [address] [place], [address], 04/16/2025 08:18:48 04/16/20 25 04/16/2025 urina lysis , dipst ick Ketone (reference range) negati ve Not Available [address] [place], [address], 04/16/2025 08:18:48 04/16/20 25 04/16/2025 urina lysis , dipst ick Bilirubin (reference range) negati ve Not Available [address] [place], [address], 04/16/2025 08:18:48 04/16/2004/16/2025 urina lysis , dipst ick Glucose (reference range) negati ve Not Available [address] [place], [address], 04/16/2025 08:18:48 04/16/2004/16/2025 urina lysis , dipst ick Color (reference range: yellow-brown ) Yellow Not Available [address] [place], [address], 04/16/2025 08:18:48 Result Notes None recorded. Problems Name Problem SNOMED Code Status Onset Date Resolution Date Notes Provider Name and Address Organization Details Recorded Time Essential hypertension 43560464 Active 2024 Dmitry Davi null, [place] - [facility] [place] 5 08:31:47 Attention deficit hyperactivity disorder 994642382 Active 2024 Dmitry Tomlinson null, [place] [facility] [place] 5 08:31:56 Hyperlipidemia 49917246 Active 2024 Dmitry Tomlinson null, [place] [facility] [place] 5 08:32:10 Migraine 92195023 Active 2024 Dmitry Tomlinson null, [place] [facility] [place] 5 08:32:35 Insomnia 633905571 Active 2024 Dmitry Tomlinson null, [place] [facility] [place] 5 08:33:10 Problem Notes None recorded. Procedures Surgical History Date Name Laterality Status Provider Name and Address Organization Details Recorded Time 10/04/19 Carpal Tunnel Surgery completed Dmitry Tomlinson [place] [facility] [place] 03/15/2025 08:35:36 03/15/20 appendectomy completed Dmitry FARRELL - [facility] [place] 03/15/2025 08:35:58 10/04/19 hysterectomy completed Dmitry FARRELL [facility] [place] 03/15/2025 08:36:35 11/05/19 00 section completed Dmitry FARRELL [facility] [place] 03/15/2025 08:36:18 10/04/18 98 Gallbladder [facility] [place] 03/15/2025 08:36:53 Other completed Sandrasalbador FARRELL [facility] [place] 04/16/2025 08:03:57 Appendectomy completed Sandrasalbador Granados [facility] [place] 04/16/2025 08:03:57 Colonoscopy completed [facility]UD [facility] [place] 04/16/2025 08:03:57 Craps Dealer Surgery completed Sandrasalbador Granados BUD [facility] [place] 04/16/2025 08:03:57 Imaging Results None recorded. Procedure Notes None recorded. Medical Equipment None Reported. Allergies Allergen ID Allergen Name Allergen Category Reaction Reaction Severity Criticality Documentation Date Start Date Code Code System Note Provider Name and Address Organization Details Recorded Time 372466 Product containin g penicilli n (product) medicatio n rash Not available high 03/15/2025 96048 8001 SNOMED BUD Pantoja [facility] [place] 5 08:29:45 919394 Imitrex medicatio n hallucina tions Not available high 03/15/2025 57905 3 RxNorm BUD Pantoja SOLANGE [facility] [place] 5 08:30:09 518848 buspirone medicatio n myalgias (muscle pain) Not available high 03/15/2025 1827 RxNorm BUD Pantoja [facility] & [place] 5 08:30:26 Medications Name Sig Start Date [...] Updated DateTime 5 165.1 cm 28.5 kg/m2 43622.3 g 98.7 [degF] 99 % 99 % 74 /min 18 /min 111/74 mm[Hg] Dmitry FARRELL [facility] [place] 5 08:28:49 Date Recorded Body height Body mass index (BMI) Body weight Body temperature Oxygen saturation Oxygen saturation in Arterial blood by Pulse oximetry Heart rate Respiratory rate Systolic And Diastolic Provider Name and Address Organization Details Last Updated DateTime 5 165.1 cm 27.4 kg/m2 75969.3 g 97.8 [degF] 98 % 98 % 75 /min 14 /min 120/75 mm[Hg] Sandra Arnold [facility] [place] 08:03:31 Social History Question Answer Notes LastModified by Organizat ion Details LastModified Time Tobacco Smoking Status Current Every Day Smoker Dmitry cotter, [facility] [place] 03/15/2025 08:34:28 Do You Have An Advance Directive? No [email or web address] Information not available 03/15/2025 If You Are , What Was Your Level Of Alcohol Consumption Prior To ? None [email or web address] Information not available 03/15/2025 Do You Wear A Helmet When Biking? Yes [email or web address] Information not available 03/15/2025 Are You Blind Or Do You Have Difficulty Seeing? No [email or web address] Information not available 03/15/2025 What Is Your Level Of Caffeine Consumption? Occasional [email or web address] Information not available 03/15/2025 In The 14 Days Before Symptom Onset, Have You Had Close Contact With A Laboratory-confir med COVID-19 While That Case Was Ill? No [email or web address] Information not available 03/15/2025 In The 14 Days Before Symptom Onset, Have You Had Close Contact With A Person Who Is Under Investigation For COVID-19 While That Person Was Ill? No [email or web address] Information not available 03/15/2025 Have You Been To An Area Known To Be High Risk For COVID-19? No [email or web address] Information not available 03/15/2025 Are You Deaf Or Do You Have Serious Difficulty Hearing? No [email or web address] Information not available 03/15/2025 What Type Of Diet Are You Following? REGULAR [email or web address] Information not available 03/15/2025 Have You Processed Blood Or Body Fluids From An Ebola Virus Disease Patient Without Appropriate PPE? No [email or web address] Information not available 03/15/2025 Do You Reside In Or Have You Traveled To An Area Where Ebola Virus Transmission Is Active? No [email or web address] Information not available 03/15/2025 Have There Been Any Changes To Your Family Or Social Situation? No [email or web address] Information no t available 03/15/2025 What Is The Fluoride Status Of Your Home? Unknown [email or web address] Information not available 03/15/2025 Are There Any Guns Present In Your Home? No [email or web address] Information not available 03/15/2025 Have You Recently Or Are You Planning To Travel To An Area With Zika Virus? No [email or web address] Information not available 03/15/2025 Do You Use Insect Repellent Routinely? Yes [email or web address] Information not available 03/15/2025 Do You Feel Safe At Home? Yes [email or web address] Information not available 03/15/2025 Do You Have A Medical Power Of Border Measurer And Cutter? No [email or web address] Information not available 03/15/2025 What Was The Date Of Your Most Recent Tobacco Screening? 03/15/2025 [email or web address] Information not available 03/15/2025 What Is Your Current Pack Years? 10-19packyears [email or web address] Information not available 03/15/2025 Do You Have Any Pets? No [email or web address] Information not available 03/15/2025 Do You Use Your Seat Belt Or Car Seat Routinely? Yes [email or web address] Information not available 03/15/2025 Do You Have Smoke And Carbon Monoxide Detectors In Your Home? Yes [email or web address] Information not available 03/15/2025 Are You Passively Exposed To Smoke? No [email or web address] Information no t available 03/15/2025 How Much Tobacco Do You Smoke? 1 PPD [email or web address] Information not available 03/15/2025 Do You Use Sunscreen Routinely? Yes [email or web address] Information not available 03/15/2025 Has Tobacco Cessation Counseling Been Provided? Yes [email or web address] Information not available 03/15/2025 On What Date Was Tobacco Cessation Counseling Provided? 03/15/2025 [email or web address] Information not available 03/15/2025 How Many Years Have You Smoked Tobacco? 30 [email or web address] Information not available 03/15/2025 Do You Have Difficulty Walking Or Climbing Stairs? No [email or web address] Information not available 03/15/2025 Are You Currently In School? No [email or web address] Information not available 03/15/2025 Sex: Female Functional Status Question Answer Note LastModified by Organizat ion Details LastModified Time Do you use any illicit or recreational drugs? No [email or web address] Information not available 03/15/2025 Do you or have you ever used any other forms of tobacco or nicotine? No [email or web address] Information not available 03/15/2025 What is your level of alcohol consumption? None [email or web address] Information not available 03/15/2025 Are you currently employed? Yes [email or web address] Information not available 03/15/2025 Do you have transportation difficulties? No [email or web address] Information not available 03/15/2025 Are you able to walk? YESWOREST hpabqyya31 Information not available 03/15/2025 Do you have difficulty doing errands alone? No [email or web address] Information not available 03/15/2025 Are you able to care for yourself independently? Yes [email or web address] Information not available 03/15/2025 Do you have difficulty dressing, bathing, grooming, or toileting? No elxjegyf38 Information not available 03/15/2025 What is your exercise level? None [email or web address] Information not available 03/15/2025 Mental Status Question Answer Note LastModified by Organizat ion Details LastModified Time Do you feel stressed (tense, restless, nervous, or anxious, or unable to sleep at night)? [id number] tpardini Information not available 04/16/2025 Do you have difficulty concentrating, remembering or making decisions? No [email or web address] Information no t available 03/15/2025 Family History [...] SNOMED-CT Code Diagnosis ICD10 Code Diagnosis Note [id number] ALIYAH WU [facility] [address] [place] [address] 03/15/2025 08:04:00 03/15/2025 11:42:24 History and physical examination, annual for health maintenance 69426861 Z00.00 Counseled regarding contracept serenity options, and [...] Not up to date Screening mammography 24 279665 Z12.31 referral sent Diabetes m ellitus screening 838119858 Z13.1 awaiting lab workestabl ishing baseline for pt Iron defic iency screening 460082876 Z13.0 awaiting lab workestabl ishing baseline for pt Screening for osteoporosis 098774281 Z13.820 awaiting lab workestabl ishing baseline for pt Screening for malignant neoplasm of colon 795141644 Z12.11 referral sentreport s previously having a colonoscop y > 10 years agoreports having polyp removal previously Thyroid di sorder screening 892387204 Z13.29 awaiting lab workestabl ishing baseline for pt Attention deficit hyperactivity disorder 265357051 F90.9 history of ADHDreferr al sentcurren tly taking adderall 20 mginformed pt would be unable to fill without referral Essential hypertension 79685854 I10 controlled on current regimenmed ication refillwill continue to monitorf/u in 1 month Hyperlipidemia 64406428 E78.5 controlled on current regimenmed ication refillwill continue to monitorf/u in 1 monthawait ing lab results Insomnia 602431298 G47.0 0 controlled on current medication medication refilldisc uss during behavioral health referral Migraine 42342959 G43.90 9 previously tried and failed several medication s in the past including Maxalt and Imitrexsta bilized with current medication medication refillrepo rts no new concerns or issuesf/u with office for new or worsening symptoms Edema of l ower extremity 080590724 R60.0 reports history of bilateral lower extremity edemacurre ntly taking HCTZ for management medication refillawai ting lab results to determine best course for pt [id number] ALIYAH WU [facility] [address] [place] [address] 04/16/2025 07:51:40 04/16/2025 16:17:39 Hyperlipidemia 44581956 E78.5 awaiting lab resultsMed ication refillTake medication as prescribed Essential hypertension 64080978 I10 negative UAMedicati on refillTake medication as directedBP is compliant; continue current medication regimen Edema of l ower extremity 462662027 R60.0 reports longstandi ng history of peripheral edemaTake medication as prescribed Medication refill Migraine 17597089 G43.90 9 reports success with UbrelvyNo current symptomsMe dication refillTake medication as prescribed Follow-up with office if symptoms worsen Health Concerns Section Related Observation LastModified by Organization Detai ls LastModified Time None Recorded Concern Status LastModified by Organization Details LastModified Time None Recorded Advance Directives Directive N: Payers Insurance Date Sequence Insurance Name Policy Number Policy Torres Covered Member ID Torres Member ID Guarantor Name 04/27/2025 1 [employer] [facility] (MEDICAID HMO) Arleth Whitehead [id number] Geni Whitehead Notes Date Note Type Note Provider Name and Address Organization Details Recorded Time 03/15/2025 text/html ROS as noted in the HPI 50 y/o female with history of HTN, HLD, insomnia, migraines, and ADHD presents to clinic for establishment of care. Reports no new concerns or complaints. Reports that she previously had been seeing Dr. Quintanilla in [place] for primary care but reports that he [...] or changes, and urinary complaints. ALIYAH WU [address] [place] [address], [phone] [place] [facility] [place] 03/15/2025 12:53:49 04/16/2025 text/html ROS as noted in the [...] nausea, vomiting, and fever. ALIYAH WU [address] [place] [address], [phone], [facility] - [facility] 04/16/2025 08:30:04 OBGyn Episode No OBEpisode recorded.
--- NOTE | 2025-04-28 16:36 | ED_ITS ---
<Statement entered by Taya Pascual DO - 04/28/25 23:08> I was consulted by the DWIGHT, and we discussed the complexity of the problems being addressed. I approved the treatment and management plan for this patient's care in the emergency department, thus performing a substantive portion of the medical decision making. Taya Pascual DO Discharge Plan Disposition Patient Disposition: Home, Self-Care Condition: Good Prescriptions Prescriptions: No Action buprenorphine-naloxone 8-2 mg tablet, sublingual 1 tab sublingual DAILY famotidine 20 mg tablet 20 mg PO HS Qty: 30 1RF naproxen 500 mg tablet 500 mg PO BID PRN (Reason: pain in feet) Qty: 60 1RF Rx Instructions: Take with food or meal trazodone 50 mg tablet 50 mg PO HS Qty: 90 1RF hydrochlorothiazide 25 mg tablet 25 mg PO DAILY Qty: 90 1RF Ubrelvy 50 mg tablet 50 mg PO ONCE PRN (Reason: migraine) Qty: 90 1RF dextroamphetamine-amphetamine [Adderall] 20 mg tablet 20 mg PO BID Qty: 60 0RF Rx Instructions: administer doses at least 4-6 hours apart escitalopram oxalate [Lexapro] 10 mg tablet 10 mg PO DAILY Qty: 30 2RF bisoprolol fumarate 5 mg tablet 5 mg PO DAILY Qty: 90 1RF atorvastatin 40 mg tablet 40 mg PO HS Qty: 90 1RF estradiol 1 mg tablet See Rx Instructions .ROUTE .COMPLEX Qty: 90 1RF Dose Instruction: TAKE ONE TABLET BY MOUTH ONCE A DAY Rx Instructions: TAKE ONE TABLET BY MOUTH ONCE A DAY losartan 50 mg tablet 50 mg .ROUTE .COMPLEX Qty: 90 1RF Rx Instructions: 50 mg ; ondansetron 4 mg tablet,disintegrating 4 mg PO Q8H PRN (Reason: nausea and vomiting) Qty: 30 1RF Referrals Follow up/Referrals: Demetrius Pitt PA [Primary Care Provider, Medical] - See instructions Clinical Impressions Clinical Impression: Laceration of hand, left Print Language Print Language: Faroese Discharge ED Provider: Taya Pascual General Adult HPI General Chief complaint: Wound/Laceration Stated complaint: A/O - 1600 Cut left hand knife Time Seen by Provider: 04/28/25 16:12 Mode of Arrival: Ambulatory Source of Information: Patient and Relative Description of Symptoms (Recalled from ER Triage Doc. by RN): Patient presents to ED for small laceration to left thumb. Bleeding controlled on ED arrival. Patient was trying to open a camera lens cap wih a knife when the knife slipped and she cut herself. History of Present Illness HPI narrative: 50-year-old female presents emergency department with a small less than 0.5 cm laceration to the left hallux, around the webspaces, patient denies any fever chills chest pain shortness of breath nausea vomiting, constipation diarrhea no urinary symptoms, no other acute symptoms, no other acute injuries, patient states that she was trying to open a camera lens with a knife , when the knife slipped and she stabbed myself , patient endorses pain with some range of motion's, otherwise neurovascular intact, with no numbness or tingling, other past medical history is consistent with cardiac in a smoker, carpal tunnel repair bilaterally, insomnia, ADD, hypertension, hyperlipidemia, Suboxone therapy, migraine headaches, denies any alcohol or drug use initial triage vi tals unremarkable. Patient is unsure of her last tetanus. Onset (ago): hour(s) Related Data Home Medications ?Medication ?Instructions ?Recorded ?Confirmed buprenorphine 8 mg-naloxone 2 mg 1 tab sublingual DUNG Y 12/30/24 04/28/25 sublingual tablet Previous Rx's ?Medication ?Instructions ?Recorded hydrochlorothiazide 25 mg tablet 25 mg PO DAILY #90 ta bs 01/03/25 ubrogepant 50 mg tablet (Ubrelvy) 50 mg PO ONCE PRN mi graine #90 tabs 01/03/25 famotidine 20 mg tablet 20 mg PO HS For GI protectio n 01/18/25 while on NSAID #30 tabs naproxen 500 mg tablet 500 mg PO BID PRN pain in fe et #60 01/18/25 tabs trazodone 50 mg tablet 50 mg PO HS #90 tabs 5 atorvastatin 40 mg tablet 40 mg PO HS #90 tabs 5 bisoprolol fumarate 5 mg tablet 5 mg PO DAILY BP #90 t abs 01/26/25 estradiol 1 mg tablet See Rx Instructions .Route 0 01/26/25 .COMPLEX #90 tabs losartan 50 mg tablet 50 mg .Route .COMPLEX #90 ta bs 01/26/25 ondansetron 4 mg disintegrating 4 mg PO Q8H PRN nausea and 02/13/25 tablet vomiting #30 tabs dextroamphetamine-amphetamine 20 20 mg PO BID #60 tabs 03/26/25 mg tablet (Adderall) escitalopram oxalate 10 mg tablet 10 mg PO DAILY #30 t abs 03/26/25 (Lexapro) Allergies Allergy/AdvReac Type Severity Reaction Status Date / Time Penicillins (PENICILLINS) Allergy Unknown Unknown Verified 04/28/25 16:26 allergy reaction buspirone (From BuSpar) Allergy Unknown Verified 04/28/25 16:26 allergy reaction sumatriptan (From Imitrex) AdvReac Mild Unknown Verified 04/28/25 16:26 allergy reaction PFSH PFSH Disclaimer: The information contained in this section may have been updated after the patient was seen, as this information can be updated by other users. Medical History Sinusitis Sinusitis Acute bronchitis Asthma exacerbation in COPD Viral syndrome Gastroenteritis Exposure to COVID-19 virus Corneal abrasion Sinusitis Parotitis, acute Athlete's foot Lymphadenopathy Bronchitis Influenza Right lateral epicondylitis Upper respiratory infection, viral ADD (attention deficit disorder) Tuberculosis screening Vomiting Viral pharyngitis Nausea Pharyngitis Sinusitis Urinary tract infection Kidney stone COPD (chronic obstructive pulmonary disease) History of anemia HLD (hyperlipidemia) Epidermal cyst of ear Migraine Tobacco dependence syndrome Family history of heart disease Dyspnea Chest pain High blood pressure Surgical History History of bilateral carpal tunnel release History of appendectomy History of cholecystectomy History of hysterectomy History of section Family History Father Family history of myocardial infarction Other Family history of cancer Family history of hypertension Social History Smoking Status: Current every day smoker tobacco type: cigarettes packs per day: 2 second hand exposure: Yes alcohol intake: current substance use type: former substance user and amphetamines current occupational status: employed Travel in the last 8 weeks?: None housing: house current occupational exposures/hazards: No Have you lived/traveled outside US in past 30 days?: No Contact w/someone who lives/traveled outside US past 30 days?: No Exposure to someone with infectious disease in past 14 days?: No Do you have a fever (greater than 100.4 F or 38 C)?: No Have you tested positive for COVID-19?: No Exposed to someone with COVID-19 in past 14 days?: No Do you have a sore throat?: No Do you have a cough?: No Do you have any weakness?: No Do you have any diarrhea?: No Are you experiencing any unusual bleeding?: No Do you have any muscle aches/pain?: No Do you have any abdominal pain?: No Are you experiencing loss of taste or smell?: No Other Medical History Have you received the Flu Vaccine for this season: No Have you received the Pneumonia Vaccine: No ROS Obtained: Yes All systems reviewed & no additional complaints except as documented Physical Exam General General appearance: alert and in no apparent distress Head Head exam: atraumatic and normocephalic Eye Eye exam: Present PERRL and EOMI ENT ENT exam: Present mucous membranes moist Neck Neck exam: Present normal inspection Chest Chest inspection: Present normal inspection and symmetric chest wall rise Respiratory Respiratory exam: Present normal lung sounds bilaterally; Absent respiratory distress Cardiovascular Cardiovascular exam: Present regular rate and normal rhythm Abdominal Exam Abdominal exam: Present soft; Absent tenderness Extremities Exam Extremities exam: Present normal inspection Neurological Exam Neurological exam: Present alert and oriented X3 Psychiatric Psychiatric exam: Present normal affect Skin Skin exam: Present warm, dry and other (Less than 0.5 cm laceration to the left hallux around the webspaces, no erythema no evidence of any wound or drainage no active bleeding, otherwise neurovascular intact with good finger opposition and movement) Medical Decision Making Medical Records Medical records reviewed: Yes I reviewed the patient's medical records. Screening: Per USPSTF and CDC recommendations, given the prevalence of disease in our region, it is our hospital?s policy to screen for HIV and viral Hepatitis for all patients aged 18 and over and those with ongoing risk factors. Jeffry Inquiry Pt receiving controlled substance: No Jeffry was queried for this patient: No Vital Signs: 04/28/25 16:16 04/28/25 16:16 04/28/25 16:30 Temperature 99.3 F 99.3 F Temperature Source Oral Pulse Rate 99 H 78 Pulse Rate [Right Radial] 99 H Respiratory Rate 18 18 Blood Pressure 168/95 H 136/94 H Blood Pressure [Right Arm] 168/95 H Blood Pressure Mean [Right Arm] 119 Blood Pressure Source [Right Arm] Automatic Cuff Blood Pressure Position [Right Arm] Sitting 02 Sat by Pulse Oximetry 100 100 98 Oxygen Delivery Method Room Air Room Air Orders (Tests/Meds): ED MEDICATIONS Generic Name Dose Route Start Last Admin Trade Name Alonzo PRN Reason Stop Dose Admin Tetanus/Reduced Diphtheria/Acell Pertussis 0.5 ml 04/28/25 16:54 Tet/Diphth/Pert-Adult 0.5ml Syringe IM 04/28/25 16:55 .ONCE ONE Medical Decision Narrative: 50-year-old female presents emergency department with a small laceration, there would not be amicable to suture/repair, patient has good finger opposition, hemostasis has achieved in the emergency department, patient is unsure of his tetanus prophylaxis thus will update tetanus prophylaxis here in the emergency department. Offered x-ray/advanced imaging to the patient, she denied at this time, shared decision making was utilized, thinks is appropriate, hemostasis achieved, pain is controlled. Patient is good to be discharged home to self- care, she is neurovasc intact with good movement, no concern for tendon rupture or laceration. Patient was given generalized wound care precautions and wound was cleaned and dressed here in the emergency department. Patient follow-up PCP in the upcoming days, patient voiced understanding and agreed with the current plan/discharge plan. Strict return precaution were given. Critical Care Critical Care Time Critical Care Time: No
[2025-04-28] MEDS: TET/DIPHTH/PERT-ADULT 0.5ML SYRINGE 0.5 ML IM (17:07)
[2025-04-28 17:15] VITALS: BP 117/82; PULSE 60; RESP 20; TEMP 36.7; O2SAT 100
== END 2025-04-28 17:16 | disposition home or self-care (01) ==
PROVIDERS: Emergency Provider Emergency Medicine
DX: S61.412A Laceration without foreign body of left hand, initial encounter (principal); W26.0XXA Contact with knife, initial encounter; Z23 Encounter for immunization
CPT/HCPCS: 90471; 90715; 99283